=== PATIENT | male | born 2000 | race Caucasian/White ===

== ENCOUNTER 2021-04-29 02:12 | Emergency (ER) | payer OTHER, SELFPAY ==
[2021-04-29 02:17] VITALS: BP 137/80; PULSE 81; RESP 18; TEMP 37.1; O2SAT 96; BMI 25.0
[2021-04-29 03:12] LABS: Ethanol < 10 mg/dL
[2021-04-29 03:13] LABS: COVID-19 Test Negative (Negative)
[2021-04-29 03:21] LABS: Amphetamine Screen Urine Not Detected (Not Detect); Barbiturates, Urine Not Detected (Not Detect); Benzodiazepines Screen Urine Not Detected (Not Detect); Cannabinoid Screen Urine Not Detected (Not Detect); Cocaine Screen Urine Not Detected (Not Detect); Fentanyl, urine Not Detected (Not Detect); Opiate Screen Urine Not Detected (Not Detect); Phencyclidine Screen Urine Not Detected (Not Detect)
--- NOTE | 2021-04-29 04:00 | ED_ITS ---
HPI - Psych General Chief Complaint: Psychiatric Symptoms Stated Complaint: si Time Seen by Provider: 04/29/21 02:21 Source: patient Mode of arrival: EMS History of Present Illness HPI Narrative: 20-year-old male with arrival via EMS due to a break-up with his girlfriend that resulted in him having feelings of wanting to go home and ?hang myself?. Patient states that he has struggled with suicidal thoughts in the past and has had admissions for those the last of which he states was just prior to 2014. He endorses that he has been on medications when he was younger, but is no longer taking those medications at this time. He is on a waiting list to see a therapist and states that he is looking forward to being able to better manage the way that he feels. Related Data Allergies Allergy/AdvReac Type Severity Reaction Status Date / Time amphetamine [From Adderall] Allergy Intermediate Chills Verified 04/29/21 02:26 dextroamphetamine Allergy Intermediate Chills Verified 04/29/21 02:26 [From Adderall] aripiprazole [From Abilify] AdvReac Severe Anaphylaxis Verified 04/29/21 02:25 Review of Systems Review of Systems: Pertinent positives and negatives as stated in HPI 10 point review of systems is otherwise negative. [facility] Past Medical History Source: nursing notes reviewed Social History Social History Advance Directives: No Advance Directives Information Provided: No Physical Exam Vital Signs: Vital Signs: Last Vital Signs Temp 98.7 F 04/29/21 02:17 Pulse 81 04/29/21 02:17 Resp 18 04/29/21 02:17 BP 137/80 04/29/21 02:17 Pulse Ox 96 04/29/21 02:17 Body Mass Index 25.0 VITAL SIGNS: Reviewed. GENERAL: Well developed, well nourished, in no acute distress. HEAD: Normocephalic/atraumatic EYES: PERRLA, EOMI LUNGS: Normal breath sounds. No adventitious sounds or accessory muscle use. SpO2<96> CARDIOVASCULAR: Regular rate and rhythm without noted murmurs ABDOMEN: Soft, non-tender, non-distended with bowel sounds. NEUROLOGIC: Alert and oriented x 4. PSYCH: Normal affect, logical thought process, cooperative Course Course Course Narrative: 20-year-old male with history of depression and suicidal ideation who presents with initial suicidal thoughts of hanging himself that he does not feel he would follow through with, but appears to have insight and states that he would ?never actually do it?. On review all investigations he is otherwise cleared for further evaluation by the behavioral team. Patient was evaluated by the behavioral team and their recommendations are for discharge as patient has a therapist which he will follow-up with today, and they plan to contact the patient and communicate with him for the next 2-3 days to ensure that he follows up with this plan. MDM - Psych Lab Data Labs: Lab Results 04/29/21 04/29/21 04/29/21 Range/Units 02:32 02:32 02:32 Urine Opiates Screen Not Detected (Not Detect) Urine Fentanyl Screen Not Detected (Not Detect) Ur Barbiturates Screen Not Detected (Not Detect) Ur Phencyclidine Scrn Not Detected (Not Detect) Ur Amphetamines Screen Not Detected (Not Detect) U Benzodiazepines Scrn Not Detected (Not Detect) Urine Cocaine Screen Not Detected (Not Detect) U Marijuana (THC) Screen Not Detected (Not Detect) Ethyl Alcohol < 10 mg/dL COVID-19 ([facility]ADIM) Negative (Negative) COVID-19 Clin Com See Note Discharge Plan Discharge Clinical Impression: Depression, Acute anxiety Patient Disposition: Home, Self-Care Instructions: Depression (ED), Anxiety (ED) Additional Instructions: Follow-up with your therapist this morning. Do not hesitate to return to the emergency room if you feel any worsening of your symptoms.
--- NOTE | 2021-04-29 06:37 | PC.NURSE ---
Patient is in bed appears leeping, no distress observed/reported, BHN assessed the patient disposition d/c home and f/u with therapist, VSJarrett, will continue to monitor
[2021-04-29 07:35] VITALS: RESP 16
== END 2021-04-29 09:39 | disposition home or self-care (01) ==
PROVIDERS: Emergency Provider Student in an Organized Health Care Education/Training Program
DX: F33.1 Major depressive disorder, recurrent, moderate (principal); R45.851 Suicidal ideations; F41.1 Generalized anxiety disorder; F43.0 Acute stress reaction; Z20.822 Contact with and (suspected) exposure to COVID-19; Z79.899 Other long term (current) drug therapy
CPT/HCPCS: 36415; 80307; 82077; 87635; 99284

== ENCOUNTER 2021-05-29 18:37 | Emergency (ER) | payer OTHER, SELFPAY ==
[2021-05-29 18:48] VITALS: BP 135/77; PULSE 104; RESP 17; TEMP 38.1; O2SAT 97; BMI 32.5
--- NOTE | 2021-05-29 19:03 | ED.URI ---
HPI - URI/Sore Throat General Chief Complaint: Upper Respiratory Symptoms Stated Complaint: bleeding tonsils Time Seen by Provider: 05/29/21 18:42 Source: patient and EMS Mode of arrival: EMS Limitations: no limitations History of Present Illness HPI Narrative: 20-year-old male presents to the ER with severe sore throat and swollen tonsils started yesterday. He reports painful and difficulty talking, difficulty eating and drinking. He reports having a ?hacking sick? and coughed up some bloody sputum. He describes it as blood-streaked phlegm. This scared him so he called 911. He also reports subjective fevers and chills. He was unable to eat today because of pain. He reports voice changes and pain with speaking. No neck swelling. No nausea, vomiting, diarrhea or abdominal pain. He reports his girlfriend just found out she has strep throat. MD elicited complaint: sore throat Onset (ago): day(s) (1) Consistency: constant Severity: severe Pain scale (0-10): 10 Description of mucous: bloody Able to tolerate fluids by mouth: Yes Exacerbating factors: swallowing and speaking Relieving factors: nothing Context: sick contacts (Girlfriend just got diagnosed with strep throat) Associated symptoms: fever, voice changes and sore throat Treatments prior to arrival: none Related Data Previous Rx's Medication Instructions Recorded amoxicillin 500 mg tablet 500 mg PO Q12H #20 tab 05/29/21 Allergies Allergy/AdvReac Type Severity Reaction Status Date / Time amphetamine [From Adderall] Allergy Intermediate Chills Verified 04/29/21 02:26 dextroamphetamine Allergy Intermediate Chills Verified 04/29/21 02:26 [From Adderall] aripiprazole [From Abilify] AdvReac Severe Anaphylaxis Verified 04/29/21 02:25 Review of Systems Review of Systems: Constitutional: + Fever, + Chills ENT/Mouth: + sore throat, No Rhinorrhea, No Swallowing Difficulty Eyes: No Eye Pain, No Swelling, No Redness Cardiovascular: No Chest Pain, No SOB, No Orthopnea, No Edema Respiratory: + Cough, + Sputum, No Wheezing, No dyspnea Gastrointestinal: No Nausea, No Vomiting, No Diarrhea, No abdominal Pain Musculoskeletal: No joint pain, No Myalgias Skin: No Skin Lesions, No rash Neuro: No Weakness, No Numbness, No Dizziness, + Headache Psych: + Anxiety/Panic, No Depression Heme/Lymph: No Bruising, No Lymphadenopathy PMFSH Social History Social History Advance Directives: No Advance Directives Information Provided: No Physical Exam Vital Signs: Vital Signs: Last Vital Signs Temp 99.5 F 05/29/21 20:00 Pulse 99 05/29/21 20:00 Resp 17 05/29/21 20:00 BP 128/76 05/29/21 20:00 Pulse Ox 96 05/29/21 20:00 Body Mass Index 32.5 Appearance: Alert. Oriented X3. No acute distress. Eyes: Pupils equal, round and reactive to light. ENT: Posterior oropharynx with severe generalized erythema and bilateral tonsillar swelling, no exudate, uvula midline, no peritonsillar abscess appreciated. Voice is hoarse. He is handling secretions normally. Neck: Normal inspection. Neck supple. No neck swelling. CVS: Normal heart rate and rhythm. Pulses normal. Respiratory: No respiratory distress. Breath sounds normal. Abdomen: Soft and nontender. +BS x4 Skin: Skin warm and dry. Normal skin color. Normal skin turgor. No rashes. Extremities: No lower extremity edema. Neuro: Oriented X 3. No motor deficit. No sensory deficit. Course Course Course Narrative: 20-year-old male reporting to the ER with severe sore throat, hoarse voice difficulty eating and drinking and reports of bloody sputum x1. On arrival he is in no distress handling secretions normally; he does avoid hoarse voice. He is a low-grade fevers hemodynamically stable. Suspect strep throat given the known exposure. No signs of peritonsillar or retropharyngeal abscess. Will medicate and reassess. Will test for COVID as well, although suspicion is low. Reevaluation(s) Reevaluation #1: Strep positive. Tolerated oral medications well. He is feeling better. His voice is much better. He is stable for discharge home with oral antibiotics. MDM - URI/Sore Throat Lab Data Labs: Lab Results 05/29/21 05/29/21 Range/Units 19:18 19:18 COVID-19 ([facility]ADIM) Negative (Negative) COVID-19 Clin Com See Note S. pyogenes GrpA LUCIA Positive A (Negative) Critical Care Time Critical Care Time Critical Care Time: No Discharge Plan Discharge Clinical Impression: Pharyngitis Qualifiers: Pharyngitis/tonsillitis etiology: streptococcus Qualified Code(s): J02.0 - Streptococcal pharyngitis Patient Disposition: Home, Self-Care Instructions: Strep Throat (ED) Additional Instructions: You were found to have strep throat. Take the prescribed antibiotics as directed. Start 1st thing tomorrow morning. Recommend warm saltwater gargle several times per day. Get [id number] Chloraseptic spray or step call lozenges, both found in the cold and flu I will to help numb the back your throat. Follow-up with your doctor as needed. If you develop new or worsening symptoms call 911 or come back to the ER for further evaluation. Prescriptions: New amoxicillin 500 mg tablet 500 mg PO Q12H Qty: 20 RF: 0
[2021-05-29 19:31] LABS: IDNOW Serial# 08D9AD1C; Strep A Nucleic Acid Positive (Negative)
[2021-05-29] MEDS: Ketorolac Tromethamine 60 MG/2 ML VIAL IM (19:32)
[2021-05-29] MEDS: dexAMETHasone sod phosphate 10 MG/ML VIAL PO (19:32)
[2021-05-29 19:42] LABS: COVID-19 Test Negative (Negative); IDNOW Serial# 9DD0AD1C
[2021-05-29 20:00] VITALS: BP 128/76; BP 160/112; PULSE 112; PULSE 99; RESP 17; TEMP 37.5; O2SAT 96; O2SAT 97
[2021-05-29] MEDS: Acetaminophen Oral Liquid 650 MG/20.3 ML SOLUTION PO (21:33)
[2021-05-29] MEDS: Lidocaine HCl Viscous 2 % 15 ML SOLUTION MUCOUS MEM (21:34)
== END 2021-05-29 21:51 | disposition home or self-care (01) ==
PROVIDERS: Physician Assistant; Emergency Provider Emergency Medicine
DX: J02.0 Streptococcal pharyngitis (principal); Z20.822 Contact with and (suspected) exposure to COVID-19
CPT/HCPCS: 36415; 87635; 87651; 96372; 99284; J1100; J1885

== ENCOUNTER 2021-07-06 04:48 | Emergency (ER) | payer OTHER, SELFPAY ==
--- NOTE | ~2021-07-06 | XR_ITS ---
EXAMINATION: XR CHEST CLINICAL INFORMATION: Cough and shortness of breath COMPARISON: None TECHNIQUE: Frontal view of the chest was obtained. FINDINGS: Cardiac leads overlie the chest. The lungs are well expanded. There is no focal consolidation, edema, or effusion. No pneumothorax. The cardiomediastinal silhouette is within normal limits. No acute osseous abnormality. XR/XR chest 1V IMPRESSION: Clear lungs.
[2021-07-06 04:55] VITALS: BP 132/70; PULSE 104; RESP 30; TEMP 36.9; O2SAT 95; BMI 38.0
[2021-07-06 05:01] VITALS: BP 118/60; PULSE 100
--- NOTE | 2021-07-06 05:01 | ED.SOB ---
HPI - SOB/Dyspnea General Chief Complaint: Dyspnea Stated Complaint: diff breathing Time Seen by Provider: 07/06/21 04:59 Source: patient and EMS Mode of arrival: EMS Limitations: no limitations History of Present Illness HPI Narrative: Patient with history of asthma been sick for last few weeks got worse for last 5 days was seen at [facility] week ago and was given prednisone with partial relief now comes back for increased shortness of breath for last few days having dry cough no fever no chills patient also been vaccinated against COVID-19 and last week COVID-19 test was negative no fever no chills cough is mostly dry Related Data Previous Rx's Medication Instructions Recorded amoxicillin 500 mg tablet 500 mg PO Q12H #20 tab 05/29/21 albuterol sulfate 90 mcg/actuation 2 puff INHALATION Q4-6H PRN #8.5 g 07/06/21 aerosol inhaler (ProAir HFA) benzonatate 200 mg capsule 200 mg PO TID PRN #30 cap 07/06/21 dexamethasone 6 mg tablet 6 mg PO DAILY #7 tab 07/06/21 (Decadron) Allergies Allergy/AdvReac Type Severity Reaction Status Date / Time amphetamine [From Adderall] Allergy Intermediate Chills Verified 04/29/21 02:26 dextroamphetamine Allergy Intermediate Chills Verified 04/29/21 02:26 [From Adderall] aripiprazole [From Abilify] AdvReac Severe Anaphylaxis Verified 04/29/21 02:25 Review of Systems Review of Systems: Yes all other systems are reviewed and are negative [facility] Social History Social History Advance Directives: No Physical Exam Vital Signs: Vital Signs: Last Vital Signs Temp 98.5 F 07/06/21 04:55 Pulse 100 07/06/21 05:28 Resp 16 07/06/21 05:28 BP 134/69 07/06/21 05:28 Pulse Ox 94 07/06/21 05:28 BMI result Body Mass Index 38.0 Appearance: Alert. Oriented X3. Coughing frequently ENT: Pharynx normal. Oral Mucosa moist Neck: Normal inspection. Neck supple. CVS: Normal heart rate and rhythm. Pulses normal. Respiratory: Moderate respiratory distress. With frequent cough, Equal air entry bilateral, prolonged expiration bilateral Abdomen: Soft and nontender. Bowel sounds are present, Skin: Skin warm and dry. Normal skin color. Normal skin turgor. Extremities: No lower extremity edema. No calf tenderness Neuro: Oriented X 3. MDM - SOB/Dyspnea MDM Narrative Medical decision making narrative: Patient with asthma chest x-ray negative COVID-19 negative felt better after steroids and magnesium and nebulizing treatment discharge patient home on steroids patient does have a cat at home may be the cause for frequent exacerbation Lab Data Attestation: I reviewed the patient's lab results. Labs: Lab Results 07/06/21 Range/Units 05:00 COVID-19 (VADIM) Negative (Negative) COVID-19 Clin Com See Note Discharge Plan Discharge Clinical Impression: Asthma with exacerbation Qualifiers: Asthma severity: moderate Asthma persistence: persistent Qualified Code(s): J45.41 - Moderate persistent asthma with (acute) exacerbation Patient Disposition: Home, Self-Care Instructions: Asthma (ED) Additional Instructions: Continue your inhalers /nebulizing treatment take prednisone as prescribed follow with PCP Prescriptions: New dexamethasone [Decadron] 6 mg tablet 6 mg PO DAILY Qty: 7 RF: 0 benzonatate 200 mg capsule 200 mg PO TID PRN (Reason: cough) Qty: 30 RF: 0 albuterol sulfate [ProAir HFA] 90 mcg/actuation HFA aerosol inhaler 2 puff inhalation Q4-6H PRN (Reason: shortness of breath or wheezing) Qty: 8.5 RF: 0 No Action amoxicillin 500 mg tablet 500 mg PO Q12H Qty: 20 RF: 0
[2021-07-06 05:03] VITALS: PULSE 100; RESP 20; O2SAT 93
[2021-07-06] MEDS: Albuterol Sulfate (0.083%) 2.5 MG/3 ML VIAL.NEB 5 MG INHALE ×2 (05:03→06:47)
[2021-07-06] MEDS: Albuterol/Iprat 2.5/0.5MG 3 ML AMPUL.NEB INHALE (05:03)
--- NOTE | 2021-07-06 05:03 | PC.NURSE ---
MD and RT at bedside for eval. Plan for hour long UPD and CXR. Covid swab obtained and sent.
[2021-07-06 05:20] LABS: COVID-19 Test Negative (Negative); IDNOW Serial# 9DD0AD1C
[2021-07-06] MEDS: Magnesium Sulfate/H2O 2 GM/50 ML PIGGYBACK IV (05:25)
[2021-07-06] MEDS: dexAMETHasone 2 MG TABLET 10 MG PO (05:25)
[2021-07-06 05:28] VITALS: BP 134/69; PULSE 100; RESP 16; O2SAT 94
--- NOTE | 2021-07-06 05:28 | PC.NURSE ---
Medicated per MAR.
[2021-07-06 06:47] VITALS: PULSE 104; RESP 20; O2SAT 98
== END 2021-07-06 07:14 | disposition home or self-care (01) ==
PROVIDERS: Emergency Provider Internal Medicine
DX: J45.41 Moderate persistent asthma with (acute) exacerbation (principal); R06.02 Shortness of breath; Z79.899 Other long term (current) drug therapy; Z20.822 Contact with and (suspected) exposure to COVID-19
CPT/HCPCS: 36415; 71045; 87635; 94640; 94644; 94645; 96365; 99284; 99285; J3475; J8540

== ENCOUNTER 2021-07-28 20:03 | Emergency (ER) | payer OTHER, SELFPAY ==
--- NOTE | ~2021-07-28 | XR_ITS ---
EXAMINATION: XR CHEST CLINICAL INFORMATION: Shortness of breath. COMPARISON: Chest radiograph dated from 07/06/2021. TECHNIQUE: AP view of the chest was obtained. FINDINGS: Normal appearance of the cardiomediastinal silhouette. Mildly increased interstitial prominence without focal airspace opacities, pleural effusions or pneumothorax. No acute osseous abnormalities. XR/XR chest 1V IMPRESSION: Increased interstitial markings are indeterminate and could be related with asthma, bronchitis, reactive airways disease or atypical infections. No lobar pneumonia. No pleural effusions or pneumothorax.
[2021-07-28 20:05] VITALS: BP 122/84; PULSE 115; O2SAT 94
[2021-07-28 20:19] VITALS: BP 131/62; PULSE 104; RESP 20; TEMP 36.6; O2SAT 95; BMI 40.0
--- NOTE | 2021-07-28 20:28 | ED_ITS ---
HPI - General Adult General Chief complaint: General Medical Stated complaint: Covid +/Diff breathing Time Seen by Provider: 07/28/21 20:28 History of Present Illness HPI narrative: Patient had COVID 10 days ago complaining of shortness of breath and wheezing with getting worse using a alert and update of treatment at home for not helping him out also patient had dry cough and small blood tinged blood came out last time when he coughs Related Data Previous Rx's Medication Instructions Recorded amoxicillin 500 mg tablet 500 mg PO Q12H #20 tab 05/29/21 albuterol sulfate 90 mcg/actuation 2 puff INHALATION Q4-6H PRN #8.5 g 07/06/21 aerosol inhaler (ProAir HFA) benzonatate 200 mg capsule 200 mg PO TID PRN #30 cap 07/06/21 dexamethasone 6 mg tablet 6 mg PO DAILY #7 tab 07/06/21 (Decadron) codeine 10 mg-guaifenesin 100 mg/5 10 ml PO Q6H PRN #237 ml 07/28/21 mL oral liquid prednisone 20 mg tablet 40 mg PO DAILY #10 tab 07/28/21 Allergies Allergy/AdvReac Type Severity Reaction Status Date / Time amphetamine [From Adderall] Allergy Intermediate Chills Verified 04/29/21 02:26 dextroamphetamine Allergy Intermediate Chills Verified 04/29/21 02:26 [From Adderall] aripiprazole [From Abilify] AdvReac Severe Anaphylaxis Verified 04/29/21 02:25 [facility] Social History Social History Advance Directives: No Advance Directives Information Provided: No Physical Exam Vital Signs: Vital Signs: Last Vital Signs Temp 97.8 F 07/28/21 20:19 Pulse 96 07/29/21 00:04 Resp 16 07/29/21 00:04 BP 131/62 07/28/21 20:19 Pulse Ox 102 H 07/29/21 00:04 Oxygen Flow Rate 2 07/28/21 20:19 BMI result Body Mass Index 40.0 Appearance: Alert. Oriented X3. Coughing frequently ENT: Pharynx normal. Oral Mucosa moist Neck: Normal inspection. Neck supple. CVS: Normal heart rate and rhythm. Pulses normal. Respiratory: No respiratory distress. Equal air entry bilateral, bilateral wheezing and rhonchi Abdomen: Soft and nontender. Bowel sounds are present, Skin: Skin warm and dry. Normal skin color. Normal skin turgor. Extremities: No lower extremity edema. No calf tenderness Neuro: Oriented X 3. Medical Decision Making MDM Narrative Medical decision making narrative: Patient with asthma COVID-19 negative at this time already had COVID 10 days ago surgeon 94% at room air will discharge patient home advised to quit take prednisone continue inhaler Lab Data Lab results reviewed: Yes I reviewed the patient's lab results. Labs: Lab Results 07/28/21 Range/Units 22:19 COVID-19 (VADIM) Negative (Negative) COVID-19 Clin Com See Note Discharge Plan Discharge Clinical Impression: Acute asthmatic bronchitis Patient Disposition: Home, Self-Care Instructions: Asthma (ED) Additional Instructions: Continues inhaler/nebulizing machine Prednisone as advised Follow with PCP if not better Cough syrup as advised Prescriptions: New codeine-guaifenesin 10-100 mg/5 mL liquid 10 ml PO Q6H PRN (Reason: cough) Qty: 237 RF: 0 prednisone 20 mg tablet 40 mg PO DAILY Qty: 10 RF: 0 No Action amoxicillin 500 mg tablet 500 mg PO Q12H Qty: 20 RF: 0 dexamethasone [Decadron] 6 mg tablet 6 mg PO DAILY Qty: 7 RF: 0 benzonatate 200 mg capsule 200 mg PO TID PRN (Reason: cough) Qty: 30 RF: 0 albuterol sulfate [ProAir HFA] 90 mcg/actuation HFA aerosol inhaler 2 puff inhalation Q4-6H PRN (Reason: shortness of breath or wheezing) Qty: 8.5 RF: 0
[2021-07-28] MEDS: Albuterol/Iprat 2.5/0.5MG 3 ML AMPUL.NEB INHALE (20:33)
[2021-07-28] MEDS: Albuterol Sulfate (0.083%) 2.5 MG/3 ML VIAL.NEB INHALE (20:33)
[2021-07-28 20:35] VITALS: PULSE 108; RESP 18; O2SAT 97
[2021-07-28] MEDS: dexAMETHasone 2 MG TABLET 10 MG PO (21:19)
[2021-07-28] MEDS: guaiFEN/Codeine SF 200/20/10ML 10 ML LIQUID PO (21:20)
[2021-07-28 22:00] VITALS: PULSE 107; RESP 17; O2SAT 94
[2021-07-28 22:42] LABS: COVID-19 Test Negative (Negative)
[2021-07-28 23:30] VITALS: PULSE 103; RESP 18; O2SAT 96
[2021-07-29 00:04] VITALS: PULSE 96; RESP 16; O2SAT 102
== END 2021-07-29 00:23 | disposition home or self-care (01) ==
PROVIDERS: Emergency Provider Internal Medicine
DX: J45.909 Unspecified asthma, uncomplicated (principal); Z20.822 Contact with and (suspected) exposure to COVID-19
CPT/HCPCS: 71045; 87635; 94640; 94644; 99284; 99285; J8540

== ENCOUNTER 2021-12-01 00:37 | Emergency (ER) | payer OTHER, SELFPAY ==
[2021-12-01 00:59] VITALS: BP 106/48; PULSE 75; RESP 18; TEMP 37; O2SAT 95; BMI 26.5
--- NOTE | 2021-12-01 02:04 | ED_ITS ---
HPI - Psych General Chief Complaint: Psychiatric Symptoms Stated Complaint: SI NO PLAN,SECTION 12 Time Seen by Provider: 12/01/21 02:04 Source: patient, EMS and police Mode of arrival: ambulatory Limitations: no limitations History of Present Illness HPI Narrative: 21-year-old male came in for evaluation of depression and suicidal ideation. Patient admitted that he broke up with his girlfriend earlier today feeling very depressed, patient initially was feeling suicidal and wanted to hurt himself, called suicidal hotline and the police, the police found a knife with the patient that he was going to hurt himself with, section 12 was initiated by the police and transported to the hospital. Patient now feels much calmer, no definitive plan to hurt himself at this point. Related Data Home Medications Medication Instructions Recorded Confirmed escitalopram oxalate 10 mg tablet 1 tab PO QAM 12/01/21 12/01/21 Previous Rx's Medication Instructions Recorded albuterol sulfate 90 mcg/actuation 2 puff INHALATION Q4-6H PRN #8.5 g 07/06/21 aerosol inhaler (ProAir HFA) Allergies Allergy/AdvReac Type Severity Reaction Status Date / Time amphetamine [From Adderall] Allergy Intermediate Chills Verified 04/29/21 02:26 dextroamphetamine Allergy Intermediate Chills Verified 04/29/21 02:26 [From Adderall] aripiprazole [From Abilify] AdvReac Severe Anaphylaxis Verified 04/29/21 02:25 Review of Systems Review of Systems: All other systems are reviewed and are negative Constitutional: Reports as per HPI and Reports no additional constitutional complaints Eyes: Reports as per HPI and Reports no additional eye complaints Reports system reviewed and no additional complaints, except as documented Cardiovascular: Reports as per HPI and Reports no additional cardiovascular co mplaints Respiratory: Reports as per HPI and Reports no additional respiratory complaints Gastrointestinal: Reports as per HPI and Reports no additional gastrointestinal complaints Genitourinary: Reports no additional female genitourinary complaints Musculoskeletal: Reports no additional musculoskeletal complaints Skin/Breast: Reports system reviewed and no additional complaints, except as docu Psychiatric: Reports no additional psychiatric complaints Endocrine: Reports no additional endocrine complaints Hematologic/Lymphatic: Reports no additional hematologic/lymphatic complaints Allergic/Immunologic: Reports no additional allergic/immunologic complaints Reports system reviewed and no additional complaints, except as documented and Reports Abnormal speech present [facility] Social History Social History Advance Directives: No Physical Exam Vital Signs: Vital Signs: Last Vital Signs Temp 98.6 F 12/01/21 00:59 Pulse 75 12/01/21 00:59 Resp 18 12/01/21 00:59 BP 106/48 L 12/01/21 00:59 Pulse Ox 95 12/01/21 00:59 BMI result Body Mass Index 26.5 Vital signs have been reviewed as appeared to be correct. Blood pressure normal. Heart rate normal. Respiration rate normal. Temperature normal. Oxygen saturation normal. Appearance: Alert. Oriented X3. No acute distress. Head: Normal external exam. Normocephalic. Atraumatic. No Barbosa signs noted. No raccoon eyes noted Eyes: PERRLA. EOMI. Conjunctiva and sclera normal. Eyelids normal. ENT: TM's Normal. Pharynx normal. Uvula midline. Moist mucous membranes. No trismus noted. No drooling noted. No muffled voice noted. Neck: Normal inspection. Neck supple. FROM. No adenopathy. Thyroid Normal. No meningeal signs. No neck mass noted. CVS: Normal heart rate and rhythm. Heart sound normal. No murmurs noted. Pulses normal throughout. Respiratory: No respiratory distress. Painless inspiration. Breath sounds normal. No wheezes/rales/rhonchi noted. Chest nontender. No accessory muscle usage noted or decreased air movement noted. Abdomen: Soft and nontender. Bowel sounds normal in all 4 quadrants. No distention noted. No organomegaly noted. No visible injury noted. Back: No CVA tenderness. Full range of motion noted. Skin: Skin warm and dry. Normal skin color. Normal skin turgor. No rashes/lesions/lacerations noted. Extremities: No lower extremity edema. Extremities exhibit normal range of motion. Extremities nontender. Neuro: Oriented X 3. Cranial nerve exam: II-XII are grossly intact No motor deficit. No sensory deficit. Reflexes normal. Patient Orientation: Person, Place, Time and Situation Level of Consciousness: Awake, Appropriate and Alert Patient Behavior: Appropriate, Guarded, Cooperative and Anxious Mood Description: Constricted, Blunted and Apprehensive Affect Description: Constricted, Blunted and Apprehensive Patient Cognition Impaired: No Ability to Follow Directions: Excellent Speech Pattern: Clear, Appropriate and Spontaneous Speech Memory Description: Intact, Immediate Intact and Short Term Intact Hallucinations: None Delusions: Not Present Thought Process: Intact Thought Content: positive for Intact, positive for Logical, denies Suicidal Ideation and denies Homicidal Ideation. Depressive Symptoms: Feeling emotionally distressed. Judgement: Good Judgement and Insight: Intact Course Course Course Narrative: Assessment and plan. Depression and suicidal ideation await for BHN evaluation. Reevaluation(s) Reevaluation #1: Physician observation started at2:00 . Patient placed in physician observation because the patient needed more for BHN evaluate , patient is alert and oriented , neuro exam unchanged, unremarkable rest of physical exam. Time: 02:09 Discharge Plan Discharge Clinical Impression: Depression, Suicidal ideation Prescriptions: No Action escitalopram oxalate 10 mg tablet 1 tab PO QAM 0RF albuterol sulfate [ProAir HFA] 90 mcg/actuation HFA aerosol inhaler 2 puff inhalation Q4-6H PRN (Reason: shortness of breath or wheezing) Qty: 8. 5 0RF
[2021-12-01 02:09] LABS: Amphetamine Screen Urine Not Detected (Not Detect); Barbiturates, Urine Not Detected (Not Detect); Benzodiazepines Screen Urine Not Detected (Not Detect); Cannabinoid Screen Urine Not Detected (Not Detect); Cocaine Screen Urine Not Detected (Not Detect); Fentanyl, urine Not Detected (Not Detect); Opiate Screen Urine Not Detected (Not Detect); Phencyclidine Screen Urine Not Detected (Not Detect)
[2021-12-01 02:20] LABS: COVID-19 Test Negative (Negative)
[2021-12-01 03:02] LABS: MANUAL DIFF FLAG NO
[2021-12-01 03:05] LABS: Basophils Percent Auto 0.4 % (0-2); Eosinophils Absolute Auto 0.8 X10*3/uL (0.0-0.4); Eosinophils Percent Auto 7.9 % (0-4); Hemoglobin 17.5 g/dl (14.0-18.0); Imm Gran Abs Auto 0.02 X10*3/uL (0.00-0.03); Imm Gran Pct Auto 0.2 % (0.0-0.4); Lymphocytes Absolute Auto 3.5 X10*3/uL (1.2-4.9); Lymphocytes Percent Auto 34.9 % (20-40); Mean Corpuscular Hemoglobin 28.3 pg (27.0-33.0); Mean Corpuscular Volume 80.8 fL (80.0-98.0); Mean Platelet Volume 10.5 fL (9.4-12.4); Monocytes Absolute Auto 0.7 X10*3/uL (0.1-1.2); Monocytes Percent Auto 7.1 % (2-11); Neutrophils Absolute Auto 4.9 x10*3/uL (2.0-8.3); Neutrophils Percent Auto 49.5 % (45-73); Platelet Count 240 X10*3/uL (160-400); Red Blood Count 6.19 X10*6/uL (4.60-5.80); Red Cell Distribution Width 12.9 % (11.0-16.0); White Blood Count 9.9 X10*3/uL (4.8-10.8)
[2021-12-01 03:19] LABS: Ethanol < 10 mg/dL
[2021-12-01 03:21] LABS: Anion Gap 13 (12-20); Blood Urea Nitrogen 15 mg/dL (9-16); Calcium 9.6 mg/dL (8.4-10.2); Carbon Dioxide 26 mmol/L (22-29); Chloride 105 mmol/L (96-108); Creatinine Clr Calc Pharmacy 119.2; Estimated Glomerular Filt Rate > 60; Glucose Random 87 mg/dL (60-115); Potassium 3.9 mmol/L (3.3-5.1); Sodium 140 mmol/L (135-145)
--- NOTE | 2021-12-01 06:50 | PC.NURSE ---
Patient slept through the night, no distress observed/reported, behavior non concerning, med rec completed/pending provider's approval, VSS, BHN referral completed/confirmed/pending ETA, will continue to monitor.
[2021-12-01] MEDS: Escitalopram Oxalate 10 MG TABLET PO (07:39)
[2021-12-01 07:42] VITALS: BP 124/61; PULSE 62; RESP 13; TEMP 36.7; O2SAT 97
--- NOTE | 2021-12-01 09:37 | PC.NURSE ---
care team at bedside
--- NOTE | 2021-12-01 13:18 | MHC.CARE ---
0900 CARE Team met with patient in [facility] for risk assessment and treatment recommendations. He was alert, oriented and easily engage, appeared his stated age, had a loud, clear voice at times used profanity in his excitement but apologized. Thought process linear but notable for expansive descriptions and derailing to discuss preferred topics such as WWII facts. Patient explained that last night he and his longtime girlfriend broke up and he was walking home, felt devastated and called 911. Had a knife in his pocket which he always carries and told the police that he had it but did consider using it on himself. Reported that he and his girlfriend have been in an unhealthy relationship on and off for years and do break up frequently and admitted that he gets worked up easily and can be dramatic. 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 Stated that he gets into crisis mode but uses skills and resources vs calling 911 or coming to the hospital. Has a therapist at [facility] that he has weekly sessions with and is prescribed Lexapro which he has not been taking consistently but did today and said he could feel the effect of it calming him down. We talked about various ways to take medication at the same time every day. Patient denied current suicidal ideation plan or intention and has no history of gestures or attempts, is future oriented and has good support. Spoke to patient?s mother at length, she does not have concerns about patient taking his own life, she understands her son?s ups and downs as well as the relationship issues. Discussed medication compliance and she acknowledged that encouraging him to take medication is ineffective and agreed to hand her son the medication until a routine is established because it will help maintain stability. Patient is not in acute crisis and does not need an inpatient psychiatric admission. Patient completed safety plan and was given information about live and zoom peer support programs and warm lines. Mother will come pick patient up when discharge is complete. ED provider JUNO Villa in agreement with plan of care.
== END 2021-12-01 11:20 | disposition home or self-care (01) ==
PROVIDERS: Emergency Provider Emergency Medicine
DX: F33.1 Major depressive disorder, recurrent, moderate (principal); R45.851 Suicidal ideations; Z79.899 Other long term (current) drug therapy; Z20.822 Contact with and (suspected) exposure to COVID-19
CPT/HCPCS: 36415; 80048; 80307; 82077; 85025; 87635; 99284

== ENCOUNTER 2021-12-26 11:24 | Emergency (ER) | payer OTHER, SELFPAY ==
--- NOTE | ~2021-12-26 | XR_ITS ---
EXAMINATION: XR CHEST CLINICAL INFORMATION: Shortness of breath, cough, wheezing, low oxygen COMPARISON: Chest radiographs 07/28/2021, 07/06/2021 TECHNIQUE: Portable upright AP view of the chest was obtained. FINDINGS: The lungs are clear. There is no lobar or segmental airspace consolidation or groundglass opacity. No pneumothorax or pleural reaction or effusion. The costophrenic sulci are clear. No pneumothorax or pneumomediastinum. Heart size normal. Vascularity normal. The hilar and mediastinal contours and bony structures are unremarkable. XR/XR chest 1V IMPRESSION: Unremarkable examination.
--- NOTE | ~2021-12-26 | XR_ITS ---
EXAMINATION: CR X-RAY ANKLE AND FOOT RIGHT CLINICAL INFORMATION: Right ankle and foot pain. COMPARISON: None TECHNIQUE: 3 views each of the right foot and ankle were obtained. FINDINGS: There is no acute fracture or dislocation. The joint spaces are unremarkable. The tarsal bones are normally aligned. The soft tissues are unremarkable. XR/XR ankle RT min 3V IMPRESSION: Unremarkable right foot and ankle.
--- NOTE | ~2021-12-26 | XR_ITS ---
EXAMINATION: CR X-RAY ANKLE AND FOOT RIGHT CLINICAL INFORMATION: Right ankle and foot pain. COMPARISON: None TECHNIQUE: 3 views each of the right foot and ankle were obtained. FINDINGS: There is no acute fracture or dislocation. The joint spaces are unremarkable. The tarsal bones are normally aligned. The soft tissues are unremarkable. XR/XR foot RT min 3V IMPRESSION: Unremarkable right foot and ankle.
[2021-12-26 11:29] VITALS: BP 128/82; PULSE 85; O2SAT 94
[2021-12-26 11:30] VITALS: BP 128/62; PULSE 80; RESP 19; TEMP 37.6; O2SAT 92; BMI 33.2
[2021-12-26 11:46] VITALS: PULSE 84; O2SAT 94
[2021-12-26] MEDS: Albuterol Sulfate (0.083%) 2.5 MG/3 ML VIAL.NEB 10 MG INHALE (11:46)
--- NOTE | 2021-12-26 11:48 | ED_ITS ---
HPI - Asthma General Chief Complaint: Upper Respiratory Symptoms Stated Complaint: DIFF BREATHING,H/O ASTHMA,GETTING DUONEB PER EMS Time Seen by Provider: 12/26/21 11:35 Source: patient and EMS Mode of arrival: EMS Limitations: no limitations History of Present Illness HPI Narrative: 21-year-old male with a past medical history of asthma who reports he is a daily smoker of cigarettes presenting to the ED via EMS with complaints of a productive cough with clear/ yellow colored sputum with associated shortness of breath /wheezing for the past 3 days worse today despite using his albuterol inhaler and nebulizers of albuterol at home. Reports he has been frequently hospitalized and seen in the ER for similar complaints. He reports he has never been intubated. He denies any fevers, chills, dizziness, nasal congestion /rhinorrhea, sore throat, chest pain, dyspnea on exertion, orthopnea, palpitations, paresthesias, nausea/vomiting / diarrhea constipation, black or bloody stools, rashes, recent travel or sick contacts, lower extremity edema or calf tenderness or any other symptoms complaints or concerns at this time. MD complaint: asthma attack , shortness of breath and wheezing Onset (ago): day(s) (3) Severity: severe and similar to prior Context: none known Associated symptoms: productive cough Asthma History: childhood onset, history of frequent attacks and history of prior ED visit Treatments Prior to Arrival: inhaled bronchodilator Related Data Current Asthma Therapy: inhaled bronchodilator Home Medications Medication Instructions Recorded Confirmed escitalopram oxalate 10 mg tablet 1 tab PO QAM 12/01/21 12/01/21 Previous Rx's Medication Instructions Recorded albuterol sulfate 90 mcg/actuation 2 puff inhalation Q4-6H PRN 07/06/21 aerosol inhaler (ProAir HFA) shortness of breath or wheezing #8.5 grams albuterol sulfate 0.63 mg/3 mL 0.63 mg (3 mL) inhalation QID PRN 12/26/21 solution for nebulization shortness of breath or wheezing #75 mL albuterol sulfate 90 mcg/actuation 1 inh inhalation QID PRN shortness 12/26/21 aerosol inhaler of breath or wheezing #8.5 grams azithromycin 250 mg tablet See Rx Instructions PO .COMPLEX #6 12/26/21 tabs codeine 10 mg-guaifenesin 100 mg/5 5 ml PO Q6H PRN cold symptoms #120 12/26/21 mL oral liquid (Guaifenesin AC) mL prednisone 20 mg tablet 40 mg PO DAILY rash 5 days #10 tabs 12/26/21 Allergies Allergy/AdvReac Type Severity Reaction Status Date / Time amphetamine [From Adderall] Allergy Intermediate Chills Verified 04/29/21 02:26 dextroamphetamine Allergy Intermediate Chills Verified 04/29/21 02:26 [From Adderall] aripiprazole [From Abilify] AdvReac Severe Anaphylaxis Verified 04/29/21 02:25 Review of Systems Review of Systems: Constitutional : denies med noncompliance, no history of PE or DVT, denies recent travel, No Fever, No Chills ENT/Mouth : No Hoarseness, No sore throat, No Rhinorrhea, No Nasal congestion, No Sinus Pressure, No Ear Pain, No stridor, Eyes: No Redness, No Discharge, No Vision Changes Cardiovascular : No Chest Pain, + SOB, No Dyspnea on Exertion, No Edema, no pleurisy, Respiratory : + Cough, + wheezing, + Sputum, no stridor, no hemoptysis, Gastrointestinal : No Nausea, No Vomiting, No Diarrhea, No abdominal Pain Genitourinary : No Dysuria, No Hematuria Musculoskeletal : No joint pain/swelling, No Myalgias Extremities: no extremity swelling /pain Skin : No rash, no itching, no swelling Neuro : No Weakness, No Numbness, No Headache, No Dizziness, No Paresthesias Psych : No anxiety, depression Heme/Lymph: No Bruising, No Bleeding Endocrine : No Polyuria, No Polydipsia Yes all other systems are reviewed and are negative [facility] Past Medical History Attestation statement: The following information was validated with the patient. Source: old records reviewed and nursing notes reviewed Social History Social History Advance Directives: No Advance Directives Information Provided: No Physical Exam Vital Signs: Vital Signs: Last Vital Signs Temp 99.7 F 12/26/21 11:30 Pulse 84 12/26/21 11:46 Resp 19 12/26/21 11:30 BP 128/62 12/26/21 11:30 Pulse Ox 92 12/26/21 11:30 BMI result Body Mass Index 33.2 vital signs have been reviewed as normal and appeared to be correct. Blood pressure normal. Heart rate normal. Respiration rate normal. Temperature 99.7. Oxygen saturation 92. Appearance: Alert. Oriented X3. In acute respiratory distress. Head: Normal external exam. Normocephalic. Atraumatic. Eyes: PERRLA. EOMI. Conjunctiva and sclera normal. Eyelids normal. ENT: EAC normal. TM's Normal. Pharynx normal. Uvula midline. Moist mucous membranes. No lesions/ulcerations or masses noted on the tongue. Normal voice. No trismus noted. No drooling noted. No muffled voice noted. Neck: Normal inspection. Neck supple. FROM. No adenopathy. Thyroid Normal. No tracheal deviation noted. No crepitus is noted. No meningeal signs. No neck mass noted. No signs of trauma noted. CVS: Normal heart rate and rhythm. Heart sound normal. Pulses normal throughout. No murmurs/rales/gallops. Respiratory: In acute respiratory distress with decreased breath sounds and inspiratory and expiratory wheezing throughout. With accessory muscle usage noted in tracheal tugging. No rales/ rhonchi noted. No rales/rhonchi noted. Chest nontender. No crepitus is noted. Abdomen: Soft and nontender. Bowel sounds normal in all 4 quadrants. No distention noted. No organomegaly noted. No visible injury noted. Back: Full range of motion noted. Skin: Skin warm and dry. Normal skin color. Normal skin turgor. No rashes/lesions/lacerations noted. Extremities: No lower extremity edema. No calf tenderness is noted. Extremities exhibit normal range of motion and nontender. Neuro: Oriented X 3. No motor deficit. No sensory deficit. Reflexes normal. Normal steady gait. No focal neuro deficits noted. CN's II-XII intact bilaterally? Vascular: + radial pulses/+ 2 distal pedal pulses/+2 dorsalis pedis b/l. Normal cap refill. No cyanosis noted to upper extremity nails and lower extremity toes nails. Course Course Course Narrative: 11:45am - 21-year-old male with a past medical history of asthma who reports he is a daily smoker of cigarettes presenting to the ED via EMS with complaints of a productive cough with clear/ yellow colored sputum with associated shortness of breath /wheezing for the past 3 days worse today despite using his albuterol in haler and nebulizers of albuterol at home. Reports he has been frequently hospitalized and seen in the ER for similar complaints. He reports he has never been intubated. On exam patient is in acute respiratory distress with decreased breath sounds and inspiratory and expiratory wheezing throughout. No rales / rhonchi noted. Although accessory muscle usage noted tracheal tugging. Abdominal retractions also noted. Although no lower extremity edema or calf tenderness noted. Patient tolerated clear secretions well. No trismus/ drooling/ stridor. No stridor is noted. CV RRR. Plan: Labs, COVID/influenza swab, cxr. provide a L of IV fluids, hour long breathing treatment, 125 mg of IV Solu-Medrol, 2 g of magnesium and Robitussin with codeine and re-evaluate. Reevaluation(s) Reevaluation #1: - labs reviewed patient with an elevated white blood cell count at 11,000. mild baseline anemia. Total bilirubin 1.1. Otherwise all other labs are within normal limits. Patient negative for COVID and flu. - Chest x-ray within normal limits no acute processes noted. - Patient now complaining of right foot/ ankle pain after he twisted it at work and has some bruising on exam. although no obvious ligamentous or tendon injury noted. Therefore at this time will obtain an x-ray of his right foot/ ankle. - Otherwise patient feels much better his oxygen is now at 94% through 98% on room air and all other vitals are within normal limits. I did offer admission although patient would rather go home. Will re-evaluate after the right foot / ankle x-ray. Time: 13:05 Reevaluation #2: x-ray of right foot/ ankle within normal limits. Therefore at this time will DC home with asthma exacerbation antibiotics and steroids as patient does not want to be admitted after offered. Patient understands return if any new or worsening symptoms follow up with primary care provider. Time: 15:04 [facility] - Asthma Medical Records Attestation: I reviewed the patient's medical records. Lab Data Attestation: I reviewed the patient's lab results. Result diagrams: 12/26/21 12:19 12/26/21 12:19 Labs: Lab Results 06/13/22 06/13/22 06/13/22 Range/Units 12:19 12:19 12:36 WBC 11.2 H (4.8-10.8) X10*3/uL RBC 5.88 H (4.60-5.80) X10*6/uL Hgb 16.6 (14.0-18.0) g/dl Hct 47.1 (42.0-52.0) % MCV 80.1 (80.0-98.0) fL MCH 28.2 (27.0-33.0) pg MCHC 35.2 (31.0-36.0) g/dl RDW 13.2 (11.0-16.0) % Plt Count 252 (160-400) X10*3/uL MPV 9.9 (9.4-12.4) fL Immature Gran % (Auto) 0.3 (0.0-0.4) % Neut % (Auto) 52.2 (45-73) % Lymph % (Auto) 27.9 (20-40) % [place] % (Auto) 6.9 (2-11) % Eos % (Auto) 12.2 H (0-4) % Baso % (Auto) 0.5 (0-2) % Lymph # (Auto) 3.1 (1.2-4.9) X10*3/uL [place] # (Auto) 0.8 (0.1-1.2) X10*3/uL Eos # (Auto) 1.4 H (0.0-0.4) X10*3/uL Baso # (Auto) 0.1 (0.0-0.2) X10*3/uL Abs Immat Gran (auto) 0.03 (0.00-0.03) X10*3/uL Absolute Neuts (auto) 5.8 (2.0-8.3) x10*3/uL Absolute Nucleated RBC 0.000 (0.0-0.012) X10*3/uL Nucleated RBC % (auto) 0.0 (0.0-0.2) /100WBC Sodium 142 (135-145) mmol/L Potassium 3.3 (3.3-5.1) mmol/L Chloride 108 (96-108) mmol/L Carbon Dioxide 25 (22-29) mmol/L Anion Gap 12 (12-20) BUN 15 (9-16) mg/dL Creatinine 1.10 (0.5-1.4) mg/dL Estim Creat Clear Calc 137.8 Estimated GFR > 60 Random Glucose 93 (60-115) mg/dL Calcium 9.1 (8.4-10.2) mg/dL Magnesium 2.4 (1.6-2.6) mg/dL Total Bilirubin 1.1 H (0.0-1.0) mg/dL AST 28 (5-37) U/L ALT 31 (0-40) U/L Alkaline Phosphatase 98 (39-117) U/L Total Protein 6.5 (6.5-8.0) g/dL Albumin 4.2 (3.5-5.0) g/dL COVID-19 (VADIM) (Negative) COVID-19 Clin Com Influenza Type A (LUCIA) Negative (Negative) Influenza Type B (LUCIA) Negative (Negative) Influenza A & B Note See Note 12/26/21 Range/Units 12:36 WBC (4.8-10.8) X10*3/uL RBC (4.60-5.80) X10*6/uL Hgb (14.0-18.0) g/dl Hct (42.0-52.0) % MCV (80.0-98.0) fL MCH (27.0-33.0) pg MCHC (31.0-36.0) g/dl RDW (11.0-16.0) % Plt Count (160-400) X10*3/uL MPV (9.4-12.4) fL Immature Gran % (Auto) (0.0-0.4) % Neut % (Auto) (45-73) % Lymph % (Auto) (20-40) % [place] % (Auto) (2-11) % Eos % (Auto) (0-4) % Baso % (Auto) (0-2) % Lymph # (Auto) (1.2-4.9) X10*3/uL [place] # (Auto) (0.1-1.2) X10*3/uL Eos # (Auto) (0.0-0.4) X10*3/uL Baso # (Auto) (0.0-0.2) X10*3/uL Abs Immat Gran (auto) (0.00-0.03) X10*3/uL Absolute Neuts (auto) (2.0-8.3) x10*3/uL Absolute Nucleated RBC (0.0-0.012) X10*3/uL Nucleated RBC % (auto) (0.0-0.2) /100WBC Sodium (135-145) mmol/L Potassium (3.3-5.1) mmol/L Chloride (96-108) mmol/L Carbon Dioxide (22-29) mmol/L Anion Gap (12-20) BUN (9-16) mg/dL Creatinine (0.5-1.4) mg/dL Estim Creat Clear Calc Estimated GFR Random Glucose (60-115) mg/dL Calcium (8.4-10.2) mg/dL Magnesium (1.6-2.6) mg/dL Total Bilirubin (0.0-1.0) mg/dL AST (5-37) U/L ALT (0-40) U/L Alkaline Phosphatase (39-117) U/L Total Protein (6.5-8.0) g/dL Albumin (3.5-5.0) g/dL COVID-19 (VADIM) Negative (Negative) COVID-19 Clin Com See Note Influenza Type A (LUCIA) (Negative) Influenza Type B (LUCIA) (Negative) Influenza A & B Note Imaging Data Chest x-ray: Attestation: I personally reviewed and interpreted this imaging study as follows: Radiologist's impression: FINDINGS: The lungs are clear. There is no lobar or segmental airspace consolidation or groundglass opacity. No pneumothorax or pleural reaction or effusion. The costophrenic sulci are clear. No pneumothorax or pneumomediastinum. Heart size normal. Vascularity normal. The hilar and mediastinal contours and bony structures are unremarkable. XR/XR chest 1V IMPRESSION: Unremarkable examination. right ankle/foot: Attestation: I personally reviewed and interpreted this imaging study as follows: Radiologist's impression: FINDINGS: There is no acute fracture or dislocation. The joint spaces are unremarkable. The tarsal bones are normally aligned. The soft tissues are unremarkable.? XR/XR foot RT min 3V IMPRESSION: Unremarkable right foot and ankle.? Critical Care Time Critical Care Time Critical Care Time: Yes Total Critical Care Time: 60 Attestation: I personally attest to this time spent taking care of the patient Discharge Plan Discharge Clinical Impression: Asthma exacerbation, Bronchitis, Right ankle sprain Patient Disposition: Home, Self-Care Prescriptions: New albuterol sulfate 90 mcg/actuation HFA aerosol inhaler 1 inh inhalation QID PRN (Reason: shortness of breath or wheezing) Qty: 8.5 0RF albuterol sulfate 0.63 mg/3 mL solution for nebulization 0.63 mg inhalation QID PRN (Reason: shortness of breath or wheezing) Qty: 75 0RF azithromycin 250 mg tablet See Rx Instructions .ROUTE .COMPLEX Qty: 6 0RF Rx Instructions: take 500 mg today (day 1), then 250 mg for 4 days (days 2-5) codeine-guaifenesin [Guaifenesin AC] 10-100 mg/5 mL liquid 5 ml PO Q6H PRN (Reason: cold symptoms) Qty: 120 0RF prednisone 20 mg tablet 40 mg PO DAILY 5 Days Qty: 10 0RF No Action escitalopram oxalate 10 mg tablet 1 tab PO QAM albuterol sulfate [ProAir HFA] 90 mcg/actuation HFA aerosol inhaler 2 puff inhalation Q4-6H PRN (Reason: shortness of breath or wheezing) Qty: 8.5 0RF Referrals: Physician,Unknown J [Primary Care Provider] - 2 days (your pcp) Stand Alone Forms: Work/School Release
[2021-12-26 12:23] LABS: MANUAL DIFF FLAG NO
[2021-12-26 12:24] LABS: Basophils Absolute Auto 0.1 X10*3/uL (0.0-0.2); Basophils Percent Auto 0.5 % (0-2); Eosinophils Absolute Auto 1.4 X10*3/uL (0.0-0.4); Eosinophils Percent Auto 12.2 % (0-4); Hematocrit 47.1 % (42.0-52.0); Hemoglobin 16.6 g/dl (14.0-18.0); Imm Gran Abs Auto 0.03 X10*3/uL (0.00-0.03); Imm Gran Pct Auto 0.3 % (0.0-0.4); Lymphocytes Absolute Auto 3.1 X10*3/uL (1.2-4.9); Lymphocytes Percent Auto 27.9 % (20-40); Mean Corpuscular HGB Conc 35.2 g/dl (31.0-36.0); Mean Corpuscular Hemoglobin 28.2 pg (27.0-33.0); Mean Corpuscular Volume 80.1 fL (80.0-98.0); Mean Platelet Volume 9.9 fL (9.4-12.4); Monocytes Absolute Auto 0.8 X10*3/uL (0.1-1.2); Monocytes Percent Auto 6.9 % (2-11); Neutrophils Absolute Auto 5.8 x10*3/uL (2.0-8.3); Neutrophils Percent Auto 52.2 % (45-73); Platelet Count 252 X10*3/uL (160-400); Red Blood Count 5.88 X10*6/uL (4.60-5.80); Red Cell Distribution Width 13.2 % (11.0-16.0); White Blood Count 11.2 X10*3/uL (4.8-10.8)
[2021-12-26] MEDS: 0.9 % Sodium Chloride 1,000 ML 999 ML IVCONT (12:34)
[2021-12-26] MEDS: Ibuprofen 800 MG TABLET PO (12:34)
[2021-12-26] MEDS: Magnesium Sulfate/H2O 2 GM/50 ML PIGGYBACK IV (12:34)
[2021-12-26] MEDS: methylPREDNISolone Sod Succ 125 MG/2 ML VIAL IVPUSH (12:34)
[2021-12-26] MEDS: guaiFEN/Codeine SF 200/20/10ML 10 ML LIQUID PO (12:34)
[2021-12-26 12:46] LABS: Alanine Aminotransferase 31 U/L (0-40); Albumin Level 4.2 g/dL (3.5-5.0); Alkaline Phosphatase 98 U/L (39-117); Anion Gap 12 (12-20); Aspartate Amino Transferase 28 U/L (5-37); Bilirubin Total 1.1 mg/dL (0.0-1.0); Blood Urea Nitrogen 15 mg/dL (9-16); Calcium 9.1 mg/dL (8.4-10.2); Carbon Dioxide 25 mmol/L (22-29); Chloride 108 mmol/L (96-108); Creatinine Clr Calc Pharmacy 137.8; Estimated Glomerular Filt Rate > 60; Glucose Random 93 mg/dL (60-115); Magnesium 2.4 mg/dL (1.6-2.6); Potassium 3.3 mmol/L (3.3-5.1); Sodium 142 mmol/L (135-145); Total Protein 6.5 g/dL (6.5-8.0)
[2021-12-26 13:02] LABS: COVID-19 Test Negative (Negative); IDNOW Serial# 9DB6401D; Influenza A Negative (Negative); Influenza B2 Negative (Negative)
[2021-12-26 15:24] VITALS: O2SAT 96
== END 2021-12-26 15:29 | disposition home or self-care (01) ==
PROVIDERS: Physician Assistant Medical; Emergency Provider Emergency Medicine
DX: J45.901 Unspecified asthma with (acute) exacerbation (principal); S93.401A Sprain of unspecified ligament of right ankle, initial encounter; F17.210 Nicotine dependence, cigarettes, uncomplicated; Z79.899 Other long term (current) drug therapy; Z20.822 Contact with and (suspected) exposure to COVID-19; X50.1XXA Overexertion from prolonged static or awkward postures, initial encounter; Y93.9 Activity, unspecified; Y92.9 Unspecified place or not applicable; Y99.0 Civilian activity done for income or pay
CPT/HCPCS: 36415; 71045; 73610; 73630; 80053; 83735; 85025; 87502; 87635; 96365; 96366; 96375; 99283; 99284; J2930; J3475

== ENCOUNTER 2022-02-01 15:44 | Emergency (ER) | payer OTHER, SELFPAY ==
--- NOTE | ~2022-02-01 | XR_ITS ---
EXAMINATION: XR CHEST CLINICAL INFORMATION: Shortness of breath COMPARISON: 12/26/2021 TECHNIQUE: 2 views of the chest were obtained. FINDINGS: No significant abnormality is noted involving the heart, lungs, mediastinum, bony thorax or soft tissues. XR/XR chest 2V IMPRESSION: Unremarkable examination.
--- NOTE | 2022-02-01 15:55 | ED_ITS ---
HPI - SOB/Dyspnea General Chief Complaint: Dyspnea Stated Complaint: ASTHMA ATTACK,ON CPAP @ THIS TIME PER EMS Time Seen by Provider: 02/01/22 15:52 Source: patient Mode of arrival: ambulatory Limitations: no limitations History of Present Illness HPI Narrative: 21-year-old male presents emergency department with acute asthma exacerbation he is requesting have eosinophils checked patient was tripoding BiPAP as well as got some treatments for EMS patient is now home lungs are clear this is a chronic problem for him he did quit smoking 2 weeks ago he denies fevers chills nausea vomiting or diarrhea. Related Data Home Medications Medication Instructions Recorded Confirmed escitalopram oxalate 10 mg tablet 1 tab PO QAM 12/01/21 12/01/21 Previous Rx's Medication Instructions Recorded albuterol sulfate 90 mcg/actuation 2 puff inhalation Q4-6H PRN 07/06/21 aerosol inhaler (ProAir HFA) shortness of breath or wheezing #8.5 grams albuterol sulfate 0.63 mg/3 mL 0.63 mg (3 mL) inhalation QID PRN 12/26/21 solution for nebulization shortness of breath or wheezing #75 mL albuterol sulfate 90 mcg/actuation 1 inh inhalation QID PRN shortness 12/26/21 aerosol inhaler of breath or wheezing #8.5 grams azithromycin 250 mg tablet See Rx Instructions PO .COMPLEX #6 12/26/21 tabs codeine 10 mg-guaifenesin 100 mg/5 5 ml PO Q6H PRN cold symptoms #120 12/26/21 mL oral liquid (Guaifenesin AC) mL prednisone 20 mg tablet 40 mg PO DAILY rash 5 days #10 tabs 12/26/21 prednisone 20 mg tablet 60 mg PO DAILY Asthma 5 days #15 02/01/22 tabs Allergies Allergy/AdvReac Type Severity Reaction Status Date / Time amphetamine [From Adderall] Allergy Intermediate Chills Verified 04/29/21 02:26 dextroamphetamine Allergy Intermediate Chills Verified 04/29/21 02:26 [From Adderall] aripiprazole [From Abilify] AdvReac Severe Anaphylaxis Verified 04/29/21 02:25 Review of Systems Review of Systems: Review of systems: General: Patient denies any fever chills recent illness or falls Musculoskeletal: Denies back pain or body aches or other injuries HEENT: denies headache, runny nose, ear pain Respiratory: shortness of breath, cough Cardiovascular: no chest pain or palpitations : denies dysuria, frequency Abdomen: no nausea vomiting denies abdominal pain Extremities: no swelling, no pain Skin: no diaphoresis Yes all other systems are reviewed and are negative PMFSH Past Medical History Attestation statement: The following information was validated with the patient. Social History Social History Advance Directives: No Advance Directives Information Provided: No Physical Exam Vital Signs: Vital Signs: Last Vital Signs Pulse 80 02/01/22 16:15 Resp 12 02/01/22 16:15 BP 97/43 L 02/01/22 16:15 Pulse Ox 95 02/01/22 16:15 O2 Del Method 02/01/22 16:15 BMI result Body Mass Index 38.0 General: Well-appearing well-nourished in no signs of distress HEENT: Normocephalic atraumatic Neck: No signs of JVD, no masses no tenderness or lymphadenopathy Cardiovascular: Regular rate and rhythm Respiratory: Clear to auscultation bilaterally Abdomen: Soft nontender no masses Extremities: Normal pedal pulses no signs of edema Skin: Dry warm no rashes Back: No tenderness full ROM MDM - SOB/Dyspnea MDM Narrative Medical decision making narrative: Patient looks well of the patient for external check labs patient feeling much better after breathing treatment XR and labs are all unremarkable. I will send home with PCp follow up. Lab Data Result diagrams: 02/01/22 16:22 02/01/22 16:22 Labs: Lab Results 02/01/22 02/01/22 Range/Units 16:22 16:22 WBC 7.6 (4.8-10.8) X10*3/uL RBC 6.21 H (4.60-5.80) X10*6/uL Hgb 17.5 (14.0-18.0) g/dl Hct 50.6 (42.0-52.0) % MCV 81.5 (80.0-98.0) fL MCH 28.2 (27.0-33.0) pg MCHC 34.6 (31.0-36.0) g/dl RDW 13.5 (11.0-16.0) % Plt Count 252 (160-400) X10*3/uL MPV 9.6 (9.4-12.4) fL Immature Gran % (Auto) 0.3 (0.0-0.4) % Neut % (Auto) 46.8 (45-73) % Lymph % (Auto) 36.4 (20-40) % [place] % (Auto) 6.5 (2-11) % Eos % (Auto) 9.3 H (0-4) % Baso % (Auto) 0.7 (0-2) % Lymph # (Auto) 2.8 (1.2-4.9) X10*3/uL [place] # (Auto) 0.5 (0.1-1.2) X10*3/uL Eos # (Auto) 0.7 H (0.0-0.4) X10*3/uL Baso # (Auto) 0.1 (0.0-0.2) X10*3/uL Abs Immat Gran (auto) 0.02 (0.00-0.03) X10*3/uL Absolute Neuts (auto) 3.6 (2.0-8.3) x10*3/uL Absolute Nucleated RBC 0.000 (0.0-0.012) X10*3/uL Nucleated RBC % (auto) 0.0 (0.0-0.2) /100WBC Sodium 139 (135-145) mmol/L Potassium 3.9 (3.3-5.1) mmol/L Chloride 106 (96-108) mmol/L Carbon Dioxide 25 (22-29) mmol/L Anion Gap 12 (12-20) BUN 22 H (9-16) mg/dL Creatinine 0.99 (0.5-1.4) mg/dL Estim Creat Clear Calc 163.9 Estimated GFR > 60 Random Glucose 92 (60-115) mg/dL Calcium 8.8 (8.4-10.2) mg/dL Discharge Plan Discharge Clinical Impression: Asthma Patient Disposition: Home, Self-Care Additional Instructions: Please call to follow up with your doctor. If you have any other concerns please return to the ED. Prescriptions: New prednisone 20 mg tablet 60 mg PO DAILY 5 Days Qty: 15 0RF No Action escitalopram oxalate 10 mg tablet 1 tab PO QAM albuterol sulfate 90 mcg/actuation HFA aerosol inhaler 1 inh inhalation QID PRN (Reason: shortness of breath or wheezing) Qty: 8.5 0RF albuterol sulfate 0.63 mg/3 mL solution for nebulization 0.63 mg inhalation QID PRN (Reason: shortness of breath or wheezing) Qty: 75 0RF azithromycin 250 mg tablet See Rx Instructions .ROUTE .COMPLEX Qty: 6 0RF Rx Instructions: take 500 mg today (day 1), then 250 mg for 4 days (days 2-5) codeine-guaifenesin [Guaifenesin AC] 10-100 mg/5 mL liquid 5 ml PO Q6H PRN (Reason: cold symptoms) Qty: 120 0RF prednisone 20 mg tablet 40 mg PO DAILY 5 Days Qty: 10 0RF albuterol sulfate [ProAir HFA] 90 mcg/actuation HFA aerosol inhaler 2 puff inhalation Q4-6H PRN (Reason: shortness of breath or wheezing) Qty: 8.5 0RF
[2022-02-01] MEDS: Albuterol Sulfate (0.083%) 2.5 MG/3 ML VIAL.NEB 5 MG INHALE (15:56)
[2022-02-01 15:58] VITALS: PULSE 72; RESP 16; O2SAT 95
[2022-02-01 16:01] VITALS: BP 121/51; BP 136/80; PULSE 72; PULSE 79; RESP 20; O2SAT 95; O2SAT 98; BMI 38.0
[2022-02-01] MEDS: predniSONE 20 MG TABLET 60 MG PO (16:07)
[2022-02-01] MEDS: Magnesium Sulfate/H2O 2 GM/50 ML PIGGYBACK IV (16:08)
[2022-02-01 16:15] VITALS: BP 97/43; PULSE 80; RESP 12; O2SAT 95
[2022-02-01 16:30] LABS: MANUAL DIFF FLAG NO
[2022-02-01 16:36] LABS: Basophils Absolute Auto 0.1 X10*3/uL (0.0-0.2); Basophils Percent Auto 0.7 % (0-2); Eosinophils Absolute Auto 0.7 X10*3/uL (0.0-0.4); Eosinophils Percent Auto 9.3 % (0-4); Hematocrit 50.6 % (42.0-52.0); Hemoglobin 17.5 g/dl (14.0-18.0); Imm Gran Abs Auto 0.02 X10*3/uL (0.00-0.03); Imm Gran Pct Auto 0.3 % (0.0-0.4); Lymphocytes Absolute Auto 2.8 X10*3/uL (1.2-4.9); Lymphocytes Percent Auto 36.4 % (20-40); Mean Corpuscular HGB Conc 34.6 g/dl (31.0-36.0); Mean Corpuscular Hemoglobin 28.2 pg (27.0-33.0); Mean Corpuscular Volume 81.5 fL (80.0-98.0); Mean Platelet Volume 9.6 fL (9.4-12.4); Monocytes Absolute Auto 0.5 X10*3/uL (0.1-1.2); Monocytes Percent Auto 6.5 % (2-11); Neutrophils Absolute Auto 3.6 x10*3/uL (2.0-8.3); Neutrophils Percent Auto 46.8 % (45-73); Platelet Count 252 X10*3/uL (160-400); Red Blood Count 6.21 X10*6/uL (4.60-5.80); Red Cell Distribution Width 13.5 % (11.0-16.0); White Blood Count 7.6 X10*3/uL (4.8-10.8)
[2022-02-01 16:44] LABS: Anion Gap 12 (12-20); Blood Urea Nitrogen 22 mg/dL (9-16); Calcium 8.8 mg/dL (8.4-10.2); Carbon Dioxide 25 mmol/L (22-29); Chloride 106 mmol/L (96-108); Creatinine Clr Calc Pharmacy 163.9; Estimated Glomerular Filt Rate > 60; Glucose Random 92 mg/dL (60-115); Potassium 3.9 mmol/L (3.3-5.1); Sodium 139 mmol/L (135-145)
== END 2022-02-01 18:33 | disposition home or self-care (01) ==
PROVIDERS: Emergency Provider Student in an Organized Health Care Education/Training Program
DX: J45.909 Unspecified asthma, uncomplicated (principal); R06.02 Shortness of breath; Z79.899 Other long term (current) drug therapy
CPT/HCPCS: 36415; 71046; 80048; 85025; 94640; 94644; 96365; 96366; 99284; 99285; J3475

== ENCOUNTER 2022-04-03 18:30 | Emergency (ER) | payer OTHER, SELFPAY ==
[2022-04-03 18:33] VITALS: BP 147/113; PULSE 106; O2SAT 95
[2022-04-03 18:37] VITALS: BP 150/75; PULSE 87; RESP 22; TEMP 37; O2SAT 93; BMI 38.0
--- NOTE | 2022-04-03 18:43 | ED_ITS ---
HPI - Asthma General Chief Complaint: Asthma Stated Complaint: SOB X 1 DAY Time Seen by Provider: 04/03/22 18:43 Source: patient Mode of arrival: ambulatory Limitations: no limitations History of Present Illness HPI Narrative: Patient history of asthma poorly controlled noncompliant came here for increased shortness of breath for 2 hours 1 month been to ER multiple times same does not have ProAir inhaler using nebulizing treatment with poor response no fever no chills no chest pain patient received Solu-Medrol 125 mg by EMS EN route and DuoNeb treatment Related Data Home Medications Medication Instructions Recorded Confirmed escitalopram oxalate 10 mg tablet 1 tab PO QAM 12/01/21 12/01/21 Previous Rx's Medication Instructions Recorded albuterol sulfate 90 mcg/actuation 2 puff inhalation Q4-6H PRN 07/06/21 aerosol inhaler (ProAir HFA) shortness of breath or wheezing #8.5 grams albuterol sulfate 0.63 mg/3 mL 0.63 mg (3 mL) inhalation QID PRN 12/26/21 solution for nebulization shortness of breath or wheezing #75 mL albuterol sulfate 90 mcg/actuation 1 inh inhalation QID PRN shortness 12/26/21 aerosol inhaler of breath or wheezing #8.5 grams azithromycin 250 mg tablet See Rx Instructions PO .COMPLEX #6 12/26/21 tabs codeine 10 mg-guaifenesin 100 mg/5 5 ml PO Q6H PRN cold symptoms #120 12/26/21 mL oral liquid (Guaifenesin AC) mL prednisone 20 mg tablet 40 mg PO DAILY rash 5 days #10 tabs 12/26/21 prednisone 20 mg tablet 60 mg PO DAILY Asthma 5 days #15 02/01/22 tabs albuterol sulfate 90 mcg/actuation 2 puff inhalation Q4-6H PRN 04/03/22 aerosol inhaler (ProAir HFA) Wheezing #8.5 grams prednisone 20 mg tablet 40 mg PO DAILY #10 tabs 04/03/22 Allergies Allergy/AdvReac Type Severity Reaction Status Date / Time amphetamine [From Adderall] Allergy Intermediate Chills Verified 04/29/21 02:26 dextroamphetamine Allergy Intermediate Chills Verified 04/29/21 02:26 [From Adderall] aripiprazole [From Abilify] AdvReac Severe Anaphylaxis Verified 04/29/21 02:25 Review of Systems Review of Systems: Yes all other systems are reviewed and are negative [facility] Social History Social History Alcohol intake: never Patient Tobacco Use Status: Former Tobacco user Smoked in Last 30 Days: Yes Use of substances other than those prescribed or required for medical reasons: Yes Substance Use Type: Marijuana Advance Directives: No Advance Directives Information Provided: No Physical Exam Vital Signs: Vital Signs: Last Vital Signs Temp 98.6 F 04/03/22 18:37 Pulse 93 04/03/22 19:16 Resp 20 04/03/22 19:16 BP 118/66 04/03/22 19:16 Pulse Ox 99 04/03/22 19:16 O2 Del Method 04/03/22 19:16 BMI result Body Mass Index 38.0 MDM - Asthma MDM Narrative Medical decision making narrative: 1999 Patient with asthma does have cats at home likely the cause triggering the asthma attacks. Will discharge patient home on prednisone and albuterol advised patient to follow-up with PCP for allergy testing patient is saturating 97% at room air now lungs are much clear Differential Diagnosis Differential diagnosis: Likely Acute exacerbation and Status asthmaticus Medical Records Attestation: I reviewed the patient's medical records. Lab Data Attestation: I reviewed the patient's lab results. Result diagrams: 04/03/22 19:30 04/03/22 19:30 Labs: Lab Results 04/03/22 04/03/22 04/03/22 Range/Units 19:30 19:30 19:30 WBC 8.4 (4.8-10.8) X10*3/uL RBC 6.12 H (4.60-5.80) X10*6/uL Hgb 16.9 (14.0-18.0) g/dl Hct 49.6 (42.0-52.0) % MCV 81.0 (80.0-98.0) fL MCH 27.6 (27.0-33.0) pg MCHC 34.1 (31.0-36.0) g/dl RDW 13.1 (11.0-16.0) % Plt Count 270 (160-400) X10*3/uL MPV 10.2 (9.4-12.4) fL Immature Gran % (Auto) 0.1 (0.0-0.4) % Neut % (Auto) 56.3 (45-73) % Lymph % (Auto) 27.5 (20-40) % [place] % (Auto) 4.6 (2-11) % Eos % (Auto) 10.7 H (0-4) % Baso % (Auto) 0.8 (0-2) % Lymph # (Auto) 2.3 (1.2-4.9) X10*3/uL [place] # (Auto) 0.4 (0.1-1.2) X10*3/uL Eos # (Auto) 0.9 H (0.0-0.4) X10*3/uL Baso # (Auto) 0.1 (0.0-0.2) X10*3/uL Abs Immat Gran (auto) 0.01 (0.00-0.03) X10*3/uL Absolute Neuts (auto) 4.7 (2.0-8.3) x10*3/uL Absolute Nucleated RBC 0.000 (0.0-0.012) X10*3/uL Nucleated RBC % (auto) 0.0 (0.0-0.2) /100WBC Sodium 140 (135-145) mmol/L Potassium 4.0 (3.3-5.1) mmol/L Chloride 107 (96-108) mmol/L Carbon Dioxide 22 (22-29) mmol/L Anion Gap 15 (12-20) BUN 13 (9-16) mg/dL Creatinine 0.89 (0.5-1.4) mg/dL Estim Creat Clear Calc 182.3 Estimated GFR > 60 Random Glucose 107 (60-115) mg/dL Calcium 9.0 (8.4-10.2) mg/dL COVID-19 (VADIM) Negative (Negative) COVID-19 Clin Com See Note Discharge Plan Discharge Clinical Impression: Asthma with acute exacerbation Patient Disposition: Home, Self-Care Instructions: Asthma (ED) Additional Instructions: Use albuterol inhaler 2 puffs every 4-6 hours as advised Prednisone as prescribed Follow-up with PCP for further evaluation Prescriptions: New prednisone 20 mg tablet 40 mg PO DAILY Qty: 10 0RF albuterol sulfate [ProAir HFA] 90 mcg/actuation HFA aerosol inhaler 2 puff inhalation Q4-6H PRN (Reason: Wheezing) Qty: 8.5 0RF No Action escitalopram oxalate 10 mg tablet 1 tab PO QAM albuterol sulfate 90 mcg/actuation HFA aerosol inhaler 1 inh inhalation QID PRN (Reason: shortness of breath or wheezing) Qty: 8.5 0RF albuterol sulfate 0.63 mg/3 mL solution for nebulization 0.63 mg inhalation QID PRN (Reason: shortness of breath or wheezing) Qty: 75 0RF azithromycin 250 mg tablet See Rx Instructions .ROUTE .COMPLEX Qty: 6 0RF Rx Instructions: take 500 mg today (day 1), then 250 mg for 4 days (days 2-5) codeine-guaifenesin [Guaifenesin AC] 10-100 mg/5 mL liquid 5 ml PO Q6H PRN (Reason: cold symptoms) Qty: 120 0RF prednisone 20 mg tablet 40 mg PO DAILY 5 Days Qty: 10 0RF prednisone 20 mg tablet 60 mg PO DAILY 5 Days Qty: 15 0RF albuterol sulfate [ProAir HFA] 90 mcg/actuation HFA aerosol inhaler 2 puff inhalation Q4-6H PRN (Reason: shortness of breath or wheezing) Qty: 8.5 0RF
[2022-04-03] MEDS: Magnesium Sulfate/H2O 2 GM/50 ML PIGGYBACK IV (18:49)
[2022-04-03] MEDS: 0.9 % Sodium Chloride 1,000 ML 999 ML IV (18:49)
[2022-04-03] MEDS: Albuterol Sulfate 5 MG, Albuterol/Iprat 2.5/0.5MG 3 ML 3 ML INHALE (19:00)
[2022-04-03 19:01] VITALS: PULSE 88; RESP 16; O2SAT 96
[2022-04-03 19:16] VITALS: BP 118/66; PULSE 93; RESP 20; O2SAT 99
--- NOTE | 2022-04-03 19:23 | PC.NURSE ---
pt a&ox3, vss, NaCl running, 18G left AC placed via EMS, tech at bedside drawing blood. no new orders at this time.
[2022-04-03 19:39] LABS: MANUAL DIFF FLAG NO
[2022-04-03 19:40] LABS: Basophils Absolute Auto 0.1 X10*3/uL (0.0-0.2); Basophils Percent Auto 0.8 % (0-2); Eosinophils Absolute Auto 0.9 X10*3/uL (0.0-0.4); Eosinophils Percent Auto 10.7 % (0-4); Hematocrit 49.6 % (42.0-52.0); Hemoglobin 16.9 g/dl (14.0-18.0); Imm Gran Abs Auto 0.01 X10*3/uL (0.00-0.03); Imm Gran Pct Auto 0.1 % (0.0-0.4); Lymphocytes Absolute Auto 2.3 X10*3/uL (1.2-4.9); Lymphocytes Percent Auto 27.5 % (20-40); Mean Corpuscular HGB Conc 34.1 g/dl (31.0-36.0); Mean Corpuscular Hemoglobin 27.6 pg (27.0-33.0); Mean Platelet Volume 10.2 fL (9.4-12.4); Monocytes Absolute Auto 0.4 X10*3/uL (0.1-1.2); Monocytes Percent Auto 4.6 % (2-11); Neutrophils Absolute Auto 4.7 x10*3/uL (2.0-8.3); Neutrophils Percent Auto 56.3 % (45-73); Platelet Count 270 X10*3/uL (160-400); Red Blood Count 6.12 X10*6/uL (4.60-5.80); Red Cell Distribution Width 13.1 % (11.0-16.0); White Blood Count 8.4 X10*3/uL (4.8-10.8)
[2022-04-03 19:53] LABS: Anion Gap 15 (12-20); Blood Urea Nitrogen 13 mg/dL (9-16); Carbon Dioxide 22 mmol/L (22-29); Chloride 107 mmol/L (96-108); Creatinine Clr Calc Pharmacy 182.3; Estimated Glomerular Filt Rate > 60; Glucose Random 107 mg/dL (60-115); Sodium 140 mmol/L (135-145)
[2022-04-03 19:55] LABS: COVID-19 Test Negative (Negative)
== END 2022-04-03 20:27 | disposition home or self-care (01) ==
PROVIDERS: Emergency Provider Internal Medicine; PCP Internal Medicine
DX: J45.901 Unspecified asthma with (acute) exacerbation (principal); R06.02 Shortness of breath; Z20.822 Contact with and (suspected) exposure to COVID-19; F12.90 Cannabis use, unspecified, uncomplicated; Z87.891 Personal history of nicotine dependence
CPT/HCPCS: 36415; 80048; 85025; 87635; 94640; 96365; 99284; 99285; J3475

== ENCOUNTER 2022-10-18 13:41 | Emergency (ER) | payer OTHER, SELFPAY ==
--- NOTE | 2022-10-18 13:47 | ED.URI ---
HPI - URI/Sore Throat General Chief Complaint: General Medical <JUNO Nunez Last Filed: 10/18/22 13:49> Stated Complaint: Flu like symptoms x 3 days per EMS <JUNO Nunez Last Filed: 10/18/22 13:49> Time Seen by Provider: 10/18/22 15:46 <JUNO Nunez Last Filed: 10/18/22 13:49> Source: patient and EMS <JUNO Villa Last Filed: 10/18/22 17:21> Mode of arrival: EMS <JUNO Villa Last Filed: 10/18/22 17:21> Limitations: no limitations <JUNO Villa Last Filed: 10/18/22 17:21> History of Present Illness HPI Narrative: Patient is a 22 year old assigned male at with a history of asthma presenting to the emergency department today with a sore throat and cough. Patient states that over the last couple days he has had a sore throat and a cough. Patient denies any dizziness, lightheadedness, abdominal pain, nausea, vomiting, fever, chills, blurry vision, double vision, loss of vision, chest pain, difficulty breathing, shortness of breath, back pain, night sweats, pain with urination, increased urinary frequency, increased urinary urgency, blood in his urine or stool, syncope or a near syncopal episode, recent trauma or falls, bowel incontinence, bladder incontinence, bowel retention, bladder retention, or any other complaints at this time. <JUNO Villa Last Filed: 10/18/22 17:21> MD elicited complaint: cough and sore throat <JUNO Villa Last Filed: 10/18/22 17:21> Onset (ago): day(s) <JUNO Villa Last Filed: 10/18/22 17:21> Consistency: constant <JUNO Villa Last Filed: 10/18/22 17:21> Severity: mild <JUNO Villa Last Filed: 10/18/22 17:21> Able to tolerate fluids by mouth: Yes <JUNO Villa Last Filed: 10/18/22 17:21> Exacerbating factors: nothing <JUNO Villa - Last Filed: 10/18/22 17:21> Relieving factors: nothing <JUNO Villa - Last Filed: 10/18/22 17:21> Associated symptoms: sore throat and cough <JUNO Villa - Last Filed: 10/18/22 17:21> Treatments prior to arrival: ibuprofen <JUNO Villa - Last Filed: 10/18/22 17:21> Related Data Home Medications: Home Medications Medication Instructions Recorded Confirmed escitalopram oxalate 10 mg tablet 1 tab PO QAM 12/01/21 12/01/21 Previous Rx's Medication Instructions Recorded albuterol sulfate 90 mcg/actuation 2 puff inhalation Q4-6H PRN 07/06/21 aerosol inhaler (ProAir HFA) shortness of breath or wheezing #8.5 grams albuterol sulfate 0.63 mg/3 mL 0.63 mg (3 mL) inhalation QID PRN 12/26/21 solution for nebulization shortness of breath or wheezing #75 mL albuterol sulfate 90 mcg/actuation 1 inh inhalation QID PRN shortness 12/26/21 aerosol inhaler of breath or wheezing #8.5 grams azithromycin 250 mg tablet See Rx Instructions PO .COMPLEX #6 12/26/21 tabs codeine 10 mg-guaifenesin 100 mg/5 5 ml PO Q6H PRN cold symptoms #120 12/26/21 mL oral liquid (Guaifenesin AC) mL prednisone 20 mg tablet 40 mg PO DAILY rash 5 days #10 tabs 12/26/21 prednisone 20 mg tablet 60 mg PO DAILY Asthma 5 days #15 02/01/22 tabs albuterol sulfate 90 mcg/actuation 2 puff inhalation Q4-6H PRN 04/03/22 aerosol inhaler (ProAir HFA) Wheezing #8.5 grams prednisone 20 mg tablet 40 mg PO DAILY #10 tabs 04/03/22 acetaminophen 500 mg capsule 500 mg PO Q4-6H PRN fever #30 caps 10/18/22 ibuprofen 800 mg tablet 800 mg PO Q6H PRN pain #30 tabs 10/18/22 penicillin V potassium 500 mg 500 mg PO BID 10 days #20 tabs 10/18/22 tablet <JUNO Nunez - Last Filed: 10/18/22 13:49> Allergies/Adverse Reactions: Allergies Allergy/AdvReac Type Severity Reaction Status Date / Time amphetamine [From Adderall] Allergy Intermediate Chills Verified 04/29/21 02:26 dextroamphetamine Allergy Intermediate Chills Verified 04/29/21 02:26 [From Adderall] aripiprazole [From Abilify] AdvReac Severe Anaphylaxis Verified 04/29/21 02:25 <JUNO Nunez Last Filed: 10/18/22 13:49> Review of Systems Constitutional: Constitutional: Reports no additional constitutional complaints, Denies chills, Denies fever(s) and Denies night sweats <JUNO Villa Last Filed: 10/18/22 17:21> Eyes: Eyes: Reports no additional eye complaints, Denies blurry vision, Denies change in vision, Denies diplopia, Denies eye discharge, Denies loss of vision and Denies eye pain <JUNO Villa Last Filed: 10/18/22 17:21> ENT: Denies dizziness and Reports sore throat <JUNO Villa Last Filed: 10/18/22 17:21> Cardiovascular: Cardiovascular: Reports no additional cardiovascular complaints, Denies chest pain, Denies lightheadedness, Denies Loss of Consciousness and Denies dyspnea <JUNO Villa Last Filed: 10/18/22 17:21> Respiratory: Respiratory: Reports no additional respiratory complaints, Reports cough and Denies dyspnea <JUNO Villa Last Filed: 10/18/22 17:21> Gastrointestinal: Gastrointestinal: Reports no additional gastrointestinal complaints, Denies abdominal pain, Denies melena, Denies hematochezia, Denies change in bowel habits and Denies change in stool character <JUNO Villa Last Filed: 10/18/22 17:21> Genitourinary: Genitourinary: Reports no additional male genitourinary complaints, Denies hematuria, Denies oliguria, Denies difficulty urinating, Denies dysuria, Denies urinary frequency, Denies urinary hesitancy, Denies urinary incontinence and Denies urinary urgency <JUNO Villa Last Filed: 10/18/22 17:21> Musculoskeletal: Musculoskeletal: Reports no additional musculoskeletal complaints, Denies numbness and Denies tingling <JUNO Villa - Last Filed: 10/18/22 17:21> Neurologic: Denies dizziness, Denies loss of vision, Denies numbness and Denies tingling <JUNO Villa - Last Filed: 10/18/22 17:21> Psychiatric: Psychiatric: Reports no additional psychiatric complaints <JUNO Villa - Last Filed: 10/18/22 17:21> Endocrine: Endocrine: Reports no additional endocrine complaints <JUNO Villa - Last Filed: 10/18/22 17:21> Hematologic/Lymphatic: Hematologic/Lymphatic: Reports no additional hematologic/lymphatic complaints <JUNO Villa - Last Filed: 10/18/22 17:21> Allergic/Immunologic: Allergic/Immunologic: Reports no additional allergic/immunologic complaints <JUNO Villa - Last Filed: 10/18/22 17:21> PMFSH Past Medical History Attestation statement: The following information was validated with the patient. <JUNO Villa - Last Filed: 10/18/22 17:21> Source: old records reviewed and nursing notes reviewed <JUNO Villa - Last Filed: 10/18/22 17:21> Social History Social History: Social History Alcohol intake: never Patient Tobacco Use Status: Former Tobacco user Substance Use Type: Marijuana Advance Directives: No Advance Directives Information Provided: No <JUNO Nunez - Last Filed: 10/18/22 13:49> Physical Exam Vital Signs: Vital Signs: Last Vital Signs Temp 99.5 F 10/18/22 16:00 Pulse 96 10/18/22 16:11 Resp 22 H 10/18/22 16:11 BP 105/53 L 10/18/22 16:00 Pulse Ox 98 10/18/22 16:00 O2 Del Method Room Air 10/18/22 16:00 BMI result Body Mass Index 37.5 <JUNO Nunez - Last Filed: 10/18/22 13:49> Vital Signs: Last Vital Signs Temp 99.5 F 10/18/22 16:00 Pulse 96 10/18/22 16:11 Resp 22 H 10/18/22 16:11 BP 105/53 L 10/18/22 16:00 Pulse Ox 98 10/18/22 16:00 O2 Del Method Room Air 10/18/22 16:00 BMI result Body Mass Index 37.5 <JUNO Villa - Last Filed: 10/18/22 17:21> Const: General: cooperative, no acute distress, alert and awake <JUNO Villa - Last Filed: 10/18/22 17:21> Nutritional Appearance: well nourished <JUNO Villa - Last Filed: 10/18/22 17:21> Orientation/consciousness: patient oriented x3 <JUNO Villa - Last Filed: 10/18/22 17:21> Limitations: no limitations <JUNO Villa - Last Filed: 10/18/22 17:21> HEENT: Head: Yes normal to inspection and Yes atraumatic <JUNO Villa - Last Filed: 10/18/22 17:21> Ears: hearing grossly normal bilaterally and external ears normal <JUNO Villa - Last Filed: 10/18/22 17:21> General nose exam: Normal external nose present, no nasal discharge noted and no epistaxis <JUNO Villa - Last Filed: 10/18/22 17:21> Face and sinus: Yes normal facial exam, No abrasion and No laceration <JUNO Villa - Last Filed: 10/18/22 17:21> Mouth: Normal oral and palatal mucosa present, no drooling and no muffled voice <JUNO Villa - Last Filed: 10/18/22 17:21> Throat: Yes posterior oropharynx abnormal (erythema) <JUNO Villa - Last Filed: 10/18/22 17:21> Eyes: General: appearance normal, both eyes and all related structures <JUNO Villa - Last Filed: 10/18/22 17:21> Periorbital: periorbital findings normal <JUNO Villa - Last Filed: 10/18/22 17:21> Eyelids: Yes eyelids normal <JUNO Villa - Last Filed: 10/18/22 17:21> Conjunctivae: conjunctivae normal <Georgina Negrete PA - Last Filed: 10/18/22 17:21> Pupils: Equal, round and reactive pupils present <Georgina Negrete PA - Last Filed: 10/18/22 17:21> EOM: EOMs intact bilaterally <Georgina Negrete PA - Last Filed: 10/18/22 17:21> Neck: Neck: Yes normal visual inspection, Yes full ROM and Yes no lymphadenopathy <Georgina Negrete PA - Last Filed: 10/18/22 17:21> Chest: Chest palpation & inspection: normal inspection of the chest <Georgina Negrete PA - Last Filed: 10/18/22 17:21> Resp: Effort & Inspection: normal respiratory effort and able to speak in complete sentences <Georgina Negrete PA - Last Filed: 10/18/22 17:21> Auscultation: clear to auscultation bilaterally <Georgina Negrete PA - Last Filed: 10/18/22 17:21> GI: Inspection: Yes normal to inspection <Georgina Negrete PA - Last Filed: 10/18/22 17:21> Neuro: General: patient oriented x3 and moves all extremities <Georgina Negrete PA - Last Filed: 10/18/22 17:21> Cranial nerves: Yes Equal, round and reactive pupils present <Georgina Negrete PA - Last Filed: 10/18/22 17:21> Cognition (Neuro): normal cognition <Georgina Negrete PA - Last Filed: 10/18/22 17:21> Motor exam (neuro): 5/5 motor strength present throughout <Georgina Negrete PA - Last Filed: 10/18/22 17:21> Sensory Exam: Normal double simultaneous stimulation for sensation <Georgina Negrete PA - Last Filed: 10/18/22 17:21> Coordination: jgelag-ju-yefa test normal <Georgina Negrete PA - Last Filed: 10/18/22 17:21> Extrem: General: Yes normal to inspection, Yes full ROM and Yes capillary refill normal <Georgina Negrete PA - Last Filed: 10/18/22 17:21> Psych: Appearance: grossly normal <Georgina Aritashell PA - Last Filed: 10/18/22 17:21> Mental Status: mental status grossly normal <JUNO Villa - Last Filed: 10/18/22 17:21> Affect: normal affect <JUNO Villa - Last Filed: 10/18/22 17:21> Attitude: cooperative <JUNO Villa - Last Filed: 10/18/22 17:21> Thought process: Normal thought process present <JUNO Villa Last Filed: 10/18/22 17:21> Thought content: Normal thought content present <JUNO Villa - Last Filed: 10/18/22 17:21> Insight: Good insight present (Psych) <JUNO Villa - Last Filed: 10/18/22 17:21> Course Course Course Narrative: RME - 22 yo male presenting with flu like symptoms for the last 3 days. When coughing today he thought he tasted blood so he called 911. He has had a sore throat, fatigue, cough. No respiratory distress and no oral bleeding for EMS. VSS for EMS. Plan: COVID, Flu, Strep swabs <JUNO Nunez - Last Filed: 10/18/22 13:49> Medications Administered Discontinued Medications Generic Name Dose Route Start Last Admin Trade Name Freq PRN Reason Stop Dose Admin Acetaminophen 975 mg 10/18/22 14:57 10/18/22 15:54 Acetaminophen 325 Mg Tablet PO 10/18/22 14:58 975 mg ONCE ONE Administration Albuterol Sulfate 5 mg 10/18/22 15:54 10/18/22 16:10 Albuterol Sulfate (0.083%) 2.5 Mg/3 Ml Vial.Neb INHALE 10/18/22 15:55 5 mg ONCE ONE Administration <JUNO Nunez - Last Filed: 10/18/22 13:49> Medications Administered Discontinued Medications Generic Name Dose Route Start Last Admin Trade Name Freq PRN Reason Stop Dose Admin Acetaminophen 975 mg 10/18/22 14:57 10/18/22 15:54 Acetaminophen 325 Mg Tablet PO 10/18/22 14:58 975 mg ONCE ONE Administration Albuterol Sulfate 5 mg 10/18/22 15:54 10/18/22 16:10 Albuterol Sulfate (0.083%) 2.5 Mg/3 Ml Vial.Neb INHALE 10/18/22 15:55 5 mg ONCE ONE Administration <JUNO Villa - Last Filed: 10/18/22 17:21> Medical Decision Making Medical Decision Making [facility] Narrative: Patient is a 22 year old assigned male at with a history of asthma presenting to the emergency department today with a sore throat and a cough. Patient's physical exam showed an erythematous posterior oropharynx. Patient's COVID/RSV/Influenza/Strep swabs were negative. I explained my physical exam findings as well as all test results to the patient. I answered all questions asked by the patient. I stressed the importance of the patient taking his medication as prescribed. I stressed the importance of the patient following up with his primary care provider. I stressed the importance of the patient returning to the emergency department immediately if his symptoms were to worsen or if he were to develop any dizziness, shortness of breath, difficulty breathing, chest pain, blurry vision, loss of vision, nausea, vomiting, abdominal pain, fever, chills, back pain, or any other complaints. Patient verbalized agreement and understanding with this treatment plan and discharge. <JUNO Villa - Last Filed: 10/18/22 17:21> Differential Diagnosis Differential Diagnoses: The differential diagnosis associated with the presentation includes <JUNO Villa - Last Filed: 10/18/22 17:21> URI <JUNO Villa - Last Filed: 10/18/22 17:21> Lab Data [facility] Lab Attestation statement: I reviewed the patient's lab results. <JUNO Villa - Last Filed: 10/18/22 17:21> Labs: Lab Results 10/18/22 10/18/22 10/18/22 Range/Units 14:42 14:42 14:42 COVID-19 (VADIM) Negative (Negative) COVID-19 Clin Com See Note Influenza Type A (LUCIA) Negative (Negative) Influenza Type B (LUCIA) Negative (Negative) Influenza A & B Note See Note S. pyogenes GrpA LUCIA Negative (Negative) <JUNO Nunez - Last Filed: 10/18/22 13:49> Lab Results 10/18/22 10/18/22 10/18/22 Range/Units 14:42 14:42 14:42 COVID-19 (VADIM) Negative (Negative) COVID-19 Clin Com See Note Influenza Type A (LUCIA) Negative (Negative) Influenza Type B (LUCIA) Negative (Negative) Influenza A & B Note See Note S. pyogenes GrpA LUCIA Negative (Negative) <JUNO Villa - Last Filed: 10/18/22 17:21> Discharge Plan Discharge Clinical Impression: Upper respiratory infection <JUNO Nunez - Last Filed: 10/18/22 13:49> Patient Disposition: Home, Self-Care <JUNO Nunez - Last Filed: 10/18/22 13:49> Instructions: Upper Respiratory Infection (DC) <JUNO Nunez - Last Filed: 10/18/22 13:49> Additional Instructions: Follow up with your primary care provider. Return to the emergency department immediately if your symptoms worsen or if you develop any dizziness, shortness of breath, difficulty breathing, chest pain, blurry vision, loss of vision, nausea, vomiting, abdominal pain, fever, chills, back pain, or any other complaints. <JUNO Nunez - Last Filed: 10/18/22 13:49> Prescriptions: New penicillin V potassium 500 mg tablet 500 mg PO BID 10 Days Qty: 20 0RF acetaminophen 500 mg capsule 500 mg PO Q4-6H PRN (Reason: fever) Qty: 30 0RF ibuprofen 800 mg tablet 800 mg PO Q6H PRN (Reason: pain) Qty: 30 0RF No Action escitalopram oxalate 10 mg tablet 1 tab PO QAM albuterol sulfate 90 mcg/actuation HFA aerosol inhaler 1 inh inhalation QID PRN (Reason: shortness of breath or wheezing) Qty: 8.5 0RF albuterol sulfate 0.63 mg/3 mL solution for nebulization 0.63 mg inhalation QID PRN (Reason: shortness of breath or wheezing) Qty: 75 0RF azithromycin 250 mg tablet See Rx Instructions .ROUTE .COMPLEX Qty: 6 0RF Rx Instructions: take 500 mg today (day 1), then 250 mg for 4 days (days 2-5) codeine-guaifenesin [Guaifenesin AC] 10-100 mg/5 mL liquid 5 ml PO Q6H PRN (Reason: cold symptoms) Qty: 120 0RF prednisone 20 mg tablet 40 mg PO DAILY 5 Days Qty: 10 0RF prednisone 20 mg tablet 60 mg PO DAILY 5 Days Qty: 15 0RF prednisone 20 mg tablet 40 mg PO DAILY Qty: 10 0RF albuterol sulfate [ProAir HFA] 90 mcg/actuation HFA aerosol inhaler 2 puff inhalation Q4-6H PRN (Reason: Wheezing) Qty: 8.5 0RF albuterol sulfate [ProAir HFA] 90 mcg/actuation HFA aerosol inhaler 2 puff inhalation Q4-6H PRN (Reason: shortness of breath or wheezing) Qty: 8.5 0RF <JUNO Nunez - Last Filed: 10/18/22 13:49> Referrals: Ramon Godwin MD [Primary Care Provider] - <JUNO Nunez - Last Filed: 10/18/22 13:49> Stand Alone Forms: Work/School Release <JUNO Nunez - Last Filed: 10/18/22 13:49> Interventions: ED Discharge Assessment Last Done: 10/18/22 16:59 <JUNO Nunez - Last Filed: 10/18/22 13:49> Discharge Date/Time: 10/18/22 17:01 <JUNO Nunez - Last Filed: 10/18/22 13:49> Print Language: Faroese <JUNO Nunez - Last Filed: 10/18/22 13:49>
[2022-10-18 14:37] VITALS: BP 131/67; BP 134/82; PULSE 111; PULSE 112; RESP 18; TEMP 38.6; O2SAT 98; O2SAT 99; BMI 37.5
[2022-10-18 15:03] LABS: IDNOW Serial# 08D9AD1C; IDNOW Serial# 9DB6401D; Influenza A Negative (Negative); Influenza B2 Negative (Negative); Strep A Nucleic Acid Negative (Negative)
[2022-10-18 15:04] LABS: COVID-19 Test Negative (Negative); IDNOW Serial# BCCEAD1C
[2022-10-18] MEDS: Acetaminophen 325 MG TABLET 975 MG PO (15:54)
[2022-10-18 16:00] VITALS: BP 105/53; PULSE 99; RESP 18; TEMP 37.5; O2SAT 98
[2022-10-18] MEDS: Albuterol Sulfate (0.083%) 2.5 MG/3 ML VIAL.NEB 5 MG INHALE (16:10)
[2022-10-18 16:11] VITALS: PULSE 96; RESP 22; O2SAT 100
== END 2022-10-18 17:01 | disposition home or self-care (01) ==
PROVIDERS: Physician Assistant; Emergency Provider Emergency Medicine Emergency Medical Services; PCP Internal Medicine
DX: J06.9 Acute upper respiratory infection, unspecified (principal); J02.9 Acute pharyngitis, unspecified; Z20.822 Contact with and (suspected) exposure to COVID-19
CPT/HCPCS: 87502; 87635; 87651; 99284

== ENCOUNTER 2022-10-20 22:01 | Emergency (ER) | payer OTHER, SELFPAY ==
--- NOTE | ~2022-10-20 | XR_ITS ---
EXAMINATION: XR CHEST CLINICAL INFORMATION: Cough. COMPARISON: Chest radiograph 02/01/2022. TECHNIQUE: 2 views of the chest were obtained. FINDINGS: No significant abnormality is noted involving the heart, lungs, mediastinum, bony thorax or soft tissues. XR/XR chest 2V IMPRESSION: Unremarkable examination.
[2022-10-20 22:18] VITALS: BP 131/79; PULSE 110; RESP 18; TEMP 37.4; O2SAT 96; BMI 37.5
[2022-10-20] MEDS: Acetaminophen 325 MG TABLET 975 MG PO (23:34)
[2022-10-20 23:46] LABS: Monotest Negative (Negative)
[2022-10-20 23:58] LABS: COVID-19 Test Negative (Negative); IDNOW Serial# 08D9AD1C; IDNOW Serial# BCCEAD1C; Strep A Nucleic Acid Negative (Negative)
--- NOTE | 2022-10-21 00:05 | ED.GENADULT ---
HPI - General Adult General Chief complaint: General Medical Stated complaint: shaking Time Seen by Provider: 10/21/22 00:04 Source: patient, RN notes reviewed and old records reviewed Mode of arrival: ambulatory Limitations: no limitations History of Present Illness HPI narrative: 22-year-old male presents for evaluation of ?shaking. ? Patient reports that every day for last 3 days he has had episodes of ?shaking and I cannot stop. ? He reports that he does not have a temperature of time because he checked his temperature and it was only as high as 97 He reports that he is being treated for an upper respiratory infection with azithromycin. He has taken 3 doses He was seen here 3 days ago and was prescribed penicillin for URI but did not take it because ?my mother is allergic to penicillin. Patient denies any shortness of breath, abdominal pain, nausea Related Data Home Medications Medication Instructions Recorded Confirmed escitalopram oxalate 10 mg tablet 1 tab PO QAM 12/01/21 12/01/21 Previous Rx's Medication Instructions Recorded albuterol sulfate 90 mcg/actuation 2 puff inhalation Q4-6H PRN 07/06/21 aerosol inhaler (ProAir HFA) shortness of breath or wheezing #8.5 grams albuterol sulfate 0.63 mg/3 mL 0.63 mg (3 mL) inhalation QID PRN 12/26/21 solution for nebulization shortness of breath or wheezing #75 mL albuterol sulfate 90 mcg/actuation 1 inh inhalation QID PRN shortness 12/26/21 aerosol inhaler of breath or wheezing #8.5 grams azithromycin 250 mg tablet See Rx Instructions PO .COMPLEX #6 12/26/21 tabs codeine 10 mg-guaifenesin 100 mg/5 5 ml PO Q6H PRN cold symptoms #120 12/26/21 mL oral liquid (Guaifenesin AC) mL prednisone 20 mg tablet 40 mg PO DAILY rash 5 days #10 tabs 12/26/21 prednisone 20 mg tablet 60 mg PO DAILY Asthma 5 days #15 02/01/22 tabs albuterol sulfate 90 mcg/actuation 2 puff inhalation Q4-6H PRN 04/03/22 aerosol inhaler (ProAir HFA) Wheezing #8.5 grams prednisone 20 mg tablet 40 mg PO DAILY #10 tabs 04/03/22 acetaminophen 500 mg capsule 500 mg PO Q4-6H PRN fever #30 caps 10/18/22 ibuprofen 800 mg tablet 800 mg PO Q6H PRN pain #30 tabs 10/18/22 penicillin V potassium 500 mg 500 mg PO BID 10 days #20 tabs 10/18/22 tablet azithromycin 250 mg tablet 250 mg PO DAILY #6 tabs 10/19/22 (Zithromax) Allergies Allergy/AdvReac Type Severity Reaction Status Date / Time amphetamine [From Adderall] Allergy Intermediate Chills Verified 10/20/22 22:24 dextroamphetamine Allergy Intermediate Chills Verified 10/20/22 22:24 [From Adderall] aripiprazole [From Abilify] AdvReac Severe Anaphylaxis Verified 10/20/22 22:24 Review of Systems Constitutional: Constitutional: Reports as per HPI, Reports chills, Reports fatigue, Denies fever(s) and Denies headache(s) ENT: Denies headache(s), Denies nose pain and Reports sore throat Cardiovascular: Cardiovascular: Denies chest pain and Denies dyspnea Respiratory: Respiratory: Reports cough, Reports hemoptysis and Denies dyspnea Gastrointestinal: Gastrointestinal: Denies abdominal pain, Denies constipation, Reports nausea and Reports vomiting Genitourinary: Genitourinary: Denies difficulty urinating and Denies dysuria Neurologic: Denies headache(s) and Denies focal weakness Endocrine: Endocrine: Reports fatigue PMFSH Social History Social History Alcohol intake: never Patient Tobacco Use Status: Former Tobacco user Substance Use Type: Marijuana Advance Directives: No Advance Directives Information Provided: Yes Physical Exam ED Vital Signs: Vital Signs - 24 hr 10/20/22 22:18 Temperature 99.4 F Pulse Rate 110 H Respiratory Rate 18 Blood Pressure 131/79 Pulse Oximetry 96 Oxygen Delivery Method Room Air BMI result Body Mass Index 37.5 Const General: healthy appearing, comfortable, no acute distress, alert and awake Nutritional Appearance: well nourished Orientation/consciousness: patient oriented x3 HENMT Head: Yes normocephalic and Yes atraumatic Throat: No posterior oropharynx normal (Posterior pharynx erythematous with tonsillar hypertrophy, no exudates) Eyes Eyelids: Yes eyelids normal Conjunctivae: conjunctivae normal Sclerae: sclerae normal Corneas: corneas normal Pupils: Equal, round and reactive pupils present EOM: EOMs intact bilaterally Neck Neck: Yes full ROM Resp Effort & Inspection: normal respiratory effort, able to speak in complete sentences, no audible wheezes and not labored Auscultation: clear to auscultation bilaterally Cardio Rate: regular rate Rhythm: regular rhythm GI Inspection: No distended Palpation (GI): Soft to palpation, not firm, nontender, no guarding and not rigid Auscultation: normoactive bowel sounds Skin General skin exam: no rashes or lesions noted and elasticity normal Neuro General: patient oriented x3 Cranial nerves: Yes CN's II-XII intact bilaterally, Yes Equal, round and reactive pupils present and Yes Bilaterally intact EOM present Cognition (Neuro): normal cognition Extrem Other: Moving all extremities well without any obvious deformities Medications Administered Discontinued Medications Generic Name Dose Route Start Last Admin Trade Name Freq PRN Reason Stop Dose Admin Acetaminophen 975 mg 10/20/22 22:48 10/20/22 23:34 Acetaminophen 325 Mg Tablet PO 10/20/22 22:49 975 mg ONCE ONE Administration Ibuprofen 400 mg 10/20/22 22:48 10/20/22 23:35 Ibuprofen 400 Mg Tablet PO 10/20/22 22:49 Not Given ONCE ONE Medical Decision Making Medical Decision Making MDM Narrative: 22-year-old male presents for evaluation of a sore throat and fever. He has been taking azithromycin as he refused to take amoxicillin due to allergy. The patient denies any fevers but is temperature is 99.4? on arrival. The shaking experiencing is likely rigors related to his fever. We will check basic labs patient's viral panel was negative as was a strep test. Differential Diagnosis Fever Pharyngitis Upper respiratory infection Pneumonia Mononucleosis Lab Data 10/21/22 01:57 10/20/22 23:30 Labs: Lab Results 10/20/22 10/20/22 10/20/22 Range/Units 23:25 23:25 23:30 WBC (4.8-10.8) X10*3/uL RBC (4.60-5.80) X10*6/uL Hgb (14.0-18.0) g/dl Hct (42.0-52.0) % MCV (80.0-98.0) fL MCH (27.0-33.0) pg MCHC (31.0-36.0) g/dl RDW (11.0-16.0) % Plt Count (160-400) X10*3/uL MPV (9.4-12.4) fL Immature Gran % (Auto) (0.0-0.4) % Neut % (Auto) (45-73) % Lymph % (Auto) (20-40) % [place] % (Auto) (2-11) % Eos % (Auto) (0-4) % Baso % (Auto) (0-2) % Lymph # (Auto) (1.2-4.9) X10*3/uL [place] # (Auto) (0.1-1.2) X10*3/uL Eos # (Auto) (0.0-0.4) X10*3/uL Baso # (Auto) (0.0-0.2) X10*3/uL Abs Immat Gran (auto) (0.00-0.03) X10*3/uL Absolute Neuts (auto) (2.0-8.3) x10*3/uL Absolute Nucleated RBC (0.0-0.012) X10*3/uL Nucleated RBC % (auto) (0.0-0.2) /100WBC Sodium (135-145) mmol/L Potassium (3.3-5.1) mmol/L Chloride (96-108) mmol/L Carbon Dioxide (22-29) mmol/L Anion Gap (12-20) BUN (9-16) mg/dL Creatinine (0.5-1.4) mg/dL Estim Creat Clear Calc Estimated GFR Random Glucose (60-115) mg/dL Calcium (8.4-10.2) mg/dL COVID-19 (VADIM) Negative (Negative) COVID-19 Clin Com See Note Monoscreen Negative (Negative) S. pyogenes GrpA LUCIA Negative (Negative) 10/20/22 10/21/22 Range/Units 23:30 01:57 WBC 6.9 (4.8-10.8) X10*3/uL RBC 5.44 (4.60-5.80) X10*6/uL Hgb 15.3 (14.0-18.0) g/dl Hct 44.3 (42.0-52.0) % MCV 81.4 (80.0-98.0) fL MCH 28.1 (27.0-33.0) pg MCHC 34.5 (31.0-36.0) g/dl RDW 13.6 (11.0-16.0) % Plt Count 197 D (160-400) X10*3/uL MPV 9.6 (9.4-12.4) fL Immature Gran % (Auto) 0.1 (0.0-0.4) % Neut % (Auto) 54.4 (45-73) % Lymph % (Auto) 29.5 (20-40) % [place] % (Auto) 14.3 H (2-11) % Eos % (Auto) 1.3 (0-4) % Baso % (Auto) 0.4 (0-2) % Lymph # (Auto) 2.1 (1.2-4.9) X10*3/uL [place] # (Auto) 1.0 (0.1-1.2) X10*3/uL Eos # (Auto) 0.1 (0.0-0.4) X10*3/uL Baso # (Auto) 0.0 (0.0-0.2) X10*3/uL Abs Immat Gran (auto) 0.01 (0.00-0.03) X10*3/uL Absolute Neuts (auto) 3.8 (2.0-8.3) x10*3/uL Absolute Nucleated RBC 0.000 (0.0-0.012) X10*3/uL Nucleated RBC % (auto) 0.0 (0.0-0.2) /100WBC Sodium 141 (135-145) mmol/L Potassium 3.6 (3.3-5.1) mmol/L Chloride 105 (96-108) mmol/L Carbon Dioxide 23 (22-29) mmol/L Anion Gap 17 (12-20) BUN 11 (9-16) mg/dL Creatinine 0.93 (0.5-1.4) mg/dL Estim Creat Clear Calc 177.0 Estimated GFR > 60 Random Glucose 99 (60-115) mg/dL Calcium 8.6 (8.4-10.2) mg/dL COVID-19 (VADIM) (Negative) COVID-19 Clin Com Monoscreen (Negative) S. pyogenes GrpA LUCIA (Negative) Discharge Plan Discharge Clinical Impression: Acute upper respiratory infection Patient Disposition: Home, Self-Care Instructions: Upper Respiratory Infection (ED) Additional Instructions: Your shaking is most likely related to your fever. Continue your antibiotics as well as ibuprofen and Tylenol as prescribed Prescriptions: No Action escitalopram oxalate 10 mg tablet 1 tab PO QAM albuterol sulfate 90 mcg/actuation HFA aerosol inhaler 1 inh inhalation QID PRN (Reason: shortness of breath or wheezing) Qty: 8.5 0RF albuterol sulfate 0.63 mg/3 mL solution for nebulization 0.63 mg inhalation QID PRN (Reason: shortness of breath or wheezing) Qty: 75 0RF azithromycin 250 mg tablet See Rx Instructions .ROUTE .COMPLEX Qty: 6 0RF Rx Instructions: take 500 mg today (day 1), then 250 mg for 4 days (days 2-5) codeine-guaifenesin [Guaifenesin AC] 10-100 mg/5 mL liquid 5 ml PO Q6H PRN (Reason: cold symptoms) Qty: 120 0RF prednisone 20 mg tablet 40 mg PO DAILY 5 Days Qty: 10 0RF prednisone 20 mg tablet 60 mg PO DAILY 5 Days Qty: 15 0RF prednisone 20 mg tablet 40 mg PO DAILY Qty: 10 0RF albuterol sulfate [ProAir HFA] 90 mcg/actuation HFA aerosol inhaler 2 puff inhalation Q4-6H PRN (Reason: Wheezing) Qty: 8.5 0RF albuterol sulfate [ProAir HFA] 90 mcg/actuation HFA aerosol inhaler 2 puff inhalation Q4-6H PRN (Reason: shortness of breath or wheezing) Qty: 8.5 0RF penicillin V potassium 500 mg tablet 500 mg PO BID 10 Days Qty: 20 0RF acetaminophen 500 mg capsule 500 mg PO Q4-6H PRN (Reason: fever) Qty: 30 0RF ibuprofen 800 mg tablet 800 mg PO Q6H PRN (Reason: pain) Qty: 30 0RF azithromycin [Zithromax] 250 mg tablet 250 mg PO DAILY Qty: 6 0RF Rx Instructions: 250 mg orally; take 2 tablets day 1 1 tablet day 2 through 5 Interventions: ED Discharge Assessment Last Done: 04/08/23 04:18 Discharge Date/Time: 10/21/22 02:54
[2022-10-21 01:50] LABS: Anion Gap 17 (12-20); Blood Urea Nitrogen 11 mg/dL (9-16); Calcium 8.6 mg/dL (8.4-10.2); Carbon Dioxide 23 mmol/L (22-29); Chloride 105 mmol/L (96-108); Estimated Glomerular Filt Rate > 60; Glucose Random 99 mg/dL (60-115); Potassium 3.6 mmol/L (3.3-5.1); Sodium 141 mmol/L (135-145)
[2022-10-21 02:02] LABS: MANUAL DIFF FLAG NO
[2022-10-21 02:03] LABS: Basophils Percent Auto 0.4 % (0-2); Eosinophils Absolute Auto 0.1 X10*3/uL (0.0-0.4); Eosinophils Percent Auto 1.3 % (0-4); Hematocrit 44.3 % (42.0-52.0); Hemoglobin 15.3 g/dl (14.0-18.0); Imm Gran Abs Auto 0.01 X10*3/uL (0.00-0.03); Imm Gran Pct Auto 0.1 % (0.0-0.4); Lymphocytes Absolute Auto 2.1 X10*3/uL (1.2-4.9); Lymphocytes Percent Auto 29.5 % (20-40); Mean Corpuscular HGB Conc 34.5 g/dl (31.0-36.0); Mean Corpuscular Hemoglobin 28.1 pg (27.0-33.0); Mean Corpuscular Volume 81.4 fL (80.0-98.0); Mean Platelet Volume 9.6 fL (9.4-12.4); Monocytes Percent Auto 14.3 % (2-11); Neutrophils Absolute Auto 3.8 x10*3/uL (2.0-8.3); Neutrophils Percent Auto 54.4 % (45-73); Platelet Count 197 X10*3/uL (160-400); Red Blood Count 5.44 X10*6/uL (4.60-5.80); Red Cell Distribution Width 13.6 % (11.0-16.0); White Blood Count 6.9 X10*3/uL (4.8-10.8)
== END 2022-10-21 02:54 | disposition home or self-care (01) ==
PROVIDERS: Physician Assistant; Emergency Provider Student in an Organized Health Care Education/Training Program; PCP Internal Medicine
DX: J06.9 Acute upper respiratory infection, unspecified (principal); Z20.822 Contact with and (suspected) exposure to COVID-19; Z20.828 Contact with and (suspected) exposure to other viral communicable diseases; Z79.899 Other long term (current) drug therapy; Z87.891 Personal history of nicotine dependence
CPT/HCPCS: 36415; 71046; 80048; 85025; 86308; 87635; 87651; 99283

== ENCOUNTER 2023-09-23 07:30 | Emergency (ER) | payer OTHER, SELFPAY ==
--- NOTE | ~2023-09-23 | XR_ITS ---
EXAMINATION: XR CHEST CLINICAL INFORMATION: Right chest wall pain, atraumatic. COMPARISON: 10/20/2022 TECHNIQUE: PA and lateral views of the chest were obtained. FINDINGS: A small focus of peripheral airspace consolidation is evident at the lateral aspect of the right midlung. There is subtle adjacent pleural thickening in this region measures more pronounced as compared to the prior study. Left lung is clear. Cardiac and mediastinal contours are normal. No pneumothorax or appreciable pleural effusion. No acute osseous findings PA XR/XR chest 2V IMPRESSION: Small focus of airspace consolidation in the lateral aspect of the right midlung with adjacent pleural thickening, new as compared to the prior study. This could be due to pneumonia or pulmonary contusion. Infarct from pulmonary embolism is also on the differential if there is a corresponding concern for PE.
[2023-09-23 07:47] VITALS: BP 126/61; PULSE 76; RESP 20; TEMP 37.1; O2SAT 97; BMI 34.9
[2023-09-23 07:52] VITALS: RESP 18
--- NOTE | 2023-09-23 07:52 | ED.GENADULT ---
HPI - General Adult General Chief complaint: Extremity Problem Stated complaint: R SHOULDER/BACK PAIN TO CHEST X3 DAYS PER EMS Time Seen by Provider: 09/23/23 07:43 Source: patient Mode of arrival: EMS History of Present Illness HPI narrative: 23-year-old male, history of asthma and is an everyday smoker who arrives via EMS for 3 days of atraumatic right posterior shoulder pain that he states radiates across the deltoid area and worsens with deep inspiration, denies any new exercise regimens, is currently unemployed. He denies any associated fevers, chills, shortness of breath. Related Data Home Medications Medication Instructions Recorded Confirmed escitalopram oxalate 10 mg tablet 1 tab PO QAM 12/01/21 12/01/21 Previous Rx's Medication Instructions Recorded albuterol sulfate 90 mcg/actuation 2 puff inhalation Q4-6H PRN 07/06/21 aerosol inhaler (ProAir HFA) shortness of breath or wheezing #8.5 grams albuterol sulfate 0.63 mg/3 mL 0.63 mg (3 mL) inhalation QID PRN 12/26/21 solution for nebulization shortness of breath or wheezing #75 mL albuterol sulfate 90 mcg/actuation 1 inh inhalation QID PRN shortness 12/26/21 aerosol inhaler of breath or wheezing #8.5 grams azithromycin 250 mg tablet See Rx Instructions PO .COMPLEX #6 12/26/21 tabs codeine 10 mg-guaifenesin 100 mg/5 5 ml PO Q6H PRN cold symptoms #120 12/26/21 mL oral liquid (Guaifenesin AC) mL prednisone 20 mg tablet 40 mg (2 x 20 mg) PO DAILY rash 5 12/26/21 days #10 tabs prednisone 20 mg tablet 60 mg (3 x 20 mg) PO DAILY Asthma 02/01/22 5 days #15 tabs albuterol sulfate 90 mcg/actuation 2 puff inhalation Q4-6H PRN 04/03/22 aerosol inhaler (ProAir HFA) Wheezing #8.5 grams prednisone 20 mg tablet 40 mg (2 x 20 mg) PO DAILY #10 tabs 04/03/22 acetaminophen 500 mg capsule 500 mg PO Q4-6H PRN fever #30 caps 10/18/22 ibuprofen 800 mg tablet 800 mg PO Q6H PRN pain #30 tabs 10/18/22 penicillin V potassium 500 mg 500 mg PO BID 10 days #20 tabs 10/18/22 tablet azithromycin 250 mg tablet 250 mg PO DAILY #6 tabs 10/19/22 (Zithromax) amoxicillin 875 mg-potassium 1 tab PO BID 5 days #10 tabs 09/23/23 clavulanate 125 mg tablet Allergies Allergy/AdvReac Type Severity Reaction Status Date / Time amphetamine [From Adderall] Allergy Intermediate Chills Verified 10/20/22 22:24 dextroamphetamine Allergy Intermediate Chills Verified 10/20/22 22:24 [From Adderall] aripiprazole [From Abilify] AdvReac Severe Anaphylaxis Verified 10/20/22 22:24 Review of Systems Review of Systems: Pertinent positives and negatives as stated in [facility] Past Medical History Source: nursing notes reviewed Social History Social History Alcohol intake: never Patient Tobacco Use Status: Former Tobacco user Smoked in Last 30 Days: Yes Use of substances other than those prescribed or required for medical reasons: No Substance Use Type: Marijuana Advance Directives: No Advance Directives Information Provided: No Physical Exam ED Vital Signs: Vital Signs - 24 hr 09/23/23 07:47 09/23/23 07:52 Temperature 98.8 F Pulse Rate 76 Respiratory Rate 20 18 Blood Pressure 126/61 Pulse Oximetry 97 Oxygen Delivery Method Room Air BMI result Body Mass Index 34.9 VITAL SIGNS: Reviewed. GENERAL: Well developed, well nourished, in no acute distress. HEAD: Normocephalic/atraumatic EYES: PERRLA, EOMI LUNGS: Normal breath sounds. No adventitious sounds or accessory muscle use. SpO2<97> CARDIOVASCULAR: Regular rate and rhythm without noted murmurs ABDOMEN: Soft, non-tender, non-distended with bowel sounds. BACK: Pain is primarily along the infra scapular region, there is no noted deformity/erythema/induration and pain continues to persist in a radiating pattern into the anterior aspect MUSCULOSKELETAL: No tenderness, deformities, or effusions noted on gross inspection. EXTREMITIES: No cyanosis, clubbing or edema. RIGHT SHOULDER: No deformity, no overlying erythema or induration, neurovascular is intact to the distal extremity SKIN: Inspection of the skin reveals no rashes NEUROLOGIC: Alert and oriented x 4. Strength and sensation to light touch were grossly intact x 4. Medications Administered Discontinued Medications Generic Name Dose Route Start Last Admin Trade Name [place] PRN Reason Stop Dose Admin Acetaminophen 975 mg 09/23/23 07:51 09/23/23 08:01 Acetaminophen 325 Mg Tablet PO 09/23/23 07:52 975 mg ONCE ONE Administration Ketorolac Tromethamine 15 mg 09/23/23 07:51 09/23/23 08:01 Ketorolac Tromethamine 30 Mg/Ml Vial IVPUSH 09/23/23 07:52 15 mg ONCE ONE Administration Lidocaine 1 patch 09/23/23 07:51 09/23/23 08:01 Lidocaine 4 % Patch Adh..Patch TRANSDERMA 09/23/23 07:52 1 patch ONCE ONE Administration Protocol Medical Decision Making Medical Decision Making [facility] Narrative: This is a 23-year-old male with history and clinical presentation, DDX: Doubt pneumothorax, suspect musculoskeletal with possible spasm, this is otherwise atraumatic, no evidence to suggest underlying pneumonia or infectious etiology, no concern for fracture/dislocation. PERC: 0 On re-evaluation patient states he is feeling somewhat better, on further discussion and review of the chest x-ray does appear that patient has a pneumonia which he states he has had increased sputum but his structural layout worker informed him it was due to his smoking and he has also been coughing but he thought it was secondary to his asthma. Patient started on antibiotics here in the emergency room and provided with results. Differential Diagnosis Differential Diagnoses: The differential diagnosis associated with the presentation includes Please see the discussion above Admission/Observation Consideration of admission/observation: Escalation of care including admission/observation considered Please see the discussion above Lab Data [facility] Lab Attestation statement: I reviewed the patient's lab results. Please see the discussion above Radiology Impression Discussion of test interpretation with radiology: I have reviewed the radiologist's reading. Radiologist Impression: Please see the discussion above External Record Review External record reviewed: Outpatient record, Prior outpatient labs and Prior outpatient radiology Discharge Plan Discharge Clinical Impression: Pneumonia Patient Disposition: Home, Self-Care Instructions: Pneumonia (ED) Additional Instructions: 1. Resume all home medications as prescribed. 2. Complete the entire course of antibiotics as prescribed. I do recommend that you use [id number] Tylenol/ibuprofen as needed for pain control. 3. Please follow-up with primary care doctor and structural layout worker on Sunday morning. Return to the ER for any worsening symptoms. Prescriptions: New amoxicillin-pot clavulanate 875-125 mg tablet 1 tab PO BID 5 Days Qty: 10 0RF No Action escitalopram oxalate 10 mg tablet 1 tab PO QAM albuterol sulfate 90 mcg/actuation HFA aerosol inhaler 1 inh inhalation QID PRN (Reason: shortness of breath or wheezing) Qty: 8.5 0RF albuterol sulfate 0.63 mg/3 mL solution for nebulization 0.63 mg inhalation QID PRN (Reason: shortness of breath or wheezing) Qty: 75 0RF azithromycin 250 mg tablet See Rx Instructions .ROUTE .COMPLEX Qty: 6 0RF Rx Instructions: take 500 mg today (day 1), then 250 mg for 4 days (days 2-5) codeine-guaifenesin [Guaifenesin AC] 10-100 mg/5 mL liquid 5 ml PO Q6H PRN (Reason: cold symptoms) Qty: 120 0RF prednisone 20 mg tablet 40 mg PO DAILY 5 Days Qty: 10 0RF prednisone 20 mg tablet 60 mg PO DAILY 5 Days Qty: 15 0RF prednisone 20 mg tablet 40 mg PO DAILY Qty: 10 0RF albuterol sulfate [ProAir HFA] 90 mcg/actuation HFA aerosol inhaler 2 puff inhalation Q4-6H PRN (Reason: Wheezing) Qty: 8.5 0RF albuterol sulfate [ProAir HFA] 90 mcg/actuation HFA aerosol inhaler 2 puff inhalation Q4-6H PRN (Reason: shortness of breath or wheezing) Qty: 8.5 0RF penicillin V potassium 500 mg tablet 500 mg PO BID 10 Days Qty: 20 0RF acetaminophen 500 mg capsule 500 mg PO Q4-6H PRN (Reason: fever) Qty: 30 0RF ibuprofen 800 mg tablet 800 mg PO Q6H PRN (Reason: pain) Qty: 30 0RF azithromycin [Zithromax] 250 mg tablet 250 mg PO DAILY Qty: 6 0RF Rx Instructions: 250 mg orally; take 2 tablets day 1 1 tablet day 2 through 5 Referrals: Ramon Godwin MD [Primary Care Provider] -
[2023-09-23] MEDS: Ketorolac Tromethamine 30 MG/ML VIAL 15 MG IVPUSH (08:01)
[2023-09-23] MEDS: Lidocaine 4 % Patch ADH..PATCH 1 PATCH TRANSDERMA (08:01)
[2023-09-23] MEDS: Acetaminophen 325 MG TABLET 975 MG PO (08:01)
[2023-09-23] MEDS: Amoxicillin/Potassium Clav 875 MG TABLET PO (09:24)
[2023-09-23 09:30] VITALS: BP 128/84; PULSE 81; RESP 18; O2SAT 97
== END 2023-09-23 09:31 | disposition home or self-care (01) ==
PROVIDERS: Emergency Provider Student in an Organized Health Care Education/Training Program; PCP Internal Medicine
DX: J18.9 Pneumonia, unspecified organism (principal); Z87.891 Personal history of nicotine dependence; Z79.899 Other long term (current) drug therapy
CPT/HCPCS: 71046; 96374; 99284; J1885

== ENCOUNTER 2023-12-06 23:54 | Emergency (ER) | payer OTHER, SELFPAY ==
--- NOTE | ~2023-12-06 | CT_ITS ---
CT HEAD AND CERVICAL SPINE WITHOUT CONTRAST HISTORY: Trauma TECHNIQUE: Contiguous axial imaging was performed from the skull base to vertex without intravenous contrast. Sagittal and coronal reformatted images were obtained. CT images of the cervical spine were acquired without intravenous contrast. This CT examination was performed using dose optimization techniques as appropriate, variously including the following: *Automated exposure control *Adjustment of mA and/or kV according to patient size (this includes techniques or standardized protocols for targeted exams where dose is matched to indication/reason for exam; i.e. extremities or head) *Use of iterative reconstruction technique DLP: 1342 mGy-cm COMPARISON: None available. FINDINGS: CT HEAD: Background of mild generalized parenchymal volume loss. There is no abnormal attenuation within the brain parenchyma. No territorial loss of ware-white differentiation. No acute intracranial hemorrhage or extra-axial fluid collection. No mass lesion, significant mass effect, or herniation pattern. 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 The orbits are grossly normal. Deformity of the right lamina papyracea, presumably sequela of remote trauma. Mild patchy somewhat polypoid mucosal disease of the sinonasal cavity. No mastoid effusion. Borderline high riding right jugular bulb, dehiscent with the right vestibular aqueduct and likely posterior limb of the internal capsule. 1.0 cm sclerotic benign fibro-osseous lesion in the right anterior parietal calvarium. CT CERVICAL SPINE: No prevertebral soft tissue swelling. The craniocervical junction is intact. Vertebral body heights are normal without acute compression fracture or traumatic posterior element subluxation. The cervical lordosis is preserved. There is no significant spondylolisthesis. Please note that CT is insensitive for evaluating spinal canal patency without intrathecal contrast. 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 Normal appearance of the paraspinal soft tissues. Visualized lung apices are clear. Normal appearance of the thyroid gland. CT/CT cervical spine wo IV con IMPRESSION: 1. No CT evidence of acute intracranial injury. 2. No acute fracture or traumatic malalignment of the cervical spine. 3. 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 4. Borderline high riding right jugular bulb, dehiscent with the right vestibular aqueduct and likely posterior limb of the internal capsule.
[2023-12-07 00:57] VITALS: BP 115/50; PULSE 77; RESP 18; TEMP 36.5; O2SAT 95; BMI 34.0
--- NOTE | 2023-12-07 03:19 | ED_ITS ---
HPI - Fall General Chief Complaint: Fall Stated Complaint: head strike w/ loss of consciousness Time Seen by Provider: 12/07/23 02:57 Source: patient Mode of arrival: ambulatory Limitations: no limitations History of Present Illness ED Provider: DR. Ralph HPI Narrative: 23-year-old male came in for evaluation of head injury after a mechanical fall, patient was sitting on a 4 feet height rock hugging his girlfriend patient fell backward landed on tree root striking the back of his head with LOC for few seconds, patient was complaining of some pain that is improved after drinking water, patient currently have no headache, no dizziness, no nausea, no vomiting, no blurry vision, no neck pain, no weakness, no numbness. Related Data Home Medications ?Medication ?Instructions ?Recorded ?Confirmed escitalopram oxalate 10 mg tablet 1 tab PO QAM 12/01/21 12/01/21 Previous Rx's ?Medication ?Instructions ?Recorded albuterol sulfate 90 mcg/actuation 2 puff inhalation Q4-6H PRN 07/06/21 aerosol inhaler (ProAir HFA) shortness of breath or wheezing #8.5 grams albuterol sulfate 0.63 mg/3 mL 0.63 mg (3 mL) inhalation QID PRN 12/26/21 solution for nebulization shortness of breath or wheezing #75 mL albuterol sulfate 90 mcg/actuation 1 inh inhalation QID PRN shortness 12/26/21 aerosol inhaler of breath or wheezing #8.5 grams azithromycin 250 mg tablet See Rx Instructions PO .COMPLEX #6 12/26/21 tabs codeine 10 mg-guaifenesin 100 mg/5 5 ml PO Q6H PRN cold symptoms #120 12/26/21 mL oral liquid (Guaifenesin AC) mL prednisone 20 mg tablet 40 mg (2 x 20 mg) PO DAILY rash 5 12/26/21 days #10 tabs prednisone 20 mg tablet 60 mg (3 x 20 mg) PO DAILY Asthma 02/01/22 5 days #15 tabs albuterol sulfate 90 mcg/actuation 2 puff inhalation Q4-6H PRN 04/03/22 aerosol inhaler (ProAir HFA) Wheezing #8.5 grams prednisone 20 mg tablet 40 mg (2 x 20 mg) PO DAILY #10 tabs 04/03/22 acetaminophen 500 mg capsule 500 mg PO Q4-6H PRN fever #30 caps 10/18/22 ibuprofen 800 mg tablet 800 mg PO Q6H PRN pain #30 tabs 10/18/22 penicillin V potassium 500 mg 500 mg PO BID 10 days #20 tabs 10/18/22 tablet azithromycin 250 mg tablet 250 mg PO DAILY #6 tabs 10/19/22 (Zithromax) amoxicillin 875 mg-potassium 1 tab PO BID 5 days #10 tabs 09/23/23 clavulanate 125 mg tablet Allergies Allergy/AdvReac Type Severity Reaction Status Date / Time amphetamine [From Adderall] Allergy Intermediate Chills Verified 12/07/23 01:00 dextroamphetamine Allergy Intermediate Chills Verified 12/07/23 01:00 [From Adderall] aripiprazole [From Abilify] AdvReac Severe Anaphylaxis Verified 12/07/23 01:00 Review of Systems Review of Systems: All other systems are reviewed and are negative Constitutional: Reports as per HPI and Reports no additional constitutional complaints Eyes: Reports as per HPI and Reports no additional eye complaints Reports system reviewed and no additional complaints, except as documented Cardiovascular: Reports as per HPI and Reports no additional cardiovascular complaints Respiratory: Reports as per HPI and Reports no additional respiratory complaints Gastrointestinal: Reports as per HPI and Reports no additional gastrointestinal complaints Genitourinary: Reports no additional female genitourinary complaints Musculoskeletal: Reports no additional musculoskeletal complaints Skin/Breast: Reports system reviewed and no additional complaints, except as docu Psychiatric: Reports no additional psychiatric complaints Endocrine: Reports no additional endocrine complaints Hematologic/Lymphatic: Reports no additional hematologic/lymphatic complaints Allergic/Immunologic: Reports no additional allergic/immunologic complaints Reports system reviewed and no additional complaints, except as documented and Reports Abnormal speech present [facility] Social History Social History Alcohol intake: never Patient Tobacco Use Status: Former Tobacco user Substance Use Type: Marijuana Advance Directives: No Advance Directives Information Provided: Yes Do you have a plan to hurt others: No Plan Physical Exam Vital Signs: Vital Signs: Last Vital Signs Temp 97.7 F 12/07/23 00:57 Pulse 77 12/07/23 00:57 Resp 18 12/07/23 00:57 BP 115/50 L 12/07/23 00:57 Pulse Ox 95 12/07/23 00:57 O2 Del Method Room Air 12/07/23 00:57 BMI result Body Mass Index 34.0 Vital signs have been reviewed and appear to be correct. Blood pressure elevated. Heart rate normal. Respiratory rate normal. Temperature normal. Oxygen saturation normal. Appearance: Alert. Oriented X3. No acute distress. Head: Normal external exam. Normocephalic. Atraumatic. No Barbosa signs noted. No raccoon eyes noted Eyes: PERRLA. EOMI. Conjunctiva and sclera normal. Eyelids normal. ENT: TM's Normal. Pharynx normal. Uvula midline. Moist mucous membranes. No trismus noted. No drooling noted. No muffled voice noted. Neck: Normal inspection. Neck supple. FROM. No adenopathy. Thyroid Normal. No meningeal signs. No neck mass noted. CVS: Normal heart rate and rhythm. Heart sound normal. No murmurs noted. Pulses normal throughout. Respiratory: No respiratory distress. Painless inspiration. Breath sounds normal. No wheezes/rales/rhonchi noted. Chest nontender. No accessory muscle usage noted or decreased air movement noted. Abdomen: Soft and nontender. Bowel sounds normal in all 4 quadrants. No distention noted. No organomegaly noted. No visible injury noted. Back: No CVA tenderness. Full range of motion noted. Skin: Skin warm and dry. Normal skin color. Normal skin turgor. No rashes/lesions/lacerations noted. Extremities: No lower extremity edema. Extremities exhibit normal range of motion. Extremities nontender. Neuro: Oriented X 3. Cranial nerve exam: II-XII are grossly intact No motor deficit. No sensory deficit. Reflexes normal. Course Reevaluation(s) Reevaluation #1: S/p mechanical fall, GCS of 15, normal neuro exam, head CT is unremarkable for acute pathology. CT head is revealing insignificant accidental findings, Time: 03:22 Medical Decision Making Differential Diagnosis Differential Diagnoses: The differential diagnosis associated with the presentation includes (Intracranial bleed, cervical spine injury, brain concussion.) Admission/Observation Consideration of admission/observation: Escalation of care including admission/observation considered Independent Interpretation I performed an independent interpretation of an: CT Scan (Head/cervical spine:1. No CT evidence of acute intracranial injury. 2. No acute fracture or traumatic malalignment of the cervical spine. 3. 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 4. Borderline high riding right jug) Radiology Impression Discussion of test interpretation with radiology: I have reviewed the radiologist's reading. Discharge Plan Discharge Clinical Impression: Closed head injury Patient Disposition: Home, Self-Care Instructions: Head Injury (ED) Prescriptions: No Action escitalopram oxalate 10 mg tablet 1 tab PO QAM albuterol sulfate 90 mcg/actuation HFA aerosol inhaler 1 inh inhalation QID PRN (Reason: shortness of breath or wheezing) Qty: 8.5 0RF albuterol sulfate 0.63 mg/3 mL solution for nebulization 0.63 mg inhalation QID PRN (Reason: shortness of breath or wheezing) Qty: 75 0RF azithromycin 250 mg tablet See Rx Instructions .ROUTE .COMPLEX Qty: 6 0RF Rx Instructions: take 500 mg today (day 1), then 250 mg for 4 days (days 2-5) codeine-guaifenesin [Guaifenesin AC] 10-100 mg/5 mL liquid 5 ml PO Q6H PRN (Reason: cold symptoms) Qty: 120 0RF prednisone 20 mg tablet 40 mg PO DAILY 5 Days Qty: 10 0RF prednisone 20 mg tablet 60 mg PO DAILY 5 Days Qty: 15 0RF prednisone 20 mg tablet 40 mg PO DAILY Qty: 10 0RF albuterol sulfate [ProAir HFA] 90 mcg/actuation HFA aerosol inhaler 2 puff inhalation Q4-6H PRN (Reason: Wheezing) Qty: 8.5 0RF albuterol sulfate [ProAir HFA] 90 mcg/actuation HFA aerosol inhaler 2 puff inhalation Q4-6H PRN (Reason: shortness of breath or wheezing) Qty: 8.5 0RF amoxicillin-pot clavulanate 875-125 mg tablet 1 tab PO BID 5 Days Qty: 10 0RF penicillin V potassium 500 mg tablet 500 mg PO BID 10 Days Qty: 20 0RF acetaminophen 500 mg capsule 500 mg PO Q4-6H PRN (Reason: fever) Qty: 30 0RF ibuprofen 800 mg tablet 800 mg PO Q6H PRN (Reason: pain) Qty: 30 0RF azithromycin [Zithromax] 250 mg tablet 250 mg PO DAILY Qty: 6 0RF Rx Instructions: 250 mg orally; take 2 tablets day 1 1 tablet day 2 through 5 Print Language: Welsh
[2023-12-07 03:35] VITALS: BP 118/61; PULSE 65; RESP 14; TEMP 36.7; O2SAT 96
[2023-12-07 03:40] VITALS: BP 118/61; PULSE 65; RESP 16; TEMP 36.6; O2SAT 96
== END 2023-12-07 03:45 | disposition home or self-care (01) ==
PROVIDERS: Emergency Provider Emergency Medicine
DX: S09.90XA Unspecified injury of head, initial encounter (principal); W17.89XA Other fall from one level to another, initial encounter; Y93.89 Activity, other specified; Y92.89 Other specified places as the place of occurrence of the external cause; Y99.9 Unspecified external cause status
CPT/HCPCS: 70450; 72125; 99283; 99284

== ENCOUNTER 2024-01-03 20:24 | Emergency (ER) | payer OTHER, SELFPAY ==
[2024-01-03 20:26] VITALS: BP 141/70; PULSE 82; RESP 18; TEMP 36.8; O2SAT 97; BMI 33.0
--- NOTE | 2024-01-03 20:26 | ED.GENADULT ---
HPI - General Adult General Chief complaint: Syncope Stated complaint: heat stroke? Time Seen by Provider: 01/03/24 21:45 Source: patient Mode of arrival: ambulatory Limitations: no limitations History of Present Illness ED Provider: stephan GARRETT narrative: Patient was outside all day today in eat felt dizzy and passed out feeling back to normal at this time no seizures also noticed sharp chest pain history of same in the past Related Data Home Medications ?Medication ?Instructions ?Recorded ?Confirmed escitalopram oxalate 10 mg tablet 1 tab PO QAM 12/01/21 12/01/21 Previous Rx's ?Medication ?Instructions ?Recorded albuterol sulfate 90 mcg/actuation 2 puff inhalation Q4-6H PRN 07/06/21 aerosol inhaler (ProAir HFA) shortness of breath or wheezing #8.5 grams albuterol sulfate 0.63 mg/3 mL 0.63 mg (3 mL) inhalation QID PRN 12/26/21 solution for nebulization shortness of breath or wheezing #75 mL albuterol sulfate 90 mcg/actuation 1 inh inhalation QID PRN shortness 12/26/21 aerosol inhaler of breath or wheezing #8.5 grams azithromycin 250 mg tablet See Rx Instructions PO .COMPLEX #6 12/26/21 tabs codeine 10 mg-guaifenesin 100 mg/5 5 ml PO Q6H PRN cold symptoms #120 12/26/21 mL oral liquid (Guaifenesin AC) mL prednisone 20 mg tablet 40 mg (2 x 20 mg) PO DAILY rash 5 12/26/21 days #10 tabs prednisone 20 mg tablet 60 mg (3 x 20 mg) PO DAILY Asthma 02/01/22 5 days #15 tabs albuterol sulfate 90 mcg/actuation 2 puff inhalation Q4-6H PRN 04/03/22 aerosol inhaler (ProAir HFA) Wheezing #8.5 grams prednisone 20 mg tablet 40 mg (2 x 20 mg) PO DAILY #10 tabs 04/03/22 acetaminophen 500 mg capsule 500 mg PO Q4-6H PRN fever #30 caps 10/18/22 ibuprofen 800 mg tablet 800 mg PO Q6H PRN pain #30 tabs 10/18/22 penicillin V potassium 500 mg 500 mg PO BID 10 days #20 tabs 10/18/22 tablet azithromycin 250 mg tablet 250 mg PO DAILY #6 tabs 10/19/22 (Zithromax) amoxicillin 875 mg-potassium 1 tab PO BID 5 days #10 tabs 09/23/23 clavulanate 125 mg tablet Allergies Allergy/AdvReac Type Severity Reaction Status Date / Time amphetamine [From Adderall] Allergy Intermediate Chills Verified 01/03/24 20:28 dextroamphetamine Allergy Intermediate Chills Verified 01/03/24 20:28 [From Adderall] aripiprazole [From Abilify] AdvReac Severe Anaphylaxis Verified 01/03/24 20:28 Review of Systems Review of Systems: Yes all other systems are reviewed and are negative [facility] Social History Social History Alcohol intake: never Patient Tobacco Use Status: Former Tobacco user Smoked in Last 30 Days: Yes Use of substances other than those prescribed or required for medical reasons: No Substance Use Type: Marijuana Advance Directives: No Advance Directives Information Provided: No Do you have a plan to hurt others: No Plan Physical Exam ED Vital Signs: Vital Signs - 24 hr 01/03/24 20:26 01/03/24 21:16 01/03/24 21:27 Temperature 98.3 F Pulse Rate 82 78 Respiratory Rate 18 Blood Pressure 141/70 H 125/58 L Pulse Oximetry 97 98 Oxygen Delivery Method Room Air Room Air 01/03/24 21:27 01/03/24 21:28 01/03/24 21:29 Temperature 97.8 F Pulse Rate 73 80 78 Respiratory Rate 17 Blood Pressure 128/85 143/79 H 125/73 Pulse Oximetry 96 Oxygen Delivery Method Room Air 01/03/24 23:15 Temperature 98.1 F Pulse Rate 82 Respiratory Rate 16 Blood Pressure 120/69 Pulse Oximetry 97 Oxygen Delivery Method Room Air BMI result Body Mass Index 33.0 Appearance: Alert. Oriented X3. No acute distress. Eyes: PERRLA, No Nystagmus ENT: Pharynx normal. Oral Mucosa moist Neck: Normal inspection. Neck supple. CVS: Normal heart rate and rhythm. Pulses normal. Respiratory: No respiratory distress. Equal air entry bilateral, no wheezing/rales/rhonchi Abdomen: Soft and nontender. Bowel sounds are present, no mass palpable, no CVA tenderness Skin: Skin warm and dry. Normal skin color. Normal skin turgor. Extremities: No lower extremity edema. No calf tenderness Neuro: Oriented X 3. No motor deficit. No sensory deficit.No cerebellar signs , cranial nerves II-XII intact Course Course Course Narrative: This is a Rapid Medical Exam performed in triage by Juhi Ku PA-C. Full HPI, ROS and PE to be performed by primary ED provider. 23 year-old M w/ PMHx asthma, presenting to the ED c/o heat stroke about 1hr ago. Reports passing out 2x and do not remember the last hour. States was sitting outside smoking cigarette when occurred. Reports chest pain, SOB & dizziness upon waking. denies head trauma, incontinence, tongue biting. Was witnessed by daughter and girlfriend. denies drug use. PE: Ambulating w/steady gait, no focal neuro deficits, appears under the influence Plan: EKG, Labs, Tox screen Medications Administered Discontinued Medications Generic Name Dose Route Start Last Admin Trade Name Freq PRN Reason Stop Dose Admin Sodium Chloride 1,000 mls @ 999 mls/hr 01/03/24 20:30 01/03/24 22:05 Ns IV 01/03/24 21:30 Infused .Q1H1M JOSEPH Infusion Medical Decision Making Medical Decision Making [facility] Narrative: Patient with heat exhaustion syncope episode feeling better at this time urinating in the ER received 1 L of normal saline urine drug screen negative discharge patient home advised to stay in shaded area Differential Diagnosis Differential Diagnoses: The differential diagnosis associated with the presentation includes Lab Data [facility] Lab Attestation statement: I reviewed the patient's lab results. 01/03/24 20:55 01/03/24 20:55 Labs: Lab Results 01/03/24 01/03/24 Range/Units 20:55 20:56 WBC 8.4 (4.8-10.8) X10*3/uL RBC 5.84 H (4.60-5.80) X10*6/uL Hgb 17.1 (14.0-18.0) g/dl Hct 48.8 (42.0-52.0) % MCV 83.6 (80.0-98.0) fL MCH 29.3 (27.0-33.0) pg MCHC 35.0 (31.0-36.0) g/dl RDW 13.1 (11.0-16.0) % Plt Count 274 D (160-400) X10*3/uL MPV 10.1 (9.4-12.4) fL Immature Gran % (Auto) 0.4 (0.0-0.4) % Neut % (Auto) 57.3 (45-73) % Lymph % (Auto) 32.4 (20-40) % Gregory % (Auto) 7.4 (2-11) % Eos % (Auto) 2.1 (0-4) % Baso % (Auto) 0.4 (0-2) % Lymph # (Auto) 2.7 (1.2-4.9) X10*3/uL Gregory # (Auto) 0.6 (0.1-1.2) X10*3/uL Eos # (Auto) 0.2 (0.0-0.4) X10*3/uL Baso # (Auto) 0.0 (0.0-0.2) X10*3/uL Abs Immat Gran (auto) 0.03 (0.00-0.03) X10*3/uL Absolute Neuts (auto) 4.8 (2.0-8.3) x10*3/uL Absolute Nucleated RBC 0.000 (0.0-0.012) X10*3/uL Nucleated RBC % (auto) 0.0 (0.0-0.2) /100WBC Sodium 143 (135-145) mmol/L Potassium 4.0 (3.3-5.1) mmol/L Chloride 107 (96-108) mmol/L Carbon Dioxide 26 (22-29) mmol/L Anion Gap 14 (12-20) BUN 13 (9-16) mg/dL Creatinine 1.06 (0.5-1.4) mg/dL Estim Creat Clear Calc 144.2 Estimated GFR > 60 Random Glucose 88 (60-115) mg/dL Calcium 10.0 D (8.4-10.2) mg/dL Magnesium 2.5 (1.6-2.6) mg/dL Total Bilirubin 1.4 H (0.0-1.0) mg/dL Direct Bilirubin 0.4 (0.0-0.5) mg/dL AST 23 (5-37) U/L ALT 22 (0-40) U/L Alkaline Phosphatase 122 H (39-117) U/L Troponin I High Sens < 2.7 (<3.5-35.0) ng/L Total Protein 7.3 (6.5-8.0) g/dL Albumin 4.5 (3.5-5.0) g/dL Urine Color Yellow Urine Appearance Clear Urine pH 7.0 (5.0-9.0) Ur Specific Eugene 1.025 (1.005-1.025) Urine Protein Trace (Neg-Trace) mg/dL Urine Glucose (UA) Negative (Negative) mg/dL Urine Ketones Trace (Negative) mg/dL Urine Blood Negative (Negative) Urine Nitrite Negative (Negative) Ur Leukocyte Esterase Negative (Negative) Urine Opiates Screen Not Detected (Not Detect) Ur Buprenorphine Scrn Not Detected (Not Detect) ng/mL Ur Oxycodone Screen Not Detected (Not Detect) ng/mL Urine Methadone Screen Not Detected (Not Detect) ng/mL Urine Fentanyl Screen Not Detected (Not Detect) Ur Barbiturates Screen Not Detected (Not Detect) Ur Phencyclidine Scrn Not Detected (Not Detect) Ur Amphetamines Screen Not Detected (Not Detect) U Benzodiazepines Scrn Not Detected (Not Detect) Urine Cocaine Screen Not Detected (Not Detect) U Marijuana (THC) Screen Not Detected (Not Detect) Ethyl Alcohol < 10 mg/dL Independent Interpretation I performed an independent interpretation of an: EKG Interpretation: Normal sinus rhythm heart rate 71 beats per minute normal intervals normal axis no acute ST T wave changes no acute ischemia Discharge Plan Discharge Clinical Impression: Heat exhaustion Patient Disposition: Home, Self-Care Instructions: Heat Exhaustion (DC) Additional Instructions: Stay in cool shaded area Drink plenty of fluids Prescriptions: No Action escitalopram oxalate 10 mg tablet 1 tab PO QAM albuterol sulfate 90 mcg/actuation HFA aerosol inhaler 1 inh inhalation QID PRN (Reason: shortness of breath or wheezing) Qty: 8.5 0RF albuterol sulfate 0.63 mg/3 mL solution for nebulization 0.63 mg inhalation QID PRN (Reason: shortness of breath or wheezing) Qty: 75 0RF azithromycin 250 mg tablet See Rx Instructions .ROUTE .COMPLEX Qty: 6 0RF Rx Instructions: take 500 mg today (day 1), then 250 mg for 4 days (days 2-5) codeine-guaifenesin [Guaifenesin AC] 10-100 mg/5 mL liquid 5 ml PO Q6H PRN (Reason: cold symptoms) Qty: 120 0RF prednisone 20 mg tablet 40 mg PO DAILY 5 Days Qty: 10 0RF prednisone 20 mg tablet 60 mg PO DAILY 5 Days Qty: 15 0RF prednisone 20 mg tablet 40 mg PO DAILY Qty: 10 0RF albuterol sulfate [ProAir HFA] 90 mcg/actuation HFA aerosol inhaler 2 puff inhalation Q4-6H PRN (Reason: Wheezing) Qty: 8.5 0RF albuterol sulfate [ProAir HFA] 90 mcg/actuation HFA aerosol inhaler 2 puff inhalation Q4-6H PRN (Reason: shortness of breath or wheezing) Qty: 8.5 0RF amoxicillin-pot clavulanate 875-125 mg tablet 1 tab PO BID 5 Days Qty: 10 0RF penicillin V potassium 500 mg tablet 500 mg PO BID 10 Days Qty: 20 0RF acetaminophen 500 mg capsule 500 mg PO Q4-6H PRN (Reason: fever) Qty: 30 0RF ibuprofen 800 mg tablet 800 mg PO Q6H PRN (Reason: pain) Qty: 30 0RF azithromycin [Zithromax] 250 mg tablet 250 mg PO DAILY Qty: 6 0RF Rx Instructions: 250 mg orally; take 2 tablets day 1 1 tablet day 2 through 5 Stand Alone Forms: Work/School Release Interventions: ED Discharge Assessment Last Done: 01/03/24 23:15 Discharge Date/Time: 01/03/24 23:16 Print Language: Swedish
--- NOTE | 2024-01-03 20:29 | ECG_ITS ---
Test Reason : SYNCOPE Blood Pressure : / mmHG Vent. Rate : 071 BPM Atrial Rate : 071 BPM P-R Int : 150 ms QRS Dur : 084 ms QT Int : 332 ms P-R-T Axes : 054 001 013 degrees QTc Int : 360 ms Normal sinus rhythm Normal ECG No previous ECGs available Referred By: Juhi Ku Electronically Signed By:Martín Zaragoza
[2024-01-03 21:01] LABS: MANUAL DIFF FLAG NO
[2024-01-03] MEDS: 0.9 % Sodium Chloride 1,000 ML 999 ML IV (21:03)
[2024-01-03 21:04] LABS: Appearance Urine Clear; Color Urine Yellow; Glucose Urine UA Negative (Negative); Leukocyte Esterase Urine Negative (Negative); Nitrite Urine Negative (Negative); Specific Gravity - Urine 1.025 (1.005-1.025); Urine Blood Negative (Negative); Urine Ketones Trace mg/dL (Negative); Urine Protein Trace mg/dL (Neg-Trace)
[2024-01-03 21:14] LABS: Amphetamine Screen Urine Not Detected (Not Detect); Barbiturates, Urine Not Detected (Not Detect); Benzodiazepines Screen Urine Not Detected (Not Detect); Buprenorphine Scr Not Detected (Not Detect); Cannabinoid Screen Urine Not Detected (Not Detect); Cocaine Screen Urine Not Detected (Not Detect); Fentanyl, urine Not Detected (Not Detect); Methadone Screen, Urine Not Detected (Not Detect); Opiate Screen Urine Not Detected (Not Detect); Oxycodone Screen Urine Not Detected (Not Detect); Phencyclidine Screen Urine Not Detected (Not Detect)
[2024-01-03 21:16] VITALS: PULSE 78; O2SAT 98
[2024-01-03 21:18] LABS: Alanine Aminotransferase 22 U/L (0-40); Albumin Level 4.5 g/dL (3.5-5.0); Alkaline Phosphatase 122 U/L (39-117); Anion Gap 14 (12-20); Aspartate Amino Transferase 23 U/L (5-37); Bilirubin Direct 0.4 mg/dL (0.0-0.5); Bilirubin Total 1.4 mg/dL (0.0-1.0); Blood Urea Nitrogen 13 mg/dL (9-16); Carbon Dioxide 26 mmol/L (22-29); Chloride 107 mmol/L (96-108); Creatinine Clr Calc Pharmacy 144.2; Estimated Glomerular Filt Rate > 60; Glucose Random 88 mg/dL (60-115); Magnesium 2.5 mg/dL (1.6-2.6); Sodium 143 mmol/L (135-145); Total Protein 7.3 g/dL (6.5-8.0)
[2024-01-03 21:20] LABS: Ethanol < 10 mg/dL
[2024-01-03 21:27] VITALS: BP 125/58; BP 128/85; PULSE 73; PULSE 78
[2024-01-03 21:28] VITALS: BP 143/79; PULSE 80
[2024-01-03 21:29] VITALS: BP 125/73; PULSE 78; RESP 17; TEMP 36.6; O2SAT 96
[2024-01-03 21:29] LABS: Basophils Percent Auto 0.4 % (0-2); Eosinophils Absolute Auto 0.2 X10*3/uL (0.0-0.4); Eosinophils Percent Auto 2.1 % (0-4); Hematocrit 48.8 % (42.0-52.0); Hemoglobin 17.1 g/dl (14.0-18.0); Imm Gran Abs Auto 0.03 X10*3/uL (0.00-0.03); Imm Gran Pct Auto 0.4 % (0.0-0.4); Lymphocytes Absolute Auto 2.7 X10*3/uL (1.2-4.9); Lymphocytes Percent Auto 32.4 % (20-40); Mean Corpuscular Hemoglobin 29.3 pg (27.0-33.0); Mean Corpuscular Volume 83.6 fL (80.0-98.0); Mean Platelet Volume 10.1 fL (9.4-12.4); Monocytes Absolute Auto 0.6 X10*3/uL (0.1-1.2); Monocytes Percent Auto 7.4 % (2-11); Neutrophils Absolute Auto 4.8 x10*3/uL (2.0-8.3); Neutrophils Percent Auto 57.3 % (45-73); Platelet Count 274 X10*3/uL (160-400); Red Blood Count 5.84 X10*6/uL (4.60-5.80); Red Cell Distribution Width 13.1 % (11.0-16.0); Troponin-I High Sensitivity < 2.7 ng/L (<3.5-35.0); White Blood Count 8.4 X10*3/uL (4.8-10.8)
[2024-01-03 23:15] VITALS: BP 120/69; PULSE 82; RESP 16; TEMP 36.7; O2SAT 97
== END 2024-01-03 23:16 | disposition home or self-care (01) ==
PROVIDERS: Physician Assistant; Emergency Provider Internal Medicine; PCP Internal Medicine
DX: T67.3XXA Heat exhaustion, anhydrotic, initial encounter (principal); X32.XXXA Exposure to sunlight, initial encounter; R55 Syncope and collapse; R07.9 Chest pain, unspecified; R06.02 Shortness of breath; Z87.891 Personal history of nicotine dependence; F12.90 Cannabis use, unspecified, uncomplicated; Y93.89 Activity, other specified; Y92.89 Other specified places as the place of occurrence of the external cause; Y99.9 Unspecified external cause status
CPT/HCPCS: 36415; 80048; 80076; 80307; 81003; 83735; 84484; 85025; 93005; 96360; 99284; 99285

== ENCOUNTER → 2024-01-03 20:29 | Outpatient (BNV) | payer OTHER, SELFPAY | PROVIDERS: Emergency Provider Internal Medicine; PCP Internal Medicine; Visit Provider Internal Medicine Cardiovascular Disease | DX: R55 Syncope and collapse (principal) | CPT/HCPCS: 93010 ==

== ENCOUNTER 2024-01-11 12:07 | Emergency (ER) | payer OTHER, SELFPAY ==
--- NOTE | ~2024-01-11 | XR_ITS ---
EXAMINATION: XR HAND/WRIST, LEFT CLINICAL INFORMATION: Fall. Pain. COMPARISON: None TECHNIQUE: Four views of the left hand and wrist. FINDINGS: The bones and soft tissues are normal. No fracture. Alignment is anatomic. Joint spaces are maintained. No erosions or soft tissue calcifications. XR/XR hand wrist LT IMPRESSION: Normal radiographs of the hand and wrist.
--- NOTE | ~2024-01-11 | CT_ITS ---
EXAMINATION: CT CERVICAL SPINE WITHOUT CONTRAST CLINICAL INFORMATION: Fall. Midline tenderness. COMPARISON: Previous cervical spine CT November 2023 TECHNIQUE: Axial images through the cervical spine without contrast. Sagittal and coronal reconstructions. This CT examination was performed using dose optimization techniques as appropriate, variously including the following: *Automated exposure control *Adjustment of mA and/or kV according to patient size (this includes techniques or standardized protocols for targeted exams where dose is matched to indication/reason for exam; i.e. extremities or head) *Use of iterative reconstruction technique DLP: 592 mGy-cm FINDINGS: Bone alignment is normal. No fracture or dislocation. Normal disc spaces. Normal prevertebral soft tissues. Visualized lung apices are clear. CT/CT cervical spine wo IV con IMPRESSION: Unremarkable examination. Fleischner guidelines were followed.
--- NOTE | ~2024-01-11 | CT_ITS ---
EXAMINATION: CT HEAD WITHOUT CONTRAST CLINICAL INFORMATION: Fall. Head trauma. Headache. Question loss of consciousness. COMPARISON: Previous head CT November 2023 TECHNIQUE: Contiguous axial imaging was performed from the skull base to vertex without intravenous administration of contrast. This CT examination was performed using dose optimization techniques as appropriate, variously including the following: *Automated exposure control *Adjustment of mA and/or kV according to patient size (this includes techniques or standardized protocols for targeted exams where dose is matched to indication/reason for exam; i.e. extremities or head) *Use of iterative reconstruction technique DLP: 883 mGy-cm FINDINGS: There is no evidence for an extra-axial collection. There is no evidence for intra-or extra-axial hemorrhage. The ventricles and extra-axial CSF spaces are appropriate. Bennett-white matter differentiation is normal. No mass, mass effect or infarct is seen. Low right cerebellar tonsil unchanged. No skull fracture. High right jugular bulb similar to prior exam. Small polyp or cyst and membranous soft tissue thickening in the right maxillary sinus. Remainder of the sinuses, mastoid air cells and middle ears are clear. CT/CT head/brain wo IV con IMPRESSION: No acute intracranial findings. No change from November 2023 exam.
[2024-01-11 12:09] VITALS: BP 140/74; PULSE 107; O2SAT 96
[2024-01-11 12:25] VITALS: BP 122/54; PULSE 94; RESP 16; TEMP 37.1; O2SAT 99; BMI 33.0
--- NOTE | 2024-01-11 12:55 | ED_ITS ---
HPI - Fall General Chief Complaint: Fall Stated Complaint: FELL ROLLING ONTO NECK Time Seen by Provider: 01/11/24 12:17 Source: patient Mode of arrival: EMS Limitations: no limitations History of Present Illness HPI Narrative: patient is a 23-year-old male who presents emergency department via EMS for evaluation. He was at [employer], was playing tug of war when he lost balance and his balance when his foot got caught in a ditch. He reportedly fell forward striking his face onto the ground. He reports having a diffuse headache, pain at C7 which was immediate onset, and pain to the left wrist along the radial aspect. He states he does not recall approximately 1 minute of time and believes he lost consciousness when this happened. he states he was unable to get up after this happened required assistance to the EMS stretcher. He was placed in a hard cervical spine collar. He denies dizziness, lightheadedness, numbness or tingling of the extremities, bladder bowel dysfunction, saddle paresthesias, chest pain, shortness of breath. Related Data Home Medications ?Medication ?Instructions ?Recorded ?Confirmed escitalopram oxalate 10 mg tablet 1 tab PO QAM 12/01/21 12/01/21 Previous Rx's ?Medication ?Instructions ?Recorded albuterol sulfate 90 mcg/actuation 2 puff inhalation Q4-6H PRN 07/06/21 aerosol inhaler (ProAir HFA) shortness of breath or wheezing #8.5 grams albuterol sulfate 0.63 mg/3 mL 0.63 mg (3 mL) inhalation QID PRN 12/26/21 solution for nebulization shortness of breath or wheezing #75 mL albuterol sulfate 90 mcg/actuation 1 inh inhalation QID PRN shortness 12/26/21 aerosol inhaler of breath or wheezing #8.5 grams azithromycin 250 mg tablet See Rx Instructions PO .COMPLEX #6 12/26/21 tabs codeine 10 mg-guaifenesin 100 mg/5 5 ml PO Q6H PRN cold symptoms #120 12/26/21 mL oral liquid (Guaifenesin AC) mL prednisone 20 mg tablet 40 mg (2 x 20 mg) PO DAILY rash 5 12/26/21 days #10 tabs prednisone 20 mg tablet 60 mg (3 x 20 mg) PO DAILY Asthma 02/01/22 5 days #15 tabs albuterol sulfate 90 mcg/actuation 2 puff inhalation Q4-6H PRN 04/03/22 aerosol inhaler (ProAir HFA) Wheezing #8.5 grams prednisone 20 mg tablet 40 mg (2 x 20 mg) PO DAILY #10 tabs 04/03/22 acetaminophen 500 mg capsule 500 mg PO Q4-6H PRN fever #30 caps 10/18/22 ibuprofen 800 mg tablet 800 mg PO Q6H PRN pain #30 tabs 10/18/22 penicillin V potassium 500 mg 500 mg PO BID 10 days #20 tabs 10/18/22 tablet azithromycin 250 mg tablet 250 mg PO DAILY #6 tabs 10/19/22 (Zithromax) amoxicillin 875 mg-potassium 1 tab PO BID 5 days #10 tabs 09/23/23 clavulanate 125 mg tablet Allergies Allergy/AdvReac Type Severity Reaction Status Date / Time amphetamine [From Adderall] Allergy Intermediate Chills Verified 01/11/24 12:30 dextroamphetamine Allergy Intermediate Chills Verified 01/11/24 12:30 [From Adderall] aripiprazole [From Abilify] AdvReac Severe Anaphylaxis Verified 01/11/24 12:30 Review of Systems Review of Systems: Yes all other systems are reviewed and are negative PMFSH Past Medical History Attestation statement: The following information was validated with the patient. Source: old records reviewed Social History Social History Alcohol intake: never Patient Tobacco Use Status: Former Tobacco user Substance Use Type: Marijuana Advance Directives: No Advance Directives Information Provided: No Do you have a plan to hurt others: No Plan Physical Exam Vital Signs: Vital Signs: Last Vital Signs Temp 97.9 F 01/11/24 14:49 Pulse 87 01/11/24 14:49 Resp 20 01/11/24 14:49 BP 119/64 01/11/24 14:49 Pulse Ox 97 01/11/24 14:49 O2 Del Method Room Air 01/11/24 14:49 BMI result Body Mass Index 33.0 Appearance: Alert.?Oriented to person, place and time. No acute distress.?Normal affect. Head: Normocephalic Eyes: Pupils equal, round and reactive to light. EOMI. Conjunctiva and sclera normal? No Barbosa sign noted. No raccoon eyes noted ENT: No septal hematoma, nares patent bilaterally. External auditory canal normal tympanic membrane pearly ware and intact bilaterally. Dentition normal, no fractured teeth. No lesions or lacerations of oropharynx. Uvula midline. Moist mucous membranes. Neck: Normal inspection.? Neck supple.??palpable Midline tenderness throughout the cervical spine, no palpable step-off or deformities. CVS: Heart sounds normal. Normal heart rate and rhythm.? Pulses normal.?? Respiratory: No respiratory distress.? Lung sounds clear to auscultation bilaterally?? Abdomen: Soft and non-tender. Normoactive bowel sounds. ?? Skin: Skin warm and dry.? Normal skin color.? Normal skin turgor.?? Extremities: No lower extremity edema.? no obvious deformity to the left hand / wrist. Decreased range of motion with flexion and extension due to pain. 2+ radial pulse. Anatomical snuffbox with tenderness upon palpation. Neuro: Moves all extremities spontaneously. Sensation intact bilaterally. CN II- XII intact. No focal neuro deficits. Medical Decision Making Medical Decision Making MDM Narrative: Patient is a 23 year oldold male who presents emergency department for evaluation after a mechanical fall with head injury concern for loss of consciousness with immediate midline cervical spine pain and left wrist pain as per HPI. Overall he appears well, nontoxic, afebrile. He is speaking clear full sentences. Moving bilateral upper and lower extremities without complication and they are neurovascularly intact distally. On examination does have findings concerning for collar findings. He has diffuse midline tenderness upon palpation of the cervical spine but no palpable bony step-offs or deformities. Plan to obtain CT of the head spine to exclude ICH, SDH, fracture, subluxation in addition to XR of the left wrist including scaphoid view to evaluate for fracture / dislocation versus contusion. CT head and cervical spine without acute pathology, hard cervical spine collar removed, full range of motion present to the neck. Remains without focal neurological deficits. XR of the wrist is without acute fracture dislocation. At this time he is noted to have full range of motion to the wrist and digits. Stable discharge home Differential Diagnosis Differential Diagnoses: The differential diagnosis associated with the presen tation includes ( See narrative above) Admission/Observation Consideration of admission/observation: Escalation of care including admission/observation considered Independent Interpretation I performed an independent interpretation of an: Plain X-Ray ( no acute fracture of the left hand/wrist.) Radiology Impression Discussion of test interpretation with radiology: I have reviewed the radiologist's reading. Radiologist Impression: XR/XR hand wrist LT IMPRESSION: Normal radiographs of the hand and wrist. CT/CT cervical spine wo IV con IMPRESSION: Unremarkable examination. CT/CT head/brain wo IV con IMPRESSION: No acute intracranial findings. No change from November 2023 exam. Independent Historian Clinical information obtained from an independent historian. History obtained from or confirmed by: EMS Discharge Plan Discharge Clinical Impression: Concussion without loss of consciousness Qualifiers: Encounter type: initial encounter Qualified Code(s): S06.0X0A - Concussion without loss of consciousness, initial encounter Left wrist sprain Qualifiers: Encounter type: initial encounter Qualified Code(s): S63.502A - Unspecified sprain of left wrist, initial encounter Patient Disposition: Home, Self-Care Instructions: Wrist Sprain (ED), Concussion (ED) Additional Instructions: You can take ibuprofen 200 mg, 3 tablets (600mg) every 6-8 hours as needed for pain, in addition to Tylenol 500 mg, 2 tablets (1,000mg) every 4-6 hours as needed for pain, but not to exceed 3 doses daily (3,000mg).? Prescriptions: No Action escitalopram oxalate 10 mg tablet 1 tab PO QAM albuterol sulfate 90 mcg/actuation HFA aerosol inhaler 1 inh inhalation QID PRN (Reason: shortness of breath or wheezing) Qty: 8.5 0RF albuterol sulfate 0.63 mg/3 mL solution for nebulization 0.63 mg inhalation QID PRN (Reason: shortness of breath or wheezing) Qty: 75 0RF azithromycin 250 mg tablet See Rx Instructions .ROUTE .COMPLEX Qty: 6 0RF Rx Instructions: take 500 mg today (day 1), then 250 mg for 4 days (days 2-5) codeine-guaifenesin [Guaifenesin AC] 10-100 mg/5 mL liquid 5 ml PO Q6H PRN (Reason: cold symptoms) Qty: 120 0RF prednisone 20 mg tablet 40 mg PO DAILY 5 Days Qty: 10 0RF prednisone 20 mg tablet 60 mg PO DAILY 5 Days Qty: 15 0RF prednisone 20 mg tablet 40 mg PO DAILY Qty: 10 0RF albuterol sulfate [ProAir HFA] 90 mcg/actuation HFA aerosol inhaler 2 puff inhalation Q4-6H PRN (Reason: Wheezing) Qty: 8.5 0RF albuterol sulfate [ProAir HFA] 90 mcg/actuation HFA aerosol inhaler 2 puff inhalation Q4-6H PRN (Reason: shortness of breath or wheezing) Qty: 8.5 0RF amoxicillin-pot clavulanate 875-125 mg tablet 1 tab PO BID 5 Days Qty: 10 0RF penicillin V potassium 500 mg tablet 500 mg PO BID 10 Days Qty: 20 0RF acetaminophen 500 mg capsule 500 mg PO Q4-6H PRN (Reason: fever) Qty: 30 0RF ibuprofen 800 mg tablet 800 mg PO Q6H PRN (Reason: pain) Qty: 30 0RF azithromycin [Zithromax] 250 mg tablet 250 mg PO DAILY Qty: 6 0RF Rx Instructions: 250 mg orally; take 2 tablets day 1 1 tablet day 2 through 5 Referrals: Ramon Godwin MD [Primary Care Provider] - Print Language: Romansh
[2024-01-11 14:49] VITALS: BP 119/64; PULSE 87; RESP 20; TEMP 36.6; O2SAT 97
[2024-01-11 16:48] VITALS: BP 129/58; PULSE 98; RESP 17; TEMP 37.7; O2SAT 97
[2024-01-11 17:40] VITALS: BP 129/58; PULSE 98; RESP 17; TEMP 37.7; O2SAT 97
== END 2024-01-11 17:40 | disposition home or self-care (01) ==
PROVIDERS: Emergency Provider Emergency Medicine; PCP Internal Medicine
DX: S06.0X0A Concussion without loss of consciousness, initial encounter (principal); S63.502A Unspecified sprain of left wrist, initial encounter; M54.2 Cervicalgia; R51.9 Headache, unspecified; M25.532 Pain in left wrist; W01.10XA Fall on same level from slipping, tripping and stumbling with subsequent striking against unspecified object, initial encounter; Y93.9 Activity, unspecified; Y92.9 Unspecified place or not applicable; Y99.8 Other external cause status
CPT/HCPCS: 70450; 72125; 73110; 73130; 99283

== ENCOUNTER 2024-01-31 17:29 | Inpatient (IN) | payer OTHER, SELFPAY ==
--- NOTE | 2024-01-31 | ECG_ITS ---
Test Reason : MED CLEAR Blood Pressure : / mmHG Vent. Rate : 061 BPM Atrial Rate : 061 BPM P-R Int : 146 ms QRS Dur : 086 ms QT Int : 358 ms P-R-T Axes : 055 -05 -08 degrees QTc Int : 360 ms Normal sinus rhythm Normal ECG When compared with ECG of 03-JAN-2024 20:35, No significant change was found Referred By: Generic ED Physician Electronically Signed By:SEPIDEH GAVIRIA MD
[2024-01-31 17:54] VITALS: BP 126/69; BP 126/80; PULSE 64; PULSE 70; RESP 18; TEMP 36.9; O2SAT 94; O2SAT 98; BMI 38.6
--- NOTE | 2024-01-31 18:10 | MHC.CARE ---
T/W completed Consult call to [facility] Crisis at 6:10PM. [facility] Crisis reports the following: Pt was not assessed by [facility] however they did receive a call earlier today from somebody at [facility] expressing concern due to hx of pt suicide attempts and flat affect. Caller reported concerns that pt had given another student a detailed note stating he was going to harm himself with a gun and caller noted they were unsure if pt had means/access to weapons. [facility] Crisis also reports caller noted concerns of history of violent behavior. [facility] Crisis noted they did not have any clinicians available to send out to [facility], and when they did have a clinician available, [facility] had stated they already had him ambulated to the ER.
[2024-01-31 18:20] LABS: MANUAL DIFF FLAG NO
[2024-01-31 18:21] LABS: Basophils Percent Auto 0.2 % (0-2); Eosinophils Absolute Auto 0.1 X10*3/uL (0.0-0.4); Eosinophils Percent Auto 1.5 % (0-4); Hematocrit 49.1 % (42.0-52.0); Hemoglobin 17.2 g/dl (14.0-18.0); Imm Gran Abs Auto 0.02 X10*3/uL (0.00-0.03); Imm Gran Pct Auto 0.2 % (0.0-0.4); Lymphocytes Percent Auto 25.1 % (20-40); Mean Corpuscular Hemoglobin 29.4 pg (27.0-33.0); Mean Corpuscular Volume 83.8 fL (80.0-98.0); Mean Platelet Volume 10.1 fL (9.4-12.4); Monocytes Absolute Auto 0.5 X10*3/uL (0.1-1.2); Monocytes Percent Auto 5.7 % (2-11); Neutrophils Absolute Auto 5.5 x10*3/uL (2.0-8.3); Neutrophils Percent Auto 67.3 % (45-73); Platelet Count 240 X10*3/uL (160-400); Red Blood Count 5.86 X10*6/uL (4.60-5.80); Red Cell Distribution Width 13.1 % (11.0-16.0); White Blood Count 8.1 X10*3/uL (4.8-10.8)
[2024-01-31 18:23] LABS: Appearance Urine Clear; Color Urine Yellow; Glucose Urine UA Negative (Negative); Leukocyte Esterase Urine Negative (Negative); Nitrite Urine Negative (Negative); PH 7.5 (5.0-9.0); Urine Blood Negative (Negative); Urine Ketones Negative (Negative); Urine Protein Negative (Neg-Trace)
--- NOTE | 2024-01-31 18:24 | PC.NURSE ---
pt a&ox4, vss, denies SI/HI on arrival to ED - pt brought in on section 12 for making SI/HI statements, see triage note. pt changed over belonging and belongings secured. pt calm and cooperative w plan of care re medical clearance and CARE team eval. 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 med rec completed w pt. pt pending ED provider.
[2024-01-31 18:32] LABS: Amphetamine Screen Urine Not Detected (Not Detect); Barbiturates, Urine Not Detected (Not Detect); Benzodiazepines Screen Urine Not Detected (Not Detect); Buprenorphine Scr Not Detected (Not Detect); Cannabinoid Screen Urine Not Detected (Not Detect); Cocaine Screen Urine Not Detected (Not Detect); Fentanyl, urine Not Detected (Not Detect); Methadone Screen, Urine Not Detected (Not Detect); Opiate Screen Urine Not Detected (Not Detect); Oxycodone Screen Urine Not Detected (Not Detect); Phencyclidine Screen Urine Not Detected (Not Detect)
[2024-01-31 18:37] LABS: Acetaminophen LAB < 3 mcg/mL (<30); Salicylate < 5.0 mg/dL (15-30)
[2024-01-31 18:38] LABS: Alanine Aminotransferase 21 U/L (0-40); Albumin Level 4.4 g/dL (3.5-5.0); Alkaline Phosphatase 117 U/L (39-117); Anion Gap 16 (12-20); Aspartate Amino Transferase 18 U/L (5-37); Bilirubin Total 1.4 mg/dL (0.0-1.0); Blood Urea Nitrogen 16 mg/dL (9-16); Calcium 9.6 mg/dL (8.4-10.2); Carbon Dioxide 22 mmol/L (22-29); Chloride 109 mmol/L (96-108); Creatinine Clr Calc Pharmacy 167.7; Estimated Glomerular Filt Rate > 60; Ethanol < 10 mg/dL; Glucose Random 93 mg/dL (60-115); Potassium 3.7 mmol/L (3.3-5.1); Sodium 143 mmol/L (135-145)
--- NOTE | 2024-01-31 18:56 | ED.PSYCH ---
HPI - Psych General Chief Complaint: Psychiatric Symptoms Stated Complaint: Crisis, threatening HI/SI Time Seen by Provider: 01/31/24 18:56 Source: patient, EMS and RN notes reviewed Mode of arrival: EMS Limitations: no limitations History of Present Illness ED Provider: Daysi GARRETT Narrative: Patient is a 23-year-old male presenting to the emergency department from [employer] after making suicidal and homicidal statements. Patient admits to making those statements but is now denying suicidal or homicidal ideation and states that he was upset and ?vented to the wrong person. ? Reports he has not been sleeping well at [employer] and has been drinking an excessive amount of caffeine. 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 MD complaint: suicidal ideation and homicidal ideation Onset (ago): minute(s) Associated symptoms: denies other symptoms Treatments prior to arrival: other (arrived with PD) Related Data Home Medications ?Medication ?Instructions ?Recorded ?Confirmed fluticasone propionate 230 2 puff inhalation BID 01/31/24 01/31/24 mcg-salmeterol 21 mcg/actuation HFA inhaler (Advair HFA) Allergies Allergy/AdvReac Type Severity Reaction Status Date / Time amphetamine [From Adderall] Allergy Intermediate Chills Verified 01/31/24 18:01 dextroamphetamine Allergy Intermediate Chills Verified 01/31/24 18:01 [From Adderall] aripiprazole [From Abilify] AdvReac Severe Anaphylaxis Verified 01/31/24 18:01 Review of Systems Review of Systems: As per HPI. Yes all other systems are reviewed and are negative Constitutional: Constitutional: Reports as per HPI [facility] Social History Social History Alcohol intake: never Patient Tobacco Use Status: Former Tobacco user Smoked in Last 30 Days: Yes Use of substances other than those prescribed or required for medical reasons: No Substance Use Type: Marijuana Advance Directives: No Advance Directives Information Provided: No Do you have a plan to hurt others: High Lethality and Specific Physical Exam Vital Signs: Vital Signs: Last Vital Signs Temp 97.8 F 02/01/24 06:42 Pulse 79 02/01/24 06:42 Resp 16 02/01/24 06:42 BP 129/70 02/01/24 06:42 Pulse Ox 97 02/01/24 06:42 O2 Del Method Room Air 02/01/24 06:42 BMI result Body Mass Index 38.6 Vital signs have been reviewed and appear to be correct. Blood pressure normal. Heart rate normal. Respiratory rate normal. Temperature normal. Oxygen saturation normal. Const: General: cooperative, healthy appearing and no acute distress Orientation/consciousness: oriented to person, oriented to place, oriented to time and patient oriented x3 Limitations: no limitations HEENT: Head: Yes normocephalic and Yes atraumatic Ears: external ears normal General nose exam: Normal external nose present Face and sinus: Yes face symmetric Mouth: oropharynx normal and moist mucous membranes Throat: Yes uvula midline Eyes: Pupils: Equal, round and reactive pupils present Neck: Neck: Yes normal visual inspection and Yes supple Resp: Effort & Inspection: normal respiratory effort and able to speak in complete sentences Auscultation: clear to auscultation bilaterally Cardio: Rate: regular rate Rhythm: regular rhythm Heart sounds: S1 normal heart sound present and S2 normal heart sound present GI: Palpation (GI): Soft to palpation and nontender Auscultation: normoactive bowel sounds : General: Yes no CVA tenderness Back/Spine/Pelvis: Back: no CVA tenderness Skin: General skin exam: elasticity normal and turgor normal Neuro: General: oriented to person, oriented to place, oriented to time, patient oriented x3, moves all extremities, no focal motor deficits and CN's II-XI intact bilaterally Cranial nerves: Yes Equal, round and reactive pupils present Cognition (Neuro): normal cognition Extrem: General: Yes full ROM, Yes no pedal edema and Yes no calf tenderness Psych: Appearance: grossly normal Mental Status: mental status grossly normal Speech and movement: Pressured speech present Affect: normal affect Attitude: cooperative Thought process: Normal thought process present Thought content: suicidality, no homicidality and no hallucinations Course Reevaluation(s) Reevaluation #1: Continue physician observation, no acute events overnight, patient is inpatient bed search. Time: 08:56 Medical Decision Making Medical Decision Making MDM Narrative: Patient is a 23-year-old male presenting to the emergency department from [employer] after making suicidal and homicidal statements. On exam patient is awake, A+Ox3, VS WNL, afebrile, normal neurological exam without focal deficits, physical exam findings as above. Given reported symptoms and physical exam findings, initial differential includes depression, anxiety, suicidal ideation, homicidal ideation. Labs grossly within normal limits. Urinalysis is without evidence of infection. Urine drug screen negative. Ethanol negative. Patient placed on physician observation pending care team evaluation. Differential Diagnosis Differential Diagnoses: The differential diagnosis associated with the presentation includes As per MDM. Admission/Observation Consideration of admission/observation: Escalation of care including admission/observation considered Consult Healthcare Provider Management of the patient was discussed with: Behavioral Health Provider Lab Data [facility] Lab Attestation statement: I reviewed the patient's lab results. As per MDM. 01/31/24 18:15 01/31/24 18:15 Labs: Lab Results 01/31/24 01/31/24 Range/Units 18:05 18:15 WBC 8.1 (4.8-10.8) X10*3/uL RBC 5.86 H (4.60-5.80) X10*6/uL Hgb 17.2 (14.0-18.0) g/dl Hct 49.1 (42.0-52.0) % MCV 83.8 (80.0-98.0) fL MCH 29.4 (27.0-33.0) pg MCHC 35.0 (31.0-36.0) g/dl RDW 13.1 (11.0-16.0) % Plt Count 240 (160-400) X10*3/uL MPV 10.1 (9.4-12.4) fL Immature Gran % (Auto) 0.2 (0.0-0.4) % Neut % (Auto) 67.3 (45-73) % Lymph % (Auto) 25.1 (20-40) % [place] % (Auto) 5.7 (2-11) % Eos % (Auto) 1.5 (0-4) % Baso % (Auto) 0.2 (0-2) % Lymph # (Auto) 2.0 (1.2-4.9) X10*3/uL [place] # (Auto) 0.5 (0.1-1.2) X10*3/uL Eos # (Auto) 0.1 (0.0-0.4) X10*3/uL Baso # (Auto) 0.0 (0.0-0.2) X10*3/uL Abs Immat Gran (auto) 0.02 (0.00-0.03) X10*3/uL Absolute Neuts (auto) 5.5 (2.0-8.3) x10*3/uL Absolute Nucleated RBC 0.000 (0.0-0.012) X10*3/uL Nucleated RBC % (auto) 0.0 (0.0-0.2) /100WBC Sodium 143 (135-145) mmol/L Potassium 3.7 (3.3-5.1) mmol/L Chloride 109 H (96-108) mmol/L Carbon Dioxide 22 (22-29) mmol/L Anion Gap 16 (12-20) BUN 16 (9-16) mg/dL Creatinine 0.96 (0.5-1.4) mg/dL Estim Creat Clear Calc 167.7 Estimated GFR > 60 Random Glucose 93 (60-115) mg/dL Calcium 9.6 (8.4-10.2) mg/dL Total Bilirubin 1.4 H (0.0-1.0) mg/dL AST 18 (5-37) U/L ALT 21 (0-40) U/L Alkaline Phosphatase 117 (39-117) U/L Total Protein 7.0 (6.5-8.0) g/dL Albumin 4.4 (3.5-5.0) g/dL Urine Color Yellow Urine Appearance Clear Urine pH 7.5 (5.0-9.0) Ur Specific [place] 1.020 (1.005-1.025) Urine Protein Negative (Neg-Trace) mg/dL Urine Glucose (UA) Negative (Negative) mg/dL Urine Ketones Negative (Negative) mg/dL Urine Blood Negative (Negative) Urine Nitrite Negative (Negative) Ur Leukocyte Esterase Negative (Negative) Salicylates < 5.0 L (15-30) mg/dL Urine Opiates Screen Not Detected (Not Detect) Ur Buprenorphine Scrn Not Detected (Not Detect) ng/mL Ur Oxycodone Screen Not Detected (Not Detect) ng/mL Urine Methadone Screen Not Detected (Not Detect) ng/mL Urine Fentanyl Screen Not Detected (Not Detect) Acetaminophen < 3 (<30) mcg/mL Ur Barbiturates Screen Not Detected (Not Detect) Ur Phencyclidine Scrn Not Detected (Not Detect) Ur Amphetamines Screen Not Detected (Not Detect) U Benzodiazepines Scrn Not Detected (Not Detect) Urine Cocaine Screen Not Detected (Not Detect) U Marijuana (THC) Screen Not Detected (Not Detect) Ethyl Alcohol < 10 mg/dL External Record Review External record reviewed: Inpatient record, Office record and Outpatient record Discharge Plan Discharge Clinical Impression: Suicidal ideation, Homicidal ideation Patient Disposition: Still a Patient Prescriptions: No Action fluticasone propion-salmeterol [Advair HFA] 230-21 mcg/actuation HFA aerosol inhaler 2 puff inhalation BID Interventions: [place]-Suicide Risk Severity Scale Last Done: 01/31/24 18:19 Print Language: Pakistani
--- NOTE | 2024-02-01 06:31 | PC.NURSE ---
Patient is alert and oriented x3, calm and cooperative with care, denies SI/HI at this time, VSS.
[2024-02-01 06:42] VITALS: BP 129/70; PULSE 79; RESP 16; TEMP 36.6; O2SAT 97
--- NOTE | 2024-02-01 07:16 | PC.NURSE ---
Assumed care of patient at 0645, patient appears to be sleeping, respirations even and unlabored, no apparent distress noted. Continue plan of care for inpatient bedsearch at this time
--- NOTE | 2024-02-01 08:27 | PC.NURSE ---
This RN had a conversation with patient regarding inpatient status and situation at hand. Patient verbalizes that he does not feel suicidal or homicidal, he also explains that he felt like it is better to be angry and have a verbal outburst rather than be violent. Patient relays to this RN that he has many supports at [employer] including his , adoptive children, and friends. He reports that he understands that people want him to get treatment but he also reports that he feels like he has no need for treatment as he is calm and cooperative with no plan/intention to harm himself or others.
[2024-02-01] MEDS: Fluticasone/Vilanterol 200/25 BLST.W.DEV 1 PUFF INHALE (09:15)
--- NOTE | 2024-02-01 11:34 | MHC.CARE ---
Patient's mother calls. She reports he has no access to weapons and shares that he has made grandiose statements/ threats such as this in the past, she does not believe he will act on them. She reports that he has refused to take medication for years and refused help in general. She shares that any minor stressor is met with a big reaction/ response. She shares that he usually comes home for the weekend, and she's also concerned that he will lose his programming. 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 She also shares that she was told his girlfriend is . She is unclear if patient is aware but shares that patient's father left when patient's mother was with him and was in and out of patient's life during childhood. She wonders if he is aware his GF is as his statements/ presentation may be attributable to this.
[2024-02-01 13:42] VITALS: BMI 31.6
--- NOTE | 2024-02-01 13:43 | PC.NURSE ---
Alejandro arrival on unit at 1333, skin check completed by TW and another RN. Pt calm and cooperative
[2024-02-01 13:44] VITALS: BP 125/60; PULSE 66; RESP 18; TEMP 36.8; O2SAT 97
[2024-02-01 13:45] VITALS: BMI 31.5
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
--- NOTE | 2024-02-01 15:56 | PC.ADMIT ---
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 Legals signed. Pt brought into ED from [facility] d/t making SI & HI statements to another individual at the residential program. Pt stated he was just venting and that he vented to the wrong person . When t/w asked Pt what was said Pt stated I don't remember, that is how insignificant it was . Pt is flat, guarded, and angry that he was admitted inpatient. 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 Pt does have a history of trauma, two suicide attempts back in 2019 & 2021 per patient. Safety tool & treatment plan completed. Pt is a smoker. Smokes 7 cigarettes/day. Smoking consult placed. Pt declined nicotine replacement. Pt Tox screen negative. Denies alcohol use. Pt oriented to unit.
--- NOTE | 2024-02-01 16:18 | PC.NURSE ---
Pt signed a 3-day notice. Up on Monday 02/05.
[2024-02-01 19:49] VITALS: BP 130/61; PULSE 66; RESP 16; TEMP 36.8; O2SAT 96
[2024-02-02 07:51] LABS: Estimated Average Glucose 85 mg/dL; Hemoglobin A1c % 4.6 % (<6.0)
[2024-02-02 08:00] VITALS: BP 121/58; PULSE 56; RESP 15; TEMP 36.8; O2SAT 95
[2024-02-02 08:02] LABS: Cholesterol 136 mg/dL (<200); HDL Cholesterol 35 mg/dL (>40); LDL Cholesterol Calculated 72 mg/dL (<100); Triglycerides 146 mg/dL (<150)
--- NOTE | 2024-02-02 08:17 | P.PNPSI_ITS ---
Subjective Subjective Date of Service: 02/02/24 Reason For Visit: Crisis, threatening HI/SI Interim History: met with patient. Discussed with Nursing. Patient adamant he was simply venting prior to admission and does not want to hurt himself or anybody else. He does presents as all be related and difficult to follow in thought form at times. For example spoke about missing his and 2 adopted children aged 16 and 20. patient acknowledged this would mean him being 2 years older that 1 of his adopted children. Also reported his miscarried 3 weeks ago and stated God will Bless us again if the deem us worthy of offspring , then later clarified he was not yet and they were not living together and had been in a relationship for 3 months. It was very difficult to get clarification on follow-up questions. Stated he does not want medications as he does not need them. Side effects from medications: No Attending Groups: Intermittent Review of Systems Acute medical concerns: No Review of Systems Review of Systems Yes all other systems are reviewed and are negative Mental Status Exam Mental Status Exam Narrative: adequately dressed and groomed. cooperative. no PMA/PMR. speech incr rate and amount, nml loudness, tone, latency. Oddly related. Is difficult to follow in thought form at times purely regarding content, versus speed of thought. Affect restricted. Denies depression. Denies SI or HI. Denies hallucinations. Diagnostics Vital Signs (24Hr): Vital Signs - 24 hr 02/01/24 13:44 02/01/24 19:49 Temperature 98.3 F 98.2 F Pulse Rate 66 66 Respiratory Rate 18 16 Blood Pressure 125/60 130/61 Pulse Oximetry 97 96 Oxygen Delivery Method Room Air Room Air BMI result Body Mass Index 31.5 Labs 01/31/24 18:15 01/31/24 18:15 Labs: Laboratory Results - last 48 hr 01/31/24 01/31/24 02/02/24 18:05 18:15 07:22 WBC 8.1 RBC 5.86 H Hgb 17.2 Hct 49.1 MCV 83.8 MCH 29.4 MCHC 35.0 RDW 13.1 Plt Count 240 MPV 10.1 Immature Gran % (Auto) 0.2 Neut % (Auto) 67.3 Lymph % (Auto) 25.1 [place] % (Auto) 5.7 Eos % (Auto) 1.5 Baso % (Auto) 0.2 Lymph # (Auto) 2.0 [place] # (Auto) 0.5 Eos # (Auto) 0.1 Baso # (Auto) 0.0 Abs Immat Gran (auto) 0.02 Absolute Neuts (auto) 5.5 Absolute Nucleated RBC 0.000 Nucleated RBC % (auto) 0.0 Sodium 143 Potassium 3.7 Chloride 109 H Carbon Dioxide 22 Anion Gap 16 BUN 16 Creatinine 0.96 Estim Creat Clear Calc 167.7 Estimated GFR > 60 Random Glucose 93 Estimat Average Glucose 85 Hemoglobin A1c % 4.6 Calcium 9.6 Total Bilirubin 1.4 H AST 18 ALT 21 Alkaline Phosphatase 117 Total Protein 7.0 Albumin 4.4 Triglycerides 146 Cholesterol 136 LDL Cholesterol, Calc 72 HDL Cholesterol 35 L Urine Color Yellow Urine Appearance Clear Urine pH 7.5 Ur Specific [place] 1.020 Urine Protein Negative Urine Glucose (UA) Negative Urine Ketones Negative Urine Blood Negative Urine Nitrite Negative Ur Leukocyte Esterase Negative Salicylates < 5.0 L Urine Opiates Screen Not Detected Ur Buprenorphine Scrn Not Detected Ur Oxycodone Screen Not Detected Urine Methadone Screen Not Detected Urine Fentanyl Screen Not Detected Acetaminophen < 3 Ur Barbiturates Screen Not Detected Ur Phencyclidine Scrn Not Detected Ur Amphetamines Screen Not Detected U Benzodiazepines Scrn Not Detected Urine Cocaine Screen Not Detected U Marijuana (THC) Screen Not Detected Ethyl Alcohol < 10 Medications Medications Current Medications Acetaminophen (Acetaminophen 325 Mg Tablet) 650 mg PO Q6H PRN PRN Reason: Headache/Pain Mild Scale (1-3) Al Hydroxide/Mg Hydroxide (Magnesium Hydrox/Alum Hydrox 30 Ml Oral.Susp) 30 ml PO Q6H PRN PRN Reason: Heartburn/Nausea Fluticasone/Vilanterol (Fluticasone/Vilanterol 200/25 Blst.W.Dev) 1 puff INHALE RDAILY JOSEPH Last Admin: 02/01/24 09:15 Dose: 1 puff Hydroxyzine HCl (Hydroxyzine Hcl 25 Mg Tablet) 25 mg PO Q6H PRN PRN Reason: Anxiety Magnesium Hydroxide (Milk Of Magnesia 30 Ml Oral.Susp) 30 ml PO DAILY PRN PRN Reason: Constipation Nicotine Polacrilex (Nicotine Polacrilex 2 Mg Gum) 4 mg BUCCAL Q2H PRN PRN Reason: Nicotine Cravings Trazodone HCl (Trazodone Hcl 50 Mg Tablet) 50 mg PO BEDTIME MRX1 PRN PRN Reason: Insomnia Allergies Allergies Allergy/AdvReac Type Severity Reaction Status Date / Time amphetamine [From Adderall] Allergy Intermediate Chills Verified 01/31/24 18:01 dextroamphetamine Allergy Intermediate Chills Verified 01/31/24 18:01 [From Adderall] aripiprazole [From Abilify] AdvReac Severe Anaphylaxis Verified 01/31/24 18:01 Assessment & Plan Assessment & Plan (1) Mood disorder: Status: Acute Code(s): F39 - Unspecified mood [affective] disorder Assessment and Plan: R/O bipolar disorder Plan declining medication or referrals. states he has a mental health counselor at [facility]. he would like to return there and continue to work with those people. observe for safety and stability. 02/02/2024: No changes. Three-day notice expires on 02/06/2024 Reason for continued inpatient stay Substantial Risk for: harm to self Time Spent With Patient Time: Total time managing care of this patient today ____ minutes.
[2024-02-02 08:18] LABS: Thyroid Stimulating Hormone 0.48 uIU/mL (0.32-4.0)
[2024-02-02 08:31] LABS: Folate 5.9 ng/mL (> or = 4.0); Vitamin B12 250 pg/mL (200-900)
[2024-02-02] MEDS: Fluticasone/Vilanterol 200/25 BLST.W.DEV 1 PUFF INHALE (10:39)
[2024-02-02 19:40] VITALS: BP 115/56; PULSE 63; RESP 16; TEMP 36.8; O2SAT 96
[2024-02-03 07:20] VITALS: BP 124/75; PULSE 66; RESP 20; TEMP 36.4; O2SAT 99
[2024-02-03 08:00] VITALS: BP 124/75; PULSE 66; RESP 18; TEMP 36.4; O2SAT 99
[2024-02-03] MEDS: Fluticasone/Vilanterol 200/25 BLST.W.DEV 1 PUFF INHALE (08:19)
[2024-02-03] MEDS: Acetaminophen 325 MG TABLET 650 MG PO ×2 (08:19→21:48)
--- NOTE | 2024-02-03 10:31 | P.PNPSI_ITS ---
Subjective Subjective Date of Service: 02/03/24 Reason For Visit: Crisis, threatening HI/SI Interim History: Continues to present as oddly related and and difficult to follow in thought form at times. Talks about getting back to [employer] and being with his and children- see yesterdays note on same. Stated he does not want medications as he does not need them. Otherwise in the milieu, reading, attending groups, pleasant etc.. Medication Compliance: No Side effects from medications: No Attending Groups: Yes Review of Systems Acute medical concerns: No Review of Systems Review of Systems Yes all other systems are reviewed and are negative Mental Status Exam Mental Status Exam Narrative: adequately dressed and groomed. cooperative. no PMA/PMR. speech incr rate and amount, nml loudness, tone, latency. Oddly related. Is difficult to follow in thought form at times purely regarding content, versus speed of thought. Affect restricted. Denies depression. Denies SI or HI. Denies hallucinations. Diagnostics Vital Signs (24Hr): Vital Signs - 24 hr 02/02/24 19:40 02/03/24 07:20 Temperature 98.2 F 97.5 F Pulse Rate 63 66 Respiratory Rate 16 20 Blood Pressure 115/56 L 124/75 Pulse Oximetry 96 99 Oxygen Delivery Method Room Air Room Air BMI result Body Mass Index 31.5 Labs 01/31/24 18:15 01/31/24 18:15 Labs: Laboratory Results - last 48 hr 02/02/24 07:22 Estimat Average Glucose 85 Hemoglobin A1c % 4.6 Triglycerides 146 Cholesterol 136 LDL Cholesterol, Calc 72 HDL Cholesterol 35 L Vitamin B12 250 Folate 5.9 TSH 0.48 Free T4 0.90 Medications Medications Current Medications Acetaminophen (Acetaminophen 325 Mg Tablet) 650 mg PO Q6H PRN PRN Reason: Headache/Pain Mild Scale (1-3) Last Admin: 02/03/24 08:19 Dose: 650 mg Al Hydroxide/Mg Hydroxide (Magnesium Hydrox/Alum Hydrox 30 Ml Oral.Susp) 30 ml PO Q6H PRN PRN Reason: Heartburn/Nausea Fluticasone/Vilanterol (Fluticasone/Vilanterol 200/25 Blst.W.Dev) 1 puff INHALE RDAILY JOSEPH Last Admin: 02/03/24 08:19 Dose: 1 puff Hydroxyzine HCl (Hydroxyzine Hcl 25 Mg Tablet) 25 mg PO Q6H PRN PRN Reason: Anxiety Magnesium Hydroxide (Milk Of Magnesia 30 Ml Oral.Susp) 30 ml PO DAILY PRN PRN Reason: Constipation Nicotine Polacrilex (Nicotine Polacrilex 2 Mg Gum) 4 mg BUCCAL Q2H PRN PRN Reason: Nicotine Cravings Trazodone HCl (Trazodone Hcl 50 Mg Tablet) 50 mg PO BEDTIME MRX1 PRN PRN Reason: Insomnia Allergies Allergies Allergy/AdvReac Type Severity Reaction Status Date / Time amphetamine [From Adderall] Allergy Intermediate Chills Verified 01/31/24 18:01 dextroamphetamine Allergy Intermediate Chills Verified 01/31/24 18:01 [From Adderall] aripiprazole [From Abilify] AdvReac Severe Anaphylaxis Verified 01/31/24 18:01 Assessment & Plan Assessment & Plan (1) Mood disorder: Status: Acute Code(s): F39 - Unspecified mood [affective] disorder Assessment and Plan: R/O bipolar disorder Plan declining medication or referrals. states he has a mental health counselor at [facility]. he would like to return there and continue to work with those people. observe for safety and stability. 02/03/2024: No changes. Three-day notice expires on 02/06/2024 Reason for continued inpatient stay Substantial Risk for: harm to self Time Spent With Patient Time: Total time managing care of this patient today ____ minutes.
[2024-02-03 20:00] VITALS: BP 115/62; PULSE 54; RESP 16; TEMP 36.5; O2SAT 96
[2024-02-03] MEDS: Ibuprofen 800 MG TABLET PO (22:03)
[2024-02-04 07:40] VITALS: BP 121/58; PULSE 61; RESP 14; TEMP 36.6; O2SAT 98
[2024-02-04] MEDS: Fluticasone/Vilanterol 200/25 BLST.W.DEV 1 PUFF INHALE (08:09)
[2024-02-04 20:00] VITALS: BP 112/55; PULSE 64; RESP 16; TEMP 36.6; O2SAT 97
--- NOTE | 2024-02-04 22:01 | HO.PSYCHPN ---
Subjective Subjective Date of Service: 02/04/24 Reason For Visit: Crisis, threatening HI/SI Interim History: calm, cooperative. intense. stereotyped phrases. asking for discharge, frustrated at not being discharged. feels he is not a danger to himself or anyone else. denies he has a gun or any intention to harm himself or anyone else. can't recall the medication he has been on in the past, reports he was seen at [facility] and got his meds filled at [facility]. per staff, 3-day up wed. slept 6 hours. c/o high anx/dep. telling stories about and children, who are actually peers at [employer]. delusional. declines psych meds. Mental Status Exam Mental Status Exam Narrative: adequately dressed and groomed. cooperative. no PMA/PMR. speech incr rate and amount, nml loudness, tone, latency. thoughts linear in response to questions, spontaneously tangential. affect constricted, normo-intense, non-labile. mood irritable. denies SI/HI/AVH. Diagnostics Vital Signs (24Hr): Vital Signs - 24 hr 02/04/24 07:40 02/04/24 20:00 Temperature 97.8 F 97.9 F Pulse Rate 61 64 Respiratory Rate 14 16 Blood Pressure 121/58 L 112/55 L Pulse Oximetry 98 97 Oxygen Delivery Method Room Air Room Air BMI result Body Mass Index 31.5 Labs 01/31/24 18:15 01/31/24 18:15 Medications Medications Current Medications Acetaminophen (Acetaminophen 325 Mg Tablet) 650 mg PO Q6H PRN PRN Reason: Headache/Pain Mild Scale (1-3) Last Admin: 02/03/24 21:48 Dose: 650 mg Al Hydroxide/Mg Hydroxide (Magnesium Hydrox/Alum Hydrox 30 Ml Oral.Susp) 30 ml PO Q6H PRN PRN Reason: Heartburn/Nausea Fluticasone/Vilanterol (Fluticasone/Vilanterol 200/25 Blst.W.Dev) 1 puff INHALE RDAILY JOSEPH Last Admin: 02/04/24 08:09 Dose: 1 puff Hydroxyzine HCl (Hydroxyzine Hcl 25 Mg Tablet) 25 mg PO Q6H PRN PRN Reason: Anxiety Magnesium Hydroxide (Milk Of Magnesia 30 Ml Oral.Susp) 30 ml PO DAILY PRN PRN Reason: Constipation Nicotine Polacrilex (Nicotine Polacrilex 2 Mg Gum) 4 mg BUCCAL Q2H PRN PRN Reason: Nicotine Cravings Trazodone HCl (Trazodone Hcl 50 Mg Tablet) 50 mg PO BEDTIME MRX1 PRN PRN Reason: Insomnia Allergies Allergies Allergy/AdvReac Type Severity Reaction Status Date / Time amphetamine [From Adderall] Allergy Intermediate Chills Verified 01/31/24 18:01 dextroamphetamine Allergy Intermediate Chills Verified 01/31/24 18:01 [From Adderall] aripiprazole [From Abilify] AdvReac Severe Anaphylaxis Verified 01/31/24 18:01 Assessment & Plan Assessment & Plan (1) Mood disorder: Status: Acute Code(s): F39 - Unspecified mood [affective] disorder Assessment and Plan: R/O bipolar disorder Plan declining medication or referrals. states he has a mental health counselor at [facility]. he would like to return there and continue to work with those people. observe for safety and stability. 02/03/2024: No changes. Three-day notice expires on 02/06/202402/03: declining medications. remains delusional. denies safety concerns. offer anti-psychotics. Reason for continued inpatient stay Substantial Risk for: harm to self and harm to others Time Spent With Patient Time: Total time managing care of this patient today ____ minutes.
[2024-02-05] MEDS: Ibuprofen 800 MG TABLET PO ×2 (03:54→19:21)
[2024-02-05 08:00] VITALS: BP 136/58; PULSE 61; RESP 16; TEMP 36.9; O2SAT 98
[2024-02-05] MEDS: Fluticasone/Vilanterol 200/25 BLST.W.DEV 1 PUFF INHALE (08:52)
[2024-02-05] MEDS: Acetaminophen 325 MG TABLET 650 MG PO (10:22)
--- NOTE | 2024-02-05 10:23 | PC.NURSE ---
Patient complained of 25/10 for headache pain and requested Tylenol. Patient re-educated on pain scale.
--- NOTE | 2024-02-05 15:13 | HO.PSYCHPN ---
Subjective Subjective Date of Service: 02/05/24 Reason For Visit: Crisis, threatening HI/SI Interim History: calm, cooperative. thinking logically through his predicament. planning to live with his mother for several months pending ability to return to [employer] (12 week medical leave). aware he will need to be in mental health treatment for that period. educated re medication, declines to take it. per staff, 3-day up tomorrow. agitated, labile, pacing yesterday. watching TV. difficult call with mother. refused meds. slept 7 hours. Mental Status Exam Mental Status Exam Narrative: adequately dressed and groomed. cooperative. no PMA/PMR. speech nml rate and amount, nml loudness, tone, latency. thoughts linear. affect constricted, normo-intense, non-labile. mood not assessed. no SI/HI/AVH expressed. Diagnostics Vital Signs (24Hr): Vital Signs - 24 hr 02/04/24 20:00 02/05/24 08:00 Temperature 97.9 F 98.4 F Pulse Rate 64 61 Respiratory Rate 16 16 Blood Pressure 112/55 L 136/58 L Pulse Oximetry 97 98 Oxygen Delivery Method Room Air Room Air BMI result Body Mass Index 31.5 Labs 01/31/24 18:15 01/31/24 18:15 Medications Medications Current Medications Acetaminophen (Acetaminophen 325 Mg Tablet) 650 mg PO Q6H PRN PRN Reason: Headache/Pain Mild Scale (1-3) Last Admin: 02/05/24 10:22 Dose: 650 mg Al Hydroxide/Mg Hydroxide (Magnesium Hydrox/Alum Hydrox 30 Ml Oral.Susp) 30 ml PO Q6H PRN PRN Reason: Heartburn/Nausea Fluticasone/Vilanterol (Fluticasone/Vilanterol 200/25 Blst.W.Dev) 1 puff INHALE RDAILY JOSEPH Last Admin: 02/05/24 08:52 Dose: 1 puff Hydroxyzine HCl (Hydroxyzine Hcl 25 Mg Tablet) 25 mg PO Q6H PRN PRN Reason: Anxiety Ibuprofen (Ibuprofen 800 Mg Tablet) 800 mg PO Q8H PRN PRN Reason: Pain, Moderate(Pain Scale 4-6) Last Admin: 02/05/24 03:54 Dose: 800 mg Magnesium Hydroxide (Milk Of Magnesia 30 Ml Oral.Susp) 30 ml PO DAILY PRN PRN Reason: Constipation Nicotine Polacrilex (Nicotine Polacrilex 2 Mg Gum) 4 mg BUCCAL Q2H PRN PRN Reason: Nicotine Cravings Olanzapine (Olanzapine 5 Mg Tablet) 5 mg PO BEDTIME JOSEPH Last Admin: 02/04/24 22:45 Dose: Not Given Trazodone HCl (Trazodone Hcl 50 Mg Tablet) 50 mg PO BEDTIME MRX1 PRN PRN Reason: Insomnia Allergies Allergies Allergy/AdvReac Type Severity Reaction Status Date / Time amphetamine [From Adderall] Allergy Intermediate Chills Verified 01/31/24 18:01 dextroamphetamine Allergy Intermediate Chills Verified 01/31/24 18:01 [From Adderall] aripiprazole [From Abilify] AdvReac Severe Anaphylaxis Verified 01/31/24 18:01 Assessment & Plan Assessment & Plan (1) Mood disorder: Status: Acute Code(s): F39 - Unspecified mood [affective] disorder Assessment and Plan: R/O bipolar disorder Plan declining medication or referrals. states he has a mental health counselor at [employer]. he would like to return there and continue to work with those people. observe for safety and stability. 02/03/2024: No changes. Three-day notice expires on 02/06/202402/03: declining medications. remains delusional. denies safety concerns. offer anti-psychotics. 02/04: declined meds last night. 3-day up tomorrow. mother laura rondon [phone], to . likely discharge to mother's home. Reason for continued inpatient stay Substantial Risk for: rapid decompensation Time Spent With Patient Time: Total time managing care of this patient today _35___ minutes.
[2024-02-05 20:00] VITALS: BP 125/57; PULSE 63; RESP 16; TEMP 36.3; O2SAT 98
[2024-02-06 08:00] VITALS: BP 110/68; PULSE 56; RESP 16; TEMP 36.8; O2SAT 97
[2024-02-06] MEDS: Fluticasone/Vilanterol 200/25 BLST.W.DEV 1 PUFF INHALE (08:36)
[2024-02-06] MEDS: Ibuprofen 800 MG TABLET PO (08:36)
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
--- NOTE | 2024-02-06 11:54 | PC.NURSE ---
pt requested ibuprofen for 9/10 head pain, pt re educated on pain scale.
== END 2024-02-06 11:59 | disposition home or self-care (01) | DRG 753 ==
LOC: HO.ED 21:54 → HO.PADLT16 02-01 13:04
PROVIDERS: Admitting Provider Psychiatry & Neurology Psychiatry; Emergency Provider Emergency Medicine Emergency Medical Services; PCP Internal Medicine; Visit Provider Psychiatry & Neurology Psychiatry
DX: F39 Unspecified mood [affective] disorder (principal); R45.851 Suicidal ideations; R45.850 Homicidal ideations; F17.210 Nicotine dependence, cigarettes, uncomplicated; Z71.6 Tobacco abuse counseling; Z79.899 Other long term (current) drug therapy
CPT/HCPCS: 36415; 80053; 80061; 80143; 80179; 80307; 81003; 82607; 82746; 83036; 84439; 84443; 85025; 93005; 99285; S9485

== ENCOUNTER → 2024-01-31 19:41 | Outpatient (BNV) | payer OTHER, SELFPAY | PROVIDERS: Emergency Provider Emergency Medicine Emergency Medical Services; PCP Internal Medicine; Visit Provider Internal Medicine Cardiovascular Disease | DX: Z01.818 Encounter for other preprocedural examination (principal) | CPT/HCPCS: 93010 ==

== ENCOUNTER → 2024-02-01 13:01 | Outpatient (BNV) | payer OTHER, SELFPAY | PROVIDERS: Admitting Provider Psychiatry & Neurology Psychiatry; Emergency Provider Emergency Medicine Emergency Medical Services; PCP Internal Medicine; Visit Provider Psychiatry & Neurology Psychiatry | DX: F39 Unspecified mood [affective] disorder (principal) | CPT/HCPCS: 90792; 99231; 99232; 99239 ==

== ENCOUNTER 2024-12-07 15:52 | Emergency (ER) | payer OTHER, SELFPAY ==
[2024-12-07] VITALS (8 sets, daily range): BP systolic 105–123; BP diastolic 39–60; PULSE 75–98; RESP 13–30; TEMP 36.4–36.7; O2SAT 93–99; BMI 28.0
--- NOTE | ~2024-12-07 | XR_ITS ---
CLINICAL HISTORY: sob 1 view chest x-ray. Comparison: CR/SR - XR CHEST 2V - 09/23/23 08:22 EDT Findings: Normal lung volumes. Lungs are clear. No pneumothorax or pleural effusion. Heart size normal. No passive venous congestion. No midline shift or tracheal deviation. No acute fracture. Impression: 1. No acute cardiopulmonary disease. This document has been electronically signed by: Iggy Mayes MD on 12/07/2024 17:51:15
--- NOTE | 2024-12-07 15:55 | ED_ITS ---
HPI - SOB/Dyspnea General Chief Complaint: Dyspnea Stated Complaint: sob/asthma Time Seen by Provider: 12/07/24 16:04 Related Data Home Medications ?Medication ?Instructions ?Recorded ?Confirmed fluticasone propionate 230 2 puff inhalation BID 01/31/24 01/31/24 mcg-salmeterol 21 mcg/actuation HFA inhaler (Advair HFA) Previous Rx's ?Medication ?Instructions ?Recorded albuterol sulfate 90 mcg/actuation 2 puff inhalation Q4-6H PRN 12/07/24 aerosol inhaler shortness of breath or wheezing #8.5 grams fluticasone propionate 230 2 puff inhalation BID #12 grams 12/07/24 mcg-salmeterol 21 mcg/actuation HFA inhaler (Advair HFA) prednisone 50 mg tablet 50 mg PO DAILY #4 tabs 12/07/24 Allergies Allergy/AdvReac Type Severity Reaction Status Date / Time amphetamine [From Adderall] Allergy Intermediate Chills Verified 12/07/24 15:58 dextroamphetamine Allergy Intermediate Chills Verified 12/07/24 15:58 [From Adderall] aripiprazole [From Abilify] AdvReac Severe Anaphylaxis Verified 12/07/24 15:58 [facility] Past Medical History Medical History (Updated 12/07/24 @ 18:49 by Laura Pimentel MD) Mood disorder Asthma Social History Social History Household Members: Other Household Members Other:: Lives at [facility] Housing: Other Housing Other:: [facility] Alcohol intake: never Patient Tobacco Use Status: Current everyday Tobacco user Tobacco use type: Cigarette Cigarettes Per Day: 7 Years Smoked: 4 Smoked in Last 30 Days: Yes e-Cigarette/Vaping Use: Never Used Second Hand Smoke Exposure: Yes Substance Use Type: Marijuana Advance Directives: No Advance Directives Information Provided: No service: No Sexual orientation: Straight/Heterosexual Physical Exam 2 Vital Signs: Vital Signs: Last Vital Signs Temp 98.0 F 12/07/24 18:57 Pulse 98 12/07/24 18:57 Resp 18 12/07/24 18:57 BP 105/54 L 12/07/24 18:57 Pulse Ox 96 12/07/24 18:57 O2 Del Method Room Air 12/07/24 18:57 BMI result Body Mass Index 28.0 Course Course Course Narrative: This is an RME performed by Jordan Shetty CNP: Additional HPI, ROS, PE not included below will be deferred to primary provider. Patient is a 24-year-old male who presents emergency department for evaluation of shortness of breath and concern for asthma exacerbation. Reports symptom onset 4 weeks ago, ran out of inhaler 3 weeks ago, states he is not able to get a refill due to ?Insurance coverage. Has seen pulmonology through [facility] recently they dont know what's going on with me , patient is concerned this s mor than just asthma, sates he has smoked cigarettes for years, does not believe that is worsening his symptoms. Tachypneic, increased work of breathing, accessory muscle usage, wheezing, bronchospastic cough, no room air hypoxia Plan: Patient brought back to main ED Reevaluation(s) Reevaluation #1: see additional note dated 12/07/[address] Pimentel Medications Administered Discontinued Medications Generic Name Dose Route Start Last Admin Trade Name Longq PRN Reason Stop Dose Admin Albuterol Sulfate 7.5 mg/ 10 mg 12/07/24 16:08 12/07/24 16:14 Albuterol Sulfate 2.5 mg INHALE 12/07/24 16:09 10 mg ONCE ONE Administration Albuterol Sulfate 2 puff 12/07/24 16:25 12/07/24 16:29 Albuterol Sulfate 90 Mcg 8 Gm Inhaler INHALE 12/07/24 16:26 2 puff ONCE ONE Administration Magnesium Sulfate 2 gm in 50 mls @ 150 mls/hr 12/07/24 16:03 12/07/24 17:01 Magnesium Sulfate/H2o IV 12/07/24 16:22 Infused ONCE ONE Infusion Methylprednisolone Sodium Succinate 125 mg 12/07/24 16:03 12/07/24 16:29 Methylprednisolone Sod Succ 125 Mg Vial IVPUSH 12/07/24 16:04 125 mg ONCE ONE Administration Medical Decision Making Lab Data 12/07/24 16:52 12/07/24 16:52 Labs: Lab Results 12/07/24 Range/Units 16:52 WBC 6.1 (4.8-10.8) X10*3/uL RBC 6.14 H (4.60-5.80) X10*6/uL Hgb 18.2 H (14.0-18.0) g/dl Hct 51.0 (42.0-52.0) % MCV 83.1 (80.0-98.0) fL MCH 29.6 (27.0-33.0) pg MCHC 35.7 (31.0-36.0) g/dl RDW 12.9 (11.0-16.0) % Plt Count 216 (160-400) X10*3/uL MPV 10.3 (9.4-12.4) fL Immature Gran % (Auto) 0.2 (0.0-0.4) % Neut % (Auto) 44.4 L (45-73) % Lymph % (Auto) 44.3 H (20-40) % [place] % (Auto) 5.3 (2-11) % Eos % (Auto) 5.5 H (0-4) % Baso % (Auto) 0.3 (0-2) % Lymph # (Auto) 2.7 (1.2-4.9) X10*3/uL [place] # (Auto) 0.3 (0.1-1.2) X10*3/uL Eos # (Auto) 0.3 (0.0-0.4) X10*3/uL Baso # (Auto) 0.0 (0.0-0.2) X10*3/uL Abs Immat Gran (auto) 0.01 (0.00-0.03) X10*3/uL Absolute Neuts (auto) 2.7 (2.0-8.3) x10*3/uL Absolute Nucleated RBC 0.000 (0.0-0.012) X10*3/uL Nucleated RBC % (auto) 0.0 (0.0-0.2) /100WBC Sodium 144 (135-145) mmol/L Potassium 3.9 (3.3-5.1) mmol/L Chloride 104 (96-108) mmol/L Carbon Dioxide 27 (22-29) mmol/L Anion Gap 17 (12-20) BUN 11 (9-16) mg/dL Creatinine 1.14 (0.5-1.4) mg/dL Estim Creat Clear Calc 123.1 Estimated GFR > 60 Random Glucose 100 (60-115) mg/dL Calcium 9.9 (8.4-10.2) mg/dL Total Bilirubin 1.7 H (0.0-1.0) mg/dL AST 26 (5-37) U/L ALT 19 (0-40) U/L Alkaline Phosphatase 92 (39-117) U/L Total Protein 7.2 (6.5-8.0) g/dL Albumin 4.6 (3.5-5.0) g/dL Influenza Type A (PCR) NEGATIVE (Negative) Influenza Type B (PCR) NEGATIVE (Negative) RSV RNA Qual (PCR) NEGATIVE (Negative) SARS-CoV-2 RNA (RT-PCR) NEGATIVE (Negative) Discharge Plan Discharge Clinical Impression: Asthma Patient Disposition: Home, Self-Care Instructions: Asthma (ED) Additional Instructions: Please follow-up with your primary care physician tomorrow. If you have any worsening or new symptoms, please return to the emergency room or call 911 Prescriptions: New fluticasone propion-salmeterol [Advair HFA] 230-21 mcg/actuation HFA aerosol inhaler 2 puff inhalation BID Qty: 12 0RF albuterol sulfate 90 mcg/actuation HFA aerosol inhaler 2 puff inhalation Q4-6H PRN (Reason: shortness of breath or wheezing) Qty: 8.5 0RF prednisone 50 mg tablet 50 mg PO DAILY Qty: 4 0RF No Action fluticasone propion-salmeterol [Advair HFA] 230-21 mcg/actuation HFA aerosol inhaler 2 puff inhalation BID Interventions: ED Discharge Assessment Last Done: 12/07/24 18:57 Discharge Date/Time: 12/07/24 18:58 Print Language: Niuean
--- NOTE | 2024-12-07 15:59 | ECG_ITS ---
Test Reason : Shortness of breath Blood Pressure : */* mmHG Vent. Rate : 84 BPM Atrial Rate : 84 BPM P-R Int : 144 ms QRS Dur : 80 ms QT Int : 342 ms P-R-T Axes : 150 -21 -19 degrees QTcB Int : 404 ms Unusual P axis, possible ectopic atrial rhythm Low voltage QRS Abnormal ECG When compared with ECG of 31-Jan-2024 19:41, Ectopic atrial rhythm has replaced Sinus rhythm Referred By: Joanne Shetty Electronically Signed By: Martín Zaragoza
--- NOTE | 2024-12-07 16:00 | PC.NURSE ---
Mom, Magdalene, called at patient's request to let her know patient is in ED. [phone] no message left.
--- NOTE | 2024-12-07 16:09 | ED_ITS ---
HPI - SOB/Dyspnea General Chief Complaint: Dyspnea Stated Complaint: sob/asthma Time Seen by Provider: 12/07/24 16:04 Source: patient Mode of arrival: wheelchair Limitations: no limitations History of Present Illness ED Provider: Dr. Laura Pimentel HPI Narrative: Patient comes to the emergency room complaining of shortness of breath. Patient is known to have asthma. Patient states that he ran out of his inhaler 3 days ago. Patient states that he does not have any refills. Patient denies any chest pain. Patient denies any recent URI symptoms. Related Data Home Medications ?Medication ?Instructions ?Recorded ?Confirmed fluticasone propionate 230 2 puff inhalation BID 01/31/24 01/31/24 mcg-salmeterol 21 mcg/actuation HFA inhaler (Advair HFA) Previous Rx's ?Medication ?Instructions ?Recorded albuterol sulfate 90 mcg/actuation 2 puff inhalation Q4-6H PRN 12/07/24 aerosol inhaler shortness of breath or wheezing #8.5 grams fluticasone propionate 230 2 puff inhalation BID #12 grams 12/07/24 mcg-salmeterol 21 mcg/actuation HFA inhaler (Advair HFA) prednisone 50 mg tablet 50 mg PO DAILY #4 tabs 12/07/24 Allergies Allergy/AdvReac Type Severity Reaction Status Date / Time amphetamine [From Adderall] Allergy Intermediate Chills Verified 12/07/24 15:58 dextroamphetamine Allergy Intermediate Chills Verified 12/07/24 15:58 [From Adderall] aripiprazole [From Abilify] AdvReac Severe Anaphylaxis Verified 12/07/24 15:58 Review of Systems 2 Review of Systems: Constitutional : No Weight loss, No Fever, No Chills, No Night Sweats, No Fatigue, No Malaise ENT/Mouth : No Hearing loss, No Ear Pain, No Nasal Congestion, No Sinus Pain, No Hoarseness, No sore throat, No Rhinorrhea, No Swallowing Difficulty Eyes: No Eye Pain, No Swelling, No Redness, No Foreign Body, No Discharge, No Vision Changes Cardiovascular : No Chest Pain, No SOB, No Dyspnea on Exertion, No Orthopnea, No Edema, No Palpitations Respiratory : Complaining of shortness of breath, wheezing Gastrointestinal : No Nausea, No Vomiting, No Diarrhea, No Constipation, No abdominal Pain, No Hematochezia, No Melena Genitourinary : no irregular bleeding, No Dysuria, No Urinary Frequency, No Hematuria, No Urinary Incontinence, No Urgency, No Flank Pain, No Urinary Flow Changes, No Hesitancy Musculoskeletal : No joint pain, No Myalgias, No Joint Swelling Skin : No Skin Lesions, No rash Neuro : No Weakness, No Numbness, No Paresthesias, No Loss of Consciousness, No Dizziness, No Headache Psych : No Anxiety/Panic, No Depression, No SI/HI/AH/VH, No Social Issues, Heme/Lymph: No Bruising, No Bleeding,No Lymphadenopathy Endocrine : No Polyuria, No Polydipsia, No Temperature Intolerance PENDING SALE TO [facility] Past Medical History Medical History (Updated 12/07/24 @ 18:49 by Laura Pimentel MD) Mood disorder Asthma Social History Social History Household Members: Other Household Members Other:: Lives at [employer] [facility] Housing: Other Housing Other:: [facility] [facility] Alcohol intake: never Patient Tobacco Use Status: Current everyday Tobacco user Tobacco use type: Cigarette Cigarettes Per Day: 7 Years Smoked: 4 Smoked in Last 30 Days: Yes e-Cigarette/Vaping Use: Never Used Second Hand Smoke Exposure: Yes Substance Use Type: Marijuana Advance Directives: No Advance Directives Information Provided: No service: No Sexual orientation: Straight/Heterosexual Physical Exam 2 Vital Signs: Vital Signs: Last Vital Signs Temp 98.0 F 12/07/24 17:56 Pulse 98 12/07/24 18:00 Resp 18 12/07/24 18:00 BP 105/54 L 12/07/24 18:00 Pulse Ox 96 12/07/24 18:00 O2 Del Method Room Air 12/07/24 18:00 BMI result Body Mass Index 28.0 Const: Other: Appearance: Alert. Oriented X3. Eyes: Pupils equal, round and reactive to light. ENT: Pharynx normal. Neck: Normal inspection. Neck supple. No lymph nodes noted. No crepitus CVS: Normal heart rate and rhythm. Pulses normal. Normal S1 and S2 Respiratory: patient tachypneic, bilateral wheezing, decreased air movement. , oxygen saturation 96% on room air Abdomen: Soft and nontender. No rigidity. No distention. Skin: Skin warm and dry. Normal skin color. Normal skin turgor. Extremities: No lower extremity edema. No Lacerations. No Rash Neuro: Oriented X 3. No motor deficit. No sensory deficit. Moving all extremities. No slurred speech. CN 2 through 12 grossly intact Psych: calm, cooperative, normal affect Course Course Course Narrative: patient complaining of shortness of breath for 3 days, ran out of inhaler. Patient receiving [facility] protocol nebulization treatment, Solu-Medrol and magnesium. All of patient's labs and imaging pending Medications Administered Discontinued Medications Generic Name Dose Route Start Last Admin Trade Name Freq PRN Reason Stop Dose Admin Albuterol Sulfate 7.5 mg/ 10 mg 12/07/24 16:08 12/07/24 16:14 Albuterol Sulfate 2.5 mg INHALE 12/07/24 16:09 10 mg ONCE ONE Administration Albuterol Sulfate 2 puff 12/07/24 16:25 12/07/24 16:29 Albuterol Sulfate 90 Mcg 8 Gm Inhaler INHALE 12/07/24 16:26 2 puff ONCE ONE Administration Magnesium Sulfate 2 gm in 50 mls @ 150 mls/hr 12/07/24 16:03 12/07/24 17:01 Magnesium Sulfate/H2o IV 12/07/24 16:22 Infused ONCE ONE Infusion Methylprednisolone Sodium Succinate 125 mg 12/07/24 16:03 12/07/24 16:29 Methylprednisolone Sod Succ 125 Mg Vial IVPUSH 12/07/24 16:04 125 mg ONCE ONE Administration Medical Decision Making Medical Decision Making [facility] Narrative: My interpretation of labs: No significant abnormality in hematology and chemistry Chest x-ray no abnormality Patient no longer wheezing, oxygen saturation 97% on ambulation trial walking around the ED Differential Diagnosis Differential Diagnoses: The differential diagnosis associated with the presentation includes (Asthma, anxiety) Admission/Observation Consideration of admission/observation: Escalation of care including admission/observation considered (Given patient's initial presentation, observation was considered) Lab Data [facility] Lab Attestation statement: I reviewed the patient's lab results. 12/07/24 16:52 12/07/24 16:52 Labs: Lab Results 12/07/24 Range/Units 16:52 WBC 6.1 (4.8-10.8) X10*3/uL RBC 6.14 H (4.60-5.80) X10*6/uL Hgb 18.2 H (14.0-18.0) g/dl Hct 51.0 (42.0-52.0) % MCV 83.1 (80.0-98.0) fL MCH 29.6 (27.0-33.0) pg MCHC 35.7 (31.0-36.0) g/dl RDW 12.9 (11.0-16.0) % Plt Count 216 (160-400) X10*3/uL MPV 10.3 (9.4-12.4) fL Immature Gran % (Auto) 0.2 (0.0-0.4) % Neut % (Auto) 44.4 L (45-73) % Lymph % (Auto) 44.3 H (20-40) % [place] % (Auto) 5.3 (2-11) % Eos % (Auto) 5.5 H (0-4) % Baso % (Auto) 0.3 (0-2) % Lymph # (Auto) 2.7 (1.2-4.9) X10*3/uL [place] # (Auto) 0.3 (0.1-1.2) X10*3/uL Eos # (Auto) 0.3 (0.0-0.4) X10*3/uL Baso # (Auto) 0.0 (0.0-0.2) X10*3/uL Abs Immat Gran (auto) 0.01 (0.00-0.03) X10*3/uL Absolute Neuts (auto) 2.7 (2.0-8.3) x10*3/uL Absolute Nucleated RBC 0.000 (0.0-0.012) X10*3/uL Nucleated RBC % (auto) 0.0 (0.0-0.2) /100WBC Sodium 144 (135-145) mmol/L Potassium 3.9 (3.3-5.1) mmol/L Chloride 104 (96-108) mmol/L Carbon Dioxide 27 (22-29) mmol/L Anion Gap 17 (12-20) BUN 11 (9-16) mg/dL Creatinine 1.14 (0.5-1.4) mg/dL Estim Creat Clear Calc 123.1 Estimated GFR > 60 Random Glucose 100 (60-115) mg/dL Calcium 9.9 (8.4-10.2) mg/dL Total Bilirubin 1.7 H (0.0-1.0) mg/dL AST 26 (5-37) U/L ALT 19 (0-40) U/L Alkaline Phosphatase 92 (39-117) U/L Total Protein 7.2 (6.5-8.0) g/dL Albumin 4.6 (3.5-5.0) g/dL Influenza Type A (PCR) NEGATIVE (Negative) Influenza Type B (PCR) NEGATIVE (Negative) RSV RNA Qual (PCR) NEGATIVE (Negative) SARS-CoV-2 RNA (RT-PCR) NEGATIVE (Negative) Independent Interpretation I performed an independent interpretation of an: Plain X-Ray Radiology Impression Discussion of test interpretation with radiology: I have reviewed the radiologist's reading. Radiologist Impression: Normal lung volumes. Lungs are clear. No pneumothorax or pleural effusion. Heart size normal. No passive venous congestion. No midline shift or tracheal deviation. No acute fracture. Impression: 1. No acute cardiopulmonary disease. Critical Care Time Critical Care Time Critical Care Time: Yes Total Critical Care Time: 45 Attestation: I have personally provided critical care time. Time includes review of lab data, radiology results, discussion with consultants, and monitoring for potential decompensation. Intervention performed as documented. Discharge Plan Discharge Clinical Impression: Asthma Patient Disposition: Home, Self-Care Instructions: Asthma (ED) Additional Instructions: Please follow-up with your primary care physician tomorrow. If you have any worsening or new symptoms, please return to the emergency room or call 911 Prescriptions: New fluticasone propion-salmeterol [Advair HFA] 230-21 mcg/actuation HFA aerosol inhaler 2 puff inhalation BID Qty: 12 0RF albuterol sulfate 90 mcg/actuation HFA aerosol inhaler 2 puff inhalation Q4-6H PRN (Reason: shortness of breath or wheezing) Qty: 8.5 0RF prednisone 50 mg tablet 50 mg PO DAILY Qty: 4 0RF No Action fluticasone propion-salmeterol [Advair HFA] 230-21 mcg/actuation HFA aerosol inhaler 2 puff inhalation BID Print Language: British
[2024-12-07] MEDS: Albuterol Sulfate 7.5 MG, Albuterol Sulfate (0.083%) 2.5 MG 10 MG INHALE (16:14)
[2024-12-07] MEDS: Magnesium Sulfate/H2O 2 GM/50 ML PIGGYBACK IV (16:29)
[2024-12-07] MEDS: Albuterol Sulfate 90 MCG 8 GM INHALER 2 PUFF INHALE (16:29)
--- NOTE | 2024-12-07 16:48 | PC.NURSE ---
Patient presents with asthma symptoms and ran out of his inhalers. Patient extemely anxious causing increased tachynea/coughing. Once resp tx provided, tachpynea appears to have subsided. PMH: mood disorder and asthma. Lungs coarse with an occas wheeze, Once more calm respirations even and non-labored. Abdomen soft, non-tender with positive bowel sounds. Positive pedal pulses with no edema.
[2024-12-07 16:58] LABS: MANUAL DIFF FLAG NO
[2024-12-07 17:01] LABS: Basophils Percent Auto 0.3 % (0-2); Eosinophils Absolute Auto 0.3 X10*3/uL (0.0-0.4); Eosinophils Percent Auto 5.5 % (0-4); Hemoglobin 18.2 g/dl (14.0-18.0); Imm Gran Abs Auto 0.01 X10*3/uL (0.00-0.03); Imm Gran Pct Auto 0.2 % (0.0-0.4); Lymphocytes Absolute Auto 2.7 X10*3/uL (1.2-4.9); Lymphocytes Percent Auto 44.3 % (20-40); Mean Corpuscular HGB Conc 35.7 g/dl (31.0-36.0); Mean Corpuscular Hemoglobin 29.6 pg (27.0-33.0); Mean Corpuscular Volume 83.1 fL (80.0-98.0); Mean Platelet Volume 10.3 fL (9.4-12.4); Monocytes Absolute Auto 0.3 X10*3/uL (0.1-1.2); Monocytes Percent Auto 5.3 % (2-11); Neutrophils Absolute Auto 2.7 x10*3/uL (2.0-8.3); Neutrophils Percent Auto 44.4 % (45-73); Platelet Count 216 X10*3/uL (160-400); Red Blood Count 6.14 X10*6/uL (4.60-5.80); Red Cell Distribution Width 12.9 % (11.0-16.0); White Blood Count 6.1 X10*3/uL (4.8-10.8)
[2024-12-07 17:16] LABS: Alanine Aminotransferase 19 U/L (0-40); Albumin Level 4.6 g/dL (3.5-5.0); Alkaline Phosphatase 92 U/L (39-117); Anion Gap 17 (12-20); Aspartate Amino Transferase 26 U/L (5-37); Bilirubin Total 1.7 mg/dL (0.0-1.0); Blood Urea Nitrogen 11 mg/dL (9-16); Calcium 9.9 mg/dL (8.4-10.2); Carbon Dioxide 27 mmol/L (22-29); Chloride 104 mmol/L (96-108); Creatinine Clr Calc Pharmacy 123.1; Estimated Glomerular Filt Rate > 60; Glucose Random 100 mg/dL (60-115); Potassium 3.9 mmol/L (3.3-5.1); Sodium 144 mmol/L (135-145); Total Protein 7.2 g/dL (6.5-8.0)
[2024-12-07 17:37] LABS: Influenza A PCR NEGATIVE (Negative); Influenza B PCR NEGATIVE (Negative); Resp Syncy Virus RNA Qual PCR NEGATIVE (Negative); SARS COV2 PCR INHOUSE NEGATIVE (Negative)
== END 2024-12-07 18:58 | disposition home or self-care (01) ==
PROVIDERS: Nurse Practitioner Family; Emergency Provider Emergency Medicine; PCP Internal Medicine
DX: J45.909 Unspecified asthma, uncomplicated (principal); R06.02 Shortness of breath; R94.31 Abnormal electrocardiogram [ECG] [EKG]; F17.210 Nicotine dependence, cigarettes, uncomplicated; Z79.899 Other long term (current) drug therapy; Z03.818 Encounter for observation for suspected exposure to other biological agents ruled out
CPT/HCPCS: 0241U; 36415; 71045; 80053; 85025; 93005; 94640; 94664; 96365; 96375; 99284; 99285; J2919; J3475

== ENCOUNTER → 2024-12-07 15:59 | Outpatient (BNV) | payer MEDICAID, SELFPAY | PROVIDERS: Emergency Provider Emergency Medicine; PCP Internal Medicine; Visit Provider Internal Medicine Cardiovascular Disease | DX: R94.31 Abnormal electrocardiogram [ECG] [EKG] (principal); R06.02 Shortness of breath | CPT/HCPCS: 93010 ==

== ENCOUNTER → 2024-12-07 16:08 | Outpatient (BNV) | payer MEDICAID, SELFPAY | PROVIDERS: Emergency Provider Emergency Medicine; PCP Internal Medicine; Visit Provider Radiology Diagnostic Radiology | DX: R06.02 Shortness of breath (principal) | CPT/HCPCS: 71045 ==

== ENCOUNTER 2025-01-25 08:52 | Emergency (ER) | payer OTHER, SELFPAY ==
--- NOTE | 2025-01-25 | ECG_ITS ---
Test Reason : DYSPNEA Blood Pressure : */* mmHG Vent. Rate : 63 BPM Atrial Rate : 63 BPM P-R Int : 156 ms QRS Dur : 90 ms QT Int : 346 ms P-R-T Axes : 46 -6 8 degrees QTcB Int : 354 ms Normal sinus rhythm Normal ECG When compared with ECG of 07-Dec-2024 16:27, Sinus rhythm has replaced Ectopic atrial rhythm Referred By: Generic ED Physician Electronically Signed By: CHRISTINA ELLIS
--- NOTE | ~2025-01-25 | XR_ITS ---
CLINICAL HISTORY: SOB 2 views chest Comparison: CR - XR CHEST 1V - 12/07/24 17:04 EDT Findings: Cardiac and mediastinal contours are normal. Mild interstitial prominence with scattered peribronchial thickening. No focal consolidation. No effusion. No pneumothorax. No acute osseous finding. Impression: Mild interstitial prominence with scattered peribronchial thickening. No focal consolidation. This document has been electronically signed by: Bobby Reyes MD on 01/25/2025 10:54:36
[2025-01-25 09:08] VITALS: BP 122/52; BP 129/75; PULSE 65; PULSE 74; RESP 18; TEMP 36.8; O2SAT 97; O2SAT 98; BMI 26.4
[2025-01-25 09:49] VITALS: BP 110/42; PULSE 70; RESP 18; TEMP 36.7; O2SAT 96
--- NOTE | 2025-01-25 10:49 | ED_ITS ---
HPI - General Adult General Chief complaint: Dyspnea Stated complaint: SOB, WHEEZING ALL COLEMAN, DUONEB GIVEN PER EMS Time Seen by Provider: 01/25/25 09:44 Source: patient, family and EMS Mode of arrival: EMS Limitations: no limitations History of Present Illness ED Provider: Joanne Shetty NP HPI narrative: Patient is a 24-year-old male who presents emergency department via EMS for eunice luation of shortness of breath and wheezing. He states this has been ongoing over the past month with productive cough in the morning. He has been using his albuterol and Advair inhaler without much improvement. He has a nebulizer machine at home but does not have the solution to use it. He states that he has been compliant with his inhalers. Denies any fevers or chills. No recent sick contacts. Denies orthopnea, PND. Denies trauma, fevers, chills, URI symptoms, sore throat, difficulty swallowing, neck pain, chest pain, palpitations, nausea, vomiting, abdominal pain, numbness or tingling of the extremities, recent lower extremity pain or swelling. Denies alcohol use, recreational drugs. He has been continue to smoke tobacco. Related Data Home Medications ?Medication ?Instructions ?Recorded ?Confirmed fluticasone propionate 230 2 puff inhalation BID 01/3001/31/24 mcg-salmeterol 21 mcg/actuation HFA inhaler (Advair HFA) Previous Rx's ?Medication ?Instructions ?Recorded albuterol sulfate 90 mcg/actuation 2 puff inhalation Q 4-6H PRN 12/07/24 aerosol inhaler shortness of breath or wheez ing #8.5 grams fluticasone propionate 230 2 puff inhalation BID #12 g tristan 12/07/24 mcg-salmeterol 21 mcg/actuation HFA inhaler (Advair HFA) prednisone 50 mg tablet 50 mg PO DAILY #4 tabs 12/07 fluticasone 100 mcg-salmeterol 50 1 inh inhalation BID #60 ea 12/10/24 mcg/dose blistr powdr for inhalation (Advair Diskus) albuterol sulfate 2.5 mg/3 mL 2.5 mg (3 mL) inhalation Q6-8H PRN 01/25/25 (0.083 %) solution for nebulization shortness of breat h or wheezing #180 mL azithromycin 250 mg tablet See Rx Instructions PO .COM PLEX #6 01/25/25 tabs guaifenesin 1,200 mg tablet, 1,200 mg PO BID #14 tabs 01/25/25 extended release 12 hr prednisone 20 mg tablet 40 mg (2 x 20 mg) PO DAILY # 10 tabs 01/25/25 Allergies Allergy/AdvReac Type Severity Reaction Status Date / Time amphetamine (From Adderall) Allergy Intermediate Chills Verified 01/25/25 09:11 dextroamphetamine (From Allergy Intermediate Chills Verified 01/25/25 09:11 Adderall) aripiprazole (From Abilify) AdvReac Severe Anaphylaxis Verified 01/25/25 09:11 Review of Systems Review of Systems: Yes all other systems are reviewed and are negative PMFSH Past Medical History Attestation statement: The following information was validated with the patient. Source: old records reviewed Medical History Mood disorder Asthma Social History Social History Household Members: Other Household Members Other:: Lives at [employer] Housing: Other Housing Other:: [facility] Alcohol intake: never Patient Tobacco Use Status: Current everyday Tobacco user Tobacco use type: Cigarette Cigarettes Per Day: 7 Years Smoked: 4 Smoked in Last 30 Days: Yes e-Cigarette/Vaping Use: Never Used Second Hand Smoke Exposure: Yes Use of substances other than those prescribed or required for medical reasons: No Substance Use Type: Marijuana Advance Directives: No Advance Directives Information Provided: No Do you have a plan to hurt others: No Plan service: No Sexual orientation: Straight/Heterosexual Physical Exam ED Vital Signs: Vital Signs - 24 hr 01/25/25 09:08 01/25/25 09:49 Temperature 98.2 F 98.1 F Pulse Rate 65 70 Respiratory Rate 18 18 Blood Pressure 122/52 L 110/42 L Pulse Oximetry 97 96 Oxygen Delivery Method Room Air Room Air BMI result Body Mass Index 26.4 Appearance: Alert.?Oriented to person, place and time. No acute distress.?Normal affect. Eyes: Pupils equal, round and reactive to light.? ENT: Pharynx normal.?? Neck: Normal inspection.? Neck supple.?? CVS: Heart sounds normal. Normal heart rate and rhythm.? Pulses normal.?? Respiratory: No respiratory distress.? Lung sounds clear with mild inspiratory wheezing, no prolonged expiratory wheeze Abdomen: Soft and non-tender. Normoactive bowel sounds. Skin: Skin warm and dry.? Normal skin color.? Extremities: No lower extremity edema.? No calf ttp? Neuro: Moves all extremities spontaneously. Sensation intact bilaterally. No focal neuro deficits. Ambulates with normal steady gait. Medical Decision Making Medical Decision Making [facility] Narrative: Patient is a 24-year-old male with past medical history of asthma who presents emergency department expressed concern for asthma exacerbation, symptoms over the past month as per HPI with productive cough primarily in the a.m.. He is sleeping in his an air-conditioned room, symptoms do slightly improve throughout the day. However, he is not getting significant relief from his albuterol and Advair inhaler. Does not have nebulizer solution. No recent steroid usage. Continues to smoke tobacco despite being advised not to. Overall well- appearing, nontoxic, afebrile, no respiratory distress. He has mild expiratory wheezing after receiving 2 DuoNeb updrafts from EMS. Viral serologies are negative. Chest x-ray revealed no consolidation infiltrate to suggest pneumonia, no pleural effusions, consistent with bronchitis. ECG reveals sinus rhythm with ventricular rate of 63, normal DIMITRY, QTC 354, no ST elevation. Ambulatory O2 trial revealed an O2 saturation of 95% on room air, no notable dyspnea on exertion. No rash or lesions, urticaria, or evidence of angioedema to suggest allergic reaction/anaphylaxis. No swallowing difficulties to suggest aspiration. No associated chest pain, lower extremity redness pain or swelling, history of VTE/malignancy to suggest ACS. CHF, pericardial effusion, or pulmonary embolism. No palpitations or history of known arrhythmias. No recent trauma or injury, no tracheal deviation, unlikely tension pneumothorax. No recent URI symptoms to suggest viral illness, or pneumonia. No history of diabetes, unlikely DKA. No acute bleeding or known anemia, no associated dizziness fatigue or chest pain to suggest acute anemia. Differential Diagnosis Differential Diagnoses: The differential diagnosis associated with the presentation includes (See narrative above) Lab Data [facility] Lab Attestation statement: I reviewed the patient's lab results. Independent Interpretation I performed an independent interpretation of an: EKG (See narrative above) and Plain X-Ray (See narrative above) Radiology Impression Discussion of test interpretation with radiology: I have reviewed the radiologist's reading. Radiologist Impression: 2 views chest Comparison: CR - XR CHEST 1V - 12/07/24 17:04 EDT Findings: Cardiac and mediastinal contours are normal. Mild interstitial prominence with scattered peribronchial thickening. No focal consolidation. No effusion. No pneumothorax. No acute osseous finding. Impression: Mild interstitial prominence with scattered peribronchial thickening. No focal consolidation. Independent Historian Clinical information obtained from an independent historian. History obtained from or confirmed by: Parent (Mother at bedside) and EMS External Record Review External record reviewed: Outpatient record Prescription Management I considered prescription management with: Antibiotic (Azithromycin) and Other (See narrative above; prednisone, albuterol solution for nebulizer) Chronic Conditions Patient?s care impacted by: Other (See narrative above) Discharge Plan Discharge Clinical Impression: Acute asthmatic bronchitis Patient Disposition: Home, Self-Care Instructions: Asthma (ED), Acute Bronchitis (ED) Additional Instructions: Chest x-ray does not show evidence of pneumonia which is reassuring. Symptoms are consistent with bronchitis and exacerbation of your asthma. Prescriptions have been sent to the pharmacy for albuterol nebulizer solution is rubbery and out, in addition to prednisone, and a short course of azithromycin. Guaifenesin can be used as an expectorant to help get out of the phlegm from your cough particularly in the morning. Follow-up with PCP/pulmonology. Return to emergency department any new or worsening symptoms or concerns. Prescriptions: New prednisone 20 mg tablet 40 mg PO DAILY Qty: 10 0RF azithromycin 250 mg tablet See Rx Instructions .ROUTE .COMPLEX Qty: 6 0RF Rx Instructions: For 250 mg dose pack: take 500 mg today (day 1), then 250 mg for 4 days (days 2-5) guaifenesin 1,200 mg tablet extended release 12hr 1,200 mg PO BID Qty: 14 0RF albuterol sulfate 2.5 mg /3 mL (0.083 %) solution for nebulization 2.5 mg inhalation Q6-8H PRN (Reason: shortness of breath or wheezing) Qty: 180 0RF No Action fluticasone propion-salmeterol [Advair HFA] 230-21 mcg/actuation HFA aerosol inhaler 2 puff inhalation BID Qty: 12 0RF albuterol sulfate 90 mcg/actuation HFA aerosol inhaler 2 puff inhalation Q4-6H PRN (Reason: shortness of breath or wheezing) Qty: 8.5 0RF prednisone 50 mg tablet 50 mg PO DAILY Qty: 4 0RF fluticasone propion-salmeterol [Advair Diskus] 100-50 mcg/dose blister with device 1 inh inhalation BID Qty: 60 0RF fluticasone propion-salmeterol [Advair HFA] 230-21 mcg/actuation HFA aerosol inhaler 2 puff inhalation BID Referrals: Physician,Unknown J [Primary Care Provider, Medical] Print Language: Latvian
[2025-01-25 11:12] LABS: Resp Syncy Virus RNA Qual PCR NEGATIVE (Negative); SARS COV2 PCR INHOUSE NEGATIVE (Negative)
[2025-01-25 11:18] VITALS: BP 108/41; PULSE 59; RESP 12; TEMP 36.2; O2SAT 96
[2025-01-25 11:24] VITALS: BP 108/41; PULSE 59; RESP 12; TEMP 36.2; O2SAT 96
== END 2025-01-25 11:26 | disposition home or self-care (01) ==
PROVIDERS: Nurse Practitioner Family; Emergency Provider Emergency Medicine
DX: J20.9 Acute bronchitis, unspecified (principal); R06.02 Shortness of breath; Z03.818 Encounter for observation for suspected exposure to other biological agents ruled out
CPT/HCPCS: 71046; 87637; 93005; 99283; 99285

== ENCOUNTER → 2025-01-25 09:09 | Outpatient (BNV) | payer OTHER, SELFPAY | PROVIDERS: Emergency Provider Emergency Medicine; Visit Provider Internal Medicine | DX: R06.00 Dyspnea, unspecified (principal) | CPT/HCPCS: 93010 ==

== ENCOUNTER → 2025-01-25 09:59 | Outpatient (BNV) | payer OTHER, SELFPAY | PROVIDERS: Visit Provider Radiology Vascular & Interventional Radiology | DX: R06.02 Shortness of breath (principal) | CPT/HCPCS: 71046 ==

== ENCOUNTER 2025-03-14 22:26 | Emergency (ER) | payer OTHER, SELFPAY ==
--- NOTE | ~2025-03-14 | CT_ITS ---
CLINICAL HISTORY: fall approx 8 ft; NOWAK CT head without contrast Comparison: CT/REG/SR - CT HEAD WITHOUT IV CONTRAST - 01/11/24 14:24 EDT Findings: No intracranial mass, midline shift, hydrocephalus, or acute hemorrhage. Mild right cerebellar tonsillar ectopia redemonstrated. Mild mucosal thickening identified within the ethmoid air cells with minimal mucosal thickening at the right maxillary sinus. The bilateral mastoid air cells appear clear. No acute skull fracture. Impression: 1. No acute intracranial abnormality. No acute intracranial hemorrhage. This document has been electronically signed by: Chaka Hickman MD on 03/15/2025 00:40:50
--- NOTE | ~2025-03-14 | CT_ITS ---
CLINICAL HISTORY: fall approx 8 ft; NOWAK CT cervical spine without contrast Comparison: CT/SR - CT CERVICAL SPINE WITHOUT IV CONTRAST - 01/11/24 14:24 EDT Findings: The visualized portions of the bilateral lung apices appear clear. Mild levocurvature present at the cervical spine. No cervical spondylolisthesis. No acute fractures or dislocations. No significant degenerative endplate changes at the cervical spine. Impression: 1. No acute fracture or dislocation injury identified at the cervical spine. This document has been electronically signed by: Chaka Hickman MD on 03/15/2025 00:38:57
[2025-03-14 22:49] VITALS: BP 118/64; PULSE 63; RESP 18; TEMP 36.2; O2SAT 97; BMI 28.0
[2025-03-14 23:04] VITALS: BP 118/64; BP 126/73; PULSE 63; PULSE 66; RESP 16; RESP 18; TEMP 36.2; TEMP 36.6; O2SAT 96; O2SAT 97
--- NOTE | 2025-03-14 23:10 | PC.NURSE ---
pt confirms being hit with back hoe while doing yard work and fell onto ground. denies LOC, no dizziness or lightheadedness prior to fall. Dizziness now as well as severe headache and nausea. denies vomiting. took 800 mg ibuprofen at 2200 with no relief. respirations even and unlabored, 02 at 100% room air.
--- OUTSIDE RECORDS SUMMARY | 2025-03-14 23:35 | XMS_ITS | Encounter Summary ---
Author Organization [facility] Address [address] [place] [address] Care Team Providers Care Unix Administrator Name Role Phone Lio Gerard MD Primary Care Provider Unava Lio Cloud MD Unavailable Unavailable Ari Cueto MD Primary Care Provider [phone] Ramon Godwin Primary Care Provider [phone] Reason for Visit * Reason Onset Date Comments refill request 06/18/2020 Encounter Details Date Type Department Care Team Description 06/18/2020 Refill Pulmonology - [place] [address] [place] [address] Sukumar Ng MD [address] [place] [id number] refill request Social History Tobacco Use Types Packs/Day Years Used Date Smoking Tobacco: Some Days Cigarettes Smokeless Tobacco: Never Alcohol Use Standard Drinks/Week Comments Not Asked 0 (1 standard drink = 0.6 oz pur e alcohol) Sex Assigned at Date Recorded Not on file Job Start Date Occupation Industry Not on file Not on file Not on file documented as of this encounter Miscellaneous Notes * Telephone Encounter - Analisa Zuleta - 06/18/2020 12:59 PM EST KAYLIE - 05.26.2020 NOV - Patient will call back to reschedule next follow up appointment documented in this encounter Plan of Treatment Not on file documented as of this encounter Visit Diagnoses Diagnosis Allergic rhinitis due to other allergic trigger, unspecified seasonality Moderate persistent asthma with acute exacerbation documented in this encounter Care Teams Unix Administrator Relationship Specialty Start Date End Date Lio Gerard MD PCP - General 05/28/20 10/26/21 Ari Cueto MD [address] [place] [address] PCP - General Internal Medicine 10/27/21 12/07/21 Ramon Godwin [address] [place] [address] PCP - General Internal Medicine 12/08/21 Lio Gerard MD Internal Medicine 05/28/20 documented as of this encounter
--- OUTSIDE RECORDS SUMMARY | 2025-03-14 23:35 | XMS_ITS | Clinical Summary ---
Author Organization [facility] Address [address] [place] [address] Care Team Providers Care Olive Packer Name Role Phone Ramon Godwin MD Primary Care Provider [phone] Allergies Active Allergy Reactions Criticality Noted Date Comments Amphetamine-Dextroamphetami ne 05/07/2015 Other reaction(s): Irritability, OTHER agressive Aripiprazole Anaphylaxis High 05/07/2015 Medications Medication Sig Dispensed Refills Start Date End Date Status albuterol (PROVENTIL) (2.5 MG/3ML) 0.083% nebulizer solution 0 03/10/2022 Active escitalopram (LEXAPRO) tablet 10 mg TAKE 1 TABLET BY MOUTH EVERY DAY IN THE MORNING 0 01/02/2022 Active Advair HFA 230-21 MCG/ACT inhaler INHALE 2 PUFFS INTO THE LUNGS 3 TIMES DAILY FOR ASTHMA 0 02/10/2022 Active Active Problems No known active problems Social History Tobacco Use Types Packs/Day Years Used Date Smoking Tobacco: Every Day Cigarettes 0.3 Smokeless Tobacco: Never Alcohol Use Standard Drinks/Week Comments Not Currently 0 (1 standard drink = 0.6 oz pur e alcohol) Sex and Gender Information Value Date Recorded Sex Assigned at Not on file Gender Identity Not on file Sexual Orientation Not on file Job Start Date Occupation Industry Not on file Not on file Not on file Last Filed Vital Signs Vital Sign Reading Time Taken Comments Blood Pressure 127/70 03/14/2022 1:06 PM EDT Pulse 110 03/14/2022 1:06 PM EDT Temperature 36.6 C (97.8 F) 03/14/2022 1:06 PM EDT Respiratory Rate - - Oxygen Saturation 98% 03/14/2022 1:06 PM EDT Inhaled Oxygen Concentration - - Weight 119.3 kg (263 lb) 03/14/2022 1:06 PM EDT Height - - Body Mass Index - - Plan of Treatment Health Maintenance Due Date Last Done Comments Hepatitis B Vaccines (1 of 3 - 3-dose series) 2001 Hepatitis C Screening 2001 COVID-19 Vaccine (#1) 02/07/2002 Pneumococcal Vaccine (1 of 1 - PPSV23 or PCV20) 2007 07/21/2002, 02/07/2002, 2001, Additional history exists Depression Screening 2013 Preventative Health Evaluation 2019 Influenza Vaccine (#1) 2025 , 03/21/2019, 05/14/2018, Additional history exists DTap / Tdap / Td (8 - Td or Tdap) 03/06/2030 03/06/2020, 10/21/2012, 10/05/2005, Additional history exists RSV Ped < 20 months Aged Out No longe r eligible based on patient's age to complete this topic Care Teams Olive Packer Relationship Specialty Start Date End Date Ramon Godwin MD [address] [place] [address] [id number] PCP - General Hospitalist Medicine 03/14/22
--- OUTSIDE RECORDS SUMMARY | 2025-03-14 23:35 | XMS_ITS | Encounter Summary ---
Author Organization [facility] Address [address] [place] [address] Care Team Providers Care Workers' Compensation Claims Examiner Name Role Phone John Collier MD Primary Care Provider Lio Islas MD Primary Care Provider Lio Islas MD Primary Care Provider Unava Lio Cloud MD Unavailable Unavailable Ari Cueto MD Primary Care Provider [phone] Ramon Godwin Primary Care Provider [phone] Encounter Details Date Type Department Care Team Description 10/31/2019 [facility] - [address] [address] John Collier MD Social History Tobacco Use Types Packs/Day Years Used Date Smoking Tobacco: Never Smokeless Tobacco: Never Alcohol Use Standard Drinks/Week Comments Not Asked 0 (1 standard drink = 0.6 oz pur e alcohol) Sex Assigned at Date Recorded Not on file Job Start Date Occupation Industry Not on file Not on file Not on file documented as of this encounter Plan of Treatment Not on file documented as of this encounter Visit Diagnoses Not on filedocumented in this encounter Care Teams Workers' Compensation Claims Examiner Relationship Specialty Start Date End Date John Collier MD PCP - General Pediatrics 05/05/15 03/07/20 Lio Gerard MD PCP - General Internal Medicine 03/08/20 05/27/20 Lio Gerard MD PCP - General 05/28/20 10/26/21 Ari Cueto MD [address] [place] [address] PCP - General Internal Medicine 10/27/21 12/07/21 Ramon Godwin [address] [place] [id number] PCP - General Internal Medicine 12/08/21 Lio Gerard MD Internal Medicine 05/28/20 documented as of this encounter
--- OUTSIDE RECORDS SUMMARY | 2025-03-14 23:35 | XMS_ITS | Encounter Summary ---
Demographics Address [address] [facility] [address] [place] [address] Home Phone Work Phone Mobile Phone Email Address Preferred Language German Marital Status Single Sikhism Affiliation Unknown Race White Ethnic Group Not or Lati no Author Organization [facility] Address [address] [place] [address] Care Team Providers Care Student Advisor Name Role Phone Lio Gerard MD Unavailable Unavailable Ramon Godwin Primary Care Provider [phone] Reason for Visit * Reason Onset Date Comments DME Request 01/05/2022 Encounter Details Date Type Department Care Team Description 01/05/2022 Telephone Pulmonology - [place] [address] [facility] [address] [place] [address] Bobby Plaza MD DME Request Social History Tobacco Use Types Packs/Day Years Used Date Smoking Tobacco: Some Days Cigarettes Smokeless Tobacco: Never Comments:smokes approx 1-2 c igarettes daily Alcohol Use Standard Drinks/Week Comments Not Currently 0 (1 standard drink = 0.6 oz pur e alcohol) Sex Assigned at Date Recorded Not on file Job Start Date Occupation Industry Not on file Not on file Not on file COVID-19 Exposure Response Date Recorded In the last 10 days, have yo u been in contact with someone who was confirmed or suspected to have Coronavirus/COVID-19? No / Unsure 12/27/2021 8:53 AM EDT documented as of this encounter Miscellaneous Notes * Telephone Encounter - Kaia Childs - 01/05/2022 8:54 AM EDT Done faxed order to [facility] for Nebulizer machine documented in this encounter Plan of Treatment Not on file documented as of this encounter Visit Diagnoses Not on filedocumented in this encounter Care Teams Student Advisor Relationship Specialty Start Date End Date Ramon Godwin [address] [place] [id number] PCP - General Internal Medicine 12/08/21 Lio Gerard MD Internal Medicine 05/28/20 documented as of this encounter
--- OUTSIDE RECORDS SUMMARY | 2025-03-14 23:35 | XMS_ITS | Clinical Summary ---
Author Organization [facility] Address [address] [place] [address] Phone Care Team Providers Care Mineral Industry Teacher Name Role Phone Ramon Godwin MD Primary Care Provider Allergies Active Allergy Reactions Criticality Noted Date Comments Aripiprazole Anaphylaxis High 05/07/2015 Dextroamphetamine-Ampheta mine Other,Irritable 05/07/2015 agressive Other reaction(s): Irritability, OTHER agressive Medications inhalational spacing device (BreatheRite MDI Spacer) inhaler 022 Active albuterol 2.5 mg /3 mL (0.083 %) nebulizer solutionIndicati ons:Moderate persistent asthma, unspecified whether complicated Take 3 mL (2.5 mg total) by nebulization every 6 (six) hours if needed for wheezing or shortness of breath. 360 mL 11 024 2024 Active carbamide peroxide (DEBROX) 6.5 % otic solution Administer 5-10 drops into each ear 2 (two) times a day. 15 mL 025 Active Ventolin HFA 90 mcg/actuation inhalerIndicatio ns:Moderate persistent asthma, uncomplicated INHALE 2 PUFFS BY MOUTH EVERY 6 HOURS NEEDED FOR WHEEZE OR FOR SHORTNESS OF BREATH 54 each 3 025 Active fluticasone propion-salmeter oL (Advair HFA) 230-21 mcg/actuation inhalerIndicatio ns:Moderate persistent asthma, unspecified whether complicated Inhale 2 puffs by mouth 2 (two) times a day. Rinse mouth with water after use to reduce aftertaste and incidence of candidiasis. Do not swallow. 3 each 3 025 2025 Active omeprazole (PriLOSEC) [address] capsule TAKE 1 CAPSULE BY MOUTH 1 TIME EACH DAY. DO NOT CRUSH OR CHEW. 30 capsule 025 Active omeprazole (PriLOSEC) [address] capsule Take 1 capsule (40 mg total) by mouth 1 (one) time each day. Do not crush or chew. 90 each 1 025 2024 Discontinued Active Problems Problem Noted Date Diagnosed Date Attention deficit hyperactivity disorder 024 Croup 05/20/2024 Mood disorder ([facility] V24) 05/20/2024 Posttraumatic stress disorder 05/20/2024 Asthma 05/20/2024 Smoker 12/27/2021 Overview (05/15/2024): Last Assessment & Plan: Advised strongly to quit smoking and he will do it. Lab test negative for COVID-19 virus 05/12/2020 Polycythemia 04/18/2020 PTSD (post-traumatic stress disorder) 04/16/2020 Overview (05/15/2024): Reportedly misdiagnosed as bipolar d/o per mom, no psych or therapist at this time. Allergic rhinitis due to cat hair 02/05/2020 PND (post-nasal drip) 02/05/2020 Esophageal obstruction due to food impaction Overview (05/15/2024): 06/24/18 Steak, removed, FU GI 4-6 weeks, omeprazol prescribed Scleral icterus 05/14/2018 Overview (05/15/2024): 05/14/2018 labs ordered Allergic rhinitis 11/17/2015 Overview (05/15/2024): On Zyrtec Asthma in adult, moderate pe rsistent, with acute exacerbation 09/18/2015 Overview (05/15/2024): 09/18/15 insurance letter received poor use of controllers, alb filled almost montly last year. Last ER visit 11/27/14 11/17/[address] Canales 03/14/17 Dr. Canales: No change in treatment, continue symbicort FU 3 M 05/14/2018 hasn't had any symptoms in a year. No treatments. Not seen specialist Last Assessment & Plan: 22-year-old man, heavy smoker with moderate persisting asthma. 1. Advised strongly to quit smoking to avoid progression to chronic bronchitis and COPD 2. Continue with Advair 250 mcg 1 puff twice a day 3. Albuterol as needed 4. Return to clinic in 6 months. 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 Overview (05/15/2024): 05/21/15 argument at school, started yelling I want to kill my self taken to the ER cleared by Crisis 11/17/15 history of PTSD and mood disorder, sees therapist and psychiatrist, mood stable, on Seroquel and Wellbutrin 11/14/2017 communication letter , Depression and axiety Immunizations Name Administration Dates Next Due DTP 2001 DTaP (Infanrix) 6wks to less than 7yo ,11/14/2002,02/07/2002,12/10,2001 [id number]-[id number]-[id number] (Pentacel) 2mo to less than 5yo 11/14/2002,02/07/2002,2001,10/09 HPV, Quadrivalent 05/12/2014,10/27/2013,10/22/19 13 Hepatitis A Pediatric (Havri x; Vaqta) 12mo to less than 19yo 11/24/2014 Hepatitis B (Nuhbjju-X-Gklho , Recombivax HB-Adult) 19yo and older 2001 Hepatitis B Pediatric (Enger ix B; Recombivax HB) to less than 20 yo 05/12/2002,2001 Hib (HbOC) 2001 IPV Inactivated polio (Ipol) 6wks and older 10/05/2005,05/12/2002,2001,10/09 Influenza Quadravalent, MDCK , 0.5ml, preservative free (Flucelvax) 6mo and older 04/01/2020,03/21/2019 Influenza Quadrivalent, 0.5m l, preservative free (Fluarix; FluLaval; Fluzone) ages 6mo and older (Afluria) 3yo and older 05/14/2018 Influenza trivalent, 0.5mL, preservative free (Fluarix; FluLaval; Fluzone) ages 6mo and older (Afluria) 3 years and older 05/14/2018,04/29/2016,05/07/2015,05/12,05/05/2013,04/16/2012 MMR, measles mumps and rubel la Live (Priorix; M-M-R II) 12mo and older 10/05/2005,08/15/2002 Meningococcal MCV4P 05/14/2018,10/21/2012 Pneumococcal Conjugate Vacci ne, 7 Valent 07/21/2002,02/07/2002,2001,10/09 Pneumococcal, Unspecified 07/21/2002,,2001,10/09 Tdap Tetanus diptheria acell ular pertussis (Boostrix; Adacel) 7yo and older 03/06/2020,10/21/2012 Varicella live (Varivax) 12m o and older 05/12/2014,08/15/2002 Surgical History Surgery Date Site/Laterality Comments OTHER SURGICAL HISTORY PROCEDURE: ---- OTHER ----; COMMENT: removal of 4 front teeth in past OTHER SURGICAL HISTORY PROCEDURE: ---- OTHER ----; COMMENT: EGD to remove steak stuck in esophagus Medical History Medical History Date Comments ADHD (attention deficit hype ractivity disorder) DX:ADHD (attention deficit hyperactivity disorder) Asthma DX:Asthma Bipolar disorder ([facility] V2 4, [facility] V28) 06/27/2016 DX:Bipolar disorder ([facility]); C OMMENT: 11/10/14 meds prescribed by his Psychiatrist. Sees therapist Syncope 11/17/2015 DX:Syncope; COMM ENT: 11/17/15 4 times in a week, refer to neurology. 03/09/16 Neuro: to have EEG 04/04/16 Neuro: EEG NL, syncope, no FU Family history of cardiomyopathy 11/17/2015 DX:Family history of cardiomyopathy; COMMENT: MGM, as per mother had cardio w/up neg, followup asymptomatic. Family History Medical History Relation Name Comments Other: heart disease Grandparent Heart attack Maternal Grandfather x 3 Hypertension Maternal Grandfather Other: cardiomiophaty Maternal Grandmother at 24 y Depression Mother TA disease Mother Hypertension Mother Obesity Mother Other: anxiety Mother Other: hypercalcemia Mother Diabetes Mother's side Hyperlipidemia Other No Known Problems Sister 1 1/2 sis No Known Problems Sister 2 1/2 sis No Known Problems Sister 3 1/2 sis Cancer Neg Hx Relation Name Status Comments Father Grandparent Maternal Grandfather Maternal Grandmother Mother Mother's side Other Sister 1 1/2 sis Alive Sister 2 1/2 sis Alive Sister 3 1/2 sis Alive Social History Tobacco Use Types Packs/Day Years Used Date Smoking Tobacco: Every Day Cigarettes 0.3 5 Started: 03/2020 Smokeless Tobacco: Never Tobacco Cessation:Ready to Q uit: Not Asked; Counseling Given: Not Answered Comments:7-8 cigarette daily Alcohol Use Standard Drinks/Week Comments Not Currently 0 (1 standard drink = 0.6 oz pur e alcohol) Sex and Gender Information Value Date Recorded Sex Assigned at Not on file Legal Sex Male 10:30 PM EST Gender Identity Not on file Sexual Orientation Not on file Obstetrics History Last Filed Vital Signs Vital Sign Reading Time Taken Comments Blood Pressure 112/68 11/17/2024 12:53 PM EDT Pulse 60 11/17/2024 12:53 PM EDT Temperature 36.1 C (96.9 F) 11/17/2024 12:53 PM EDT Respiratory Rate 16 11/17/2024 12:53 PM EDT Oxygen Saturation 98% 11/17/2024 12:53 PM EDT Inhaled Oxygen Concentration - - Weight 103 kg (226 lb 6.4 oz) 11/17/2024 12:53 P M EDT Height 185.4 cm (6' 1 ) 11/17/2024 12:53 PM EDT Body Mass Index 29.87 11/17/2024 12:53 PM EDT Plan of Treatment Upcoming Encounters Date Type Department Care Team (Late st Contact Info) Description 06/01/2025 8:30 AM EST Office Visit [facility] [address] [facility] [address] [place] [address] Yessy Harris MD [address] [place] [phone] Health Maintenance Due Date Last Done Comments Pneumococcal Vaccine: Pediatrics (0 to 5 Years) and At-Risk Patients (6 to 49 Years) (1 of 1 - PPSV23) 2007 07/21/2002, 07/21/2002, 02/07/2002, Additional history exists Hepatitis A Vaccines (2 of 2 - 2-dose series) 05/27/2015 11/24/2014 Meningococcal B Vaccine (1 of 2 - Standard) 2017 Social Influencers of Health Screening 06/24/2022 COVID-19 Vaccine ( season) 2024 01/10/2021, 12/13/2020 Depression Screening 07/16/2024 Influenza Vaccine (#1) 2025 0, 03/21/2019, 05/14/2018, Additional history exists Cholesterol Screening (Lipid Panel) 04/16/2025 04/16/2020 DTaP,Tdap,and Td Vaccines (8 - Td or Tdap) 03/06/2030 03/06/2020, 10/21/2012, 10/05/2005, Additional history exists Hepatitis B Vaccines Completed 05/12/2002, 2001, 2001 HIB Vaccines Completed 11/14/2002, 08/2002, 02/07/2002, Additional history exists IPV Vaccines Completed 10/05/2005, 0 08/2002, 05/12/2002, Additional history exists MMR Vaccines Completed 10/05/2005, 08/15/2002 HPV Vaccines Completed 05/12/2014, 10/14, 10/21/2012 Varicella Vaccines Completed 05/12/2014, 08/15/2002 Meningococcal ACWY Vaccine Completed 05/14/2018, HIV Screening Completed 11/03/2022 Hepatitis C Screening Completed 11/03/2022 RSV Immunization Patients Under 20 months Aged Out No longer eligible based on patient's age to complete this topic Procedures Procedure Name Priority Date/Time Associated Diagnosis Comments HEPATITIS C SCREENING Routine 11/03/2022 HIV SCREENING Routine 11/03/2022 LIPID PANEL Routine 04/16/2020 from Last 3 Months or Most Recently Relevant to Health Maintenance Results * HIV Screening (11/03/2022) HIV Screening Abstracted [facility] Provider HEALTH MAINTENANCE Final Result * Hepatitis C Screening (11/03/2022) Hepatitis C Screening Abstracted [facility] Provider HEALTH MAINTENANCE Final Result * (ABNORMAL) Lipid panel (04/16/2020) LDL/HDL Ratio 4 0 - 4 Triglycerides 221(A) 0 - 150 mg/dL Cholesterol 172 0 - 200 mg/dL HDL 40 >=40 mg/dL LDL Cholesterol 88 0 - 100 mg/dL Blood Venous blood specimen / Unknown [facility] Provider LAB BLOOD ORDERABLES Jessenia l Result from Last 3 Months or Most Recently Relevant to Health Maintenance Insurance [facility] [place] [address] Care Teams Mineral Industry Teacher Relationship Specialty Start Date End Date Ramon Godwin MD [address] [place] [address] PCP - General Internal Medicine 12/08/21
--- OUTSIDE RECORDS SUMMARY | 2025-03-14 23:35 | XMS_ITS | Encounter Summary ---
Author Organization [facility] Address [address] [place] [address] Care Team Providers Care Concierge Manager Name Role Phone John Collier MD Primary Care Provider Lio Islas MD Primary Care Provider Lio Islas MD Primary Care Provider Lio Islas MD Unavailable Unavailable Ari Cueto MD Primary Care Provider [phone] Ramon Godwin Primary Care Provider [phone] Encounter Details Date Type Department Care Team Description 09/10/2019 Release of Information Medical Records [address] [place] [id number] Abstract, Provider Social History Tobacco Use Types Packs/Day Years [...] on filedocumented in this encounter Care Teams Concierge Manager Relationship Specialty Start Date End Date John Collier MD PCP - General Pediatrics 05/05/15 03/07/20 Lio Gerard MD PCP - General Internal Medicine 03/08/20 05/27/20 Lio Gerard MD PCP - General 05/28/20 10/26/21 Ari Cueto MD [address] [place] [address] [id number] PCP - General Internal Medicine 10/27/21 12/07/21 Ramon Godwin [address] [place] [id number] PCP - General Internal Medicine 12/08/21 Lio Gerard MD Internal Medicine 05/28/20 documented as of this encounter
--- OUTSIDE RECORDS SUMMARY | 2025-03-14 23:35 | XMS_ITS | Encounter Summary ---
Author Organization [facility] Address [address] [place] [address] Care Team Providers Care Paper Coating Machine Operator Name Role Phone John Collier MD Primary Care Provider Lio Islas MD Primary Care Provider Lio Islas MD Primary Care Provider Unava Lio Cloud MD Unavailable Unavailable Ari Cueto MD Primary Care Provider [phone] Ramon Godwin Primary Care Provider [phone] Encounter Details Date Type Department Care Team Description 03/09/2016 Sales Facilitator Report Medical Records [address] [place] [address] Jane Archibald MD Social History Tobacco Use Types Packs/Day Years Used Date Smoking Tobacco: Never Alcohol Use Standard Drinks/Week Comments [...] on filedocumented in this encounter Care Teams Paper Coating Machine Operator Relationship Specialty Start Date End Date John Collier MD PCP - General Pediatrics 05/05/15 03/07/20 Lio Gerard MD PCP - General Internal Medicine 03/08/20 05/27/20 Lio Gerard MD PCP - General 05/28/20 10/26/21 Ari Cueto MD [address] [place] [address] PCP - General Internal Medicine 10/27/21 12/07/21 Ramon Godwin [address] [place] [id number] PCP - General Internal Medicine 12/08/21 Lio Gerard MD Internal Medicine 05/28/20 documented as of this encounter
--- OUTSIDE RECORDS SUMMARY | 2025-03-14 23:35 | XMS_ITS | Encounter Summary ---
Author Organization [facility] Address [address] [place] [address] Care Team Providers Care Gate Operator Name Role Phone Lio Gerard MD Unavailable Unavailable Ramon Godwin Primary Care Provider [phone] Reason for Visit * Reason Onset Date Comments hospital follow up 03/27/2022 Encounter Details Date Type Department Care Team Description 03/27/2022 Telephone Pulmonology - [address] [place] [phone] Bobby Plaza MD hospital follow up Social History Tobacco Use Types Packs/Day Years [...] encounter Miscellaneous Notes * Telephone Encounter - Cathy Harper MD - 03/28/2022 4:[address] Plaza gets back please- can double book * Telephone Encounter - Juana Oliveira - 03/27/2022 4:58 PM EDT Patient calling he would like to get seen sooner since he was in the ER yesterday again with breathing problems. Please Advise he does have a hospital follow up already for 04/05 documented in this encounter Plan of Treatment Not on file documented as of this encounter Visit Diagnoses Not on filedocumented in this encounter Care Teams Gate Operator Relationship Specialty Start Date End Date Ramon Godwin [address] [place] [address] PCP - General Internal Medicine 12/08/21 Lio Gerard MD Internal Medicine 05/28/20 documented as of this encounter
--- OUTSIDE RECORDS SUMMARY | 2025-03-14 23:35 | XMS_ITS | Encounter Summary ---
Author Organization [facility] Address [address] [place] [address] Care Team Providers Care Group Therapist Name Role Phone John Collier MD Primary Care Provider Lio Islas MD Primary Care Provider Lio Islas MD Primary Care Provider Maddiva Lio Cloud MD Unavailable Unavailable Ari Cueto MD Primary Care Provider [phone] Ramon Godwin Primary Care Provider [phone] Encounter Details Date Type Department Care Team Description 03/14/2017 Bag Sorter Report Medical Records [address] [place] [id number] Alvaro Canales Social History Tobacco Use Types Packs/Day Years [...] on filedocumented in this encounter Care Teams Group Therapist Relationship Specialty Start Date End Date John Collier MD PCP - General Pediatrics 05/05/15 03/07/20 Lio Gerard MD PCP - General Internal Medicine 03/08/20 05/27/20 Lio Gerard MD PCP - General 05/28/20 10/26/21 Ari Cueto MD [address] [place] [id number] PCP - General Internal Medicine 10/27/21 12/07/21 Ramon Godwin [address] [place] [id number] PCP - General Internal Medicine 12/08/21 Lio Gerard MD Internal Medicine 05/28/20 documented as of this encounter
--- OUTSIDE RECORDS SUMMARY | 2025-03-14 23:35 | XMS_ITS | Encounter Summary ---
Author Organization [facility] Address [address] [place] [address] Care Team Providers Care Dog Boarder Name Role Phone Lio Gerard MD Unavailable Unavailable Ramon Godwin Primary Care Provider [phone] Reason for Visit * Reason Onset Date Comments refill request 05/14/2024 Encounter Details Date Type Department Care Team Description 05/14/2024 Refill Pulmonology - [place] [address] [phone] Yessy Harris MD [address] [phone] refill request Social History Tobacco Use Types Packs/Day Years Used Date Smoking Tobacco: Some Days Cigarettes Smokeless Tobacco: Never Comments:Smokes 1/2 ppd some times less Alcohol Use Standard Drinks/Week Comments Not Currently 0 (1 standard drink = 0.6 oz pur e alcohol) Sex Assigned at Date Recorded Not on file Job Start Date Occupation Industry Not on file Not on file Not on file documented as of this encounter Miscellaneous Notes * Telephone Encounter - Matilde Burciaga - 05/14/2024 11:40 AM EDT Patient completely out was unaware Dr. Plaza left practice jadiel 07/07/2023 Nov 05/20/2024 90 day supply documented in this encounter Plan of Treatment Not on file documented as of this encounter Visit Diagnoses Diagnosis Moderate persistent asthma with acute exacerbation documented in this encounter Care Teams Dog Boarder Relationship Specialty Start Date End Date Ramon Godwin [address] [place] [id number] PCP - General Internal Medicine 12/08/21 Lio Gerard MD Internal Medicine 05/28/20 documented as of this encounter
--- OUTSIDE RECORDS SUMMARY | 2025-03-14 23:35 | XMS_ITS | Encounter Summary ---
Author Organization [facility] Address [address] [place] [address] Care Team Providers Care Care Consultant Name Role Phone Lio Gerard MD Unavailable Unavailable Ramon Godwin Primary Care Provider [phone] Encounter Details Date Type Department Care Team Description 04/13/2024 Hospital Medical Records [address] [place] [address] [facility] Social History Tobacco Use Types Packs/Day Years [...] on filedocumented in this encounter Care Teams Care Consultant Relationship Specialty Start Date End Date Ramon Godwin [address] [place] [address] PCP - General Internal Medicine 12/08/21 Lio Gerard MD Internal Medicine 05/28/20 documented as of this encounter
--- OUTSIDE RECORDS SUMMARY | 2025-03-14 23:35 | XMS_ITS ---
Author Name [facility] Organization Unknown Care Team Organization Name Specialty Phone Email Start Date End Da te [facility] Ramon Godwin Primary Care 05/23/202202/13
--- NOTE | 2025-03-15 01:27 | ED_ITS ---
HPI - Fall General Chief Complaint: Fall Stated Complaint: abd pain,migraine Time Seen by Provider: 03/15/25 00:20 Source: patient Mode of arrival: ambulatory Limitations: no limitations History of Present Illness ED Provider: Dr. Velma Collins HPI Narrative: 24-year-old male with history of ADHD and bipolar disorder presenting with headaches, brain fog, lightheadedness ongoing for the last 4 days after hitting his head after a fall. Reports he was helping a friend did go hole and was standing on top of a bulldozer when he fell off the bucket, landing on the ground, hitting his head on the concrete. He did not lose consciousness at the time but reports a headache. Was able to ambulate after the fall without assistance. Denies other injury. Since that time has been having worsening headaches and feels lightheaded at times. Today felt like he might pass out. Never lost consciousness though. Denies associated chest pain, difficulty breathing, abdominal pain, nausea or vomiting, bowel changes, urinary complaints, lower extremity edema or pain, family history of early onset heart disease or sudden cardiac . Related Data Home Medications ?Medication ?Instructions ?Recorded ?Confirmed fluticasone propionate 230 2 puff inhalation BID 01/3001/31/24 mcg-salmeterol 21 mcg/actuation HFA inhaler (Advair HFA) Previous Rx's ?Medication ?Instructions ?Recorded albuterol sulfate 90 mcg/actuation 2 puff inhalation Q 4-6H PRN 12/07/24 aerosol inhaler shortness of breath or wheez ing #8.5 grams fluticasone propionate 230 2 puff inhalation BID #12 g tristan 12/07/24 mcg-salmeterol 21 mcg/actuation HFA inhaler (Advair HFA) prednisone 50 mg tablet 50 mg PO DAILY #4 tabs 12/07 fluticasone 100 mcg-salmeterol 50 1 inh inhalation BID #60 ea 12/10/24 mcg/dose blistr powdr for inhalation (Advair Diskus) albuterol sulfate 2.5 mg/3 mL 2.5 mg (3 mL) inhalation Q6-8H PRN 01/25/25 (0.083 %) solution for nebulization shortness of breat h or wheezing #180 mL azithromycin 250 mg tablet See Rx Instructions PO .COM PLEX #6 01/25/25 tabs guaifenesin 1,200 mg tablet, 1,200 mg PO BID #14 tabs 01/25/25 extended release 12 hr prednisone 20 mg tablet 40 mg (2 x 20 mg) PO DAILY # 10 tabs 01/25/25 elbgwdxxze-avcodaouadthf-nwrglsdp 1 cap PO TID PRN hea dache 3 days 03/15/25 50 mg-300 mg-40 mg capsule #10 caps (Fioricet) Allergies Allergy/AdvReac Type Severity Reaction Status Date / Time amphetamine (From Adderall) Allergy Intermediate Chills Verified 03/14/25 22:52 dextroamphetamine (From Allergy Intermediate Chills Verified 03/14/25 22:52 Adderall) aripiprazole (From Abilify) AdvReac Severe Anaphylaxis Verified 03/14/25 22:52 Review of Systems Review of Systems: as per HPI, full review of systems performed and negative but for the above mentioned pertinent positives and negatives. [facility] Past Medical History Medical History Mood disorder Asthma Social History Social History Household Members: Other Household Members Other:: Lives at [facility] Housing: Other Housing Other:: [facility] Alcohol intake: never Patient Tobacco Use Status: Current everyday Tobacco user Tobacco use type: Cigarette Cigarettes Per Day: 7 Years Smoked: 4 e-Cigarette/Vaping Use: Never Used Second Hand Smoke Exposure: Yes Substance Use Type: Marijuana service: No Sexual orientation: Straight/Heterosexual Physical Exam Exam: Exam: GENERAL: Uncomfortable-Appearing, conversant, mild distress due to pain. SKIN: Normal skin color for ethnicity, warm, dry, intact, no rashes noted. HEENT:? Normocephalic, atraumatic, no stridor, airway patent, no raccoon's eyes, no Barbosa sign, dentition intact, EOMI. NECK: Soft, supple, full ROM, midline structures nontender, no step-offs, no deformities, no lymphadenopathy. CHEST: Heart regular rate and rhythm, no murmurs, symmetric chest rise and fall, no crepitus. PULMONARY: Clear to auscultation bilaterally, no labored breathing, no wheezes/rhales/rhonchi. ABDOMINAL: Soft, nondistended, nontender, positive bowel sounds in all quadrants. : Deferred. MUSCULOSKELETAL: Normal tone, full range of motion, no deformities, no contusions, hypertonicity of the bilateral trapezius musculature. NEURO: Alert and oriented x3, CN II through XII intact, equal strength and sensation bilateral upper and lower extremities, no focal neurologic deficits.? PSYCHIATRIC: Anxious affect, fluid speech, good eye contact and appropriate demeanor. Vital Signs: Vital Signs: Last Vital Signs Temp 97.5 F 03/15/25 01:41 Pulse 57 03/15/25 01:41 Resp 18 03/15/25 01:41 BP 133/62 03/15/25 01:41 Pulse Ox 94 03/15/25 01:41 O2 Del Method Room Air 03/15/25 01:41 BMI result Body Mass Index 28.0 Medications Administered Discontinued Medications Generic Name Dose Route Start Last Admin Trade Name Freq PRN Reason Stop Dose Admin Acetaminophen 975 mg 03/15/25 01:28 03/15/25 01:37 Acetaminophen 325 Mg Tablet PO 03/15/25 01:29 975 mg ONCE ONE Administration Medical Decision Making Medical Decision Making [facility] Narrative: Patient presents today with chief complaint of head trauma. Different diagnosis on this patient includes intracranial hemorrhage, skull fracture, neck injury including fracture or spinal cord pathology. Other diagnoses considered would include chest or abdominal trauma as well as long bone fractures. Based on my physical exam, the ordered imaging modalities are indicated. The patient specifically does not show any signs of central cord syndrome as evidenced by equal strength in the upper extremities with normal two-point discrimination. Sensation is not altered. GCS is appropriate. Patient is neurovascularly intact. There are no signs of vascular emergency. No signs of shock. No respiratory distress. Patient was given motrin for pain control. CT imaging is negative for acute trauma. He has post concussive syndrome and we discussed this at length. Using shared decision making, plan for discharge home to follow-up with primary care and/or specialist.? Patient understands and agrees with plan for discharge.? Discharged home in stable condition. Differential Diagnosis Differential Diagnoses: The differential diagnosis associated with the presentation includes (as above) Admission/Observation Consideration of admission/observation: Escalation of care including admission/observation considered Radiology Impression Discussion of test interpretation with radiology: I have reviewed the radiologist's reading. Radiologist Impression: CT head without contrast Comparison: CT/REG/SR - CT HEAD WITHOUT IV CONTRAST - 01/11/24 14:24 EDT Findings: No intracranial mass, midline shift, hydrocephalus, or acute hemorrhage. Mild right cerebellar tonsillar ectopia redemonstrated. Mild mucosal thickening identified within the ethmoid air cells with minimal mucosal thickening at the right maxillary sinus. The bilateral mastoid air cells appear clear. No acute skull fracture. Impression: 1. No acute intracranial abnormality. No acute intracranial hemorrhage. CT cervical spine without contrast Comparison: CT/SR - CT CERVICAL SPINE WITHOUT IV CONTRAST - 01/11/24 14:24 EDT Findings: The visualized portions of the bilateral lung apices appear clear. Mild levocurvature present at the cervical spine. No cervical spondylolisthesis. No acute fractures or dislocations. No significant degenerative endplate changes at the cervical spine. Impression: 1. No acute fracture or dislocation injury identified at the cervical spine. Prescription Management I considered prescription management with: Pain Medication Discharge Plan Discharge Clinical Impression: Concussion without loss of consciousness, Fall from height of greater than 3 feet Patient Disposition: Home, Self-Care Instructions: Post Concussion Syndrome (ED) Additional Instructions: You need to rest your brain. Use Tylenol and ibuprofen as needed for headaches. If your headaches are severe, you may try to use Fioricet. Do not drive with this medication as it can make you drowsy. Return to the emergency department with any new or worsening symptoms including: Worsening headaches despite medications, vomiting, fevers greater than 100?, any new symptom that concerns you. Call 911 with any medical emergency. Prescriptions: New uhibymysii-hxzrcnxnqbzql-hgto [Fioricet] 50-300-40 mg capsule 1 cap PO TID PRN (Reason: headache) 3 Days Qty: 10 0RF No Action fluticasone propion-salmeterol [Advair HFA] 230-21 mcg/actuation HFA aerosol inhaler 2 puff inhalation BID Qty: 12 0RF albuterol sulfate 90 mcg/actuation HFA aerosol inhaler 2 puff inhalation Q4-6H PRN (Reason: shortness of breath or wheezing) Qty: 8.5 0RF prednisone 50 mg tablet 50 mg PO DAILY Qty: 4 0RF fluticasone propion-salmeterol [Advair Diskus] 100-50 mcg/dose blister with device 1 inh inhalation BID Qty: 60 0RF prednisone 20 mg tablet 40 mg PO DAILY Qty: 10 0RF azithromycin 250 mg tablet See Rx Instructions .ROUTE .COMPLEX Qty: 6 0RF Rx Instructions: For 250 mg dose pack: take 500 mg today (day 1), then 250 mg for 4 days (days 2-5) guaifenesin 1,200 mg tablet extended release 12hr 1,200 mg PO BID Qty: 14 0RF albuterol sulfate 2.5 mg /3 mL (0.083 %) solution for nebulization 2.5 mg inhalation Q6-8H PRN (Reason: shortness of breath or wheezing) Qty: 180 0RF fluticasone propion-salmeterol [Advair HFA] 230-21 mcg/actuation HFA aerosol inhaler 2 puff inhalation BID Interventions: ED Discharge Assessment Last Done: 03/15/25 01:41 Discharge Date/Time: 03/15/25 01:43 Print Language: Israeli
[2025-03-15 01:41] VITALS: BP 133/62; PULSE 57; RESP 18; TEMP 36.4; O2SAT 94
== END 2025-03-15 01:43 | disposition home or self-care (01) ==
PROVIDERS: Emergency Provider Emergency Medicine
DX: S06.0X0A Concussion without loss of consciousness, initial encounter (principal); R51.9 Headache, unspecified; M54.2 Cervicalgia; X58.XXXA Exposure to other specified factors, initial encounter; Y93.9 Activity, unspecified; Y92.9 Unspecified place or not applicable; Y99.8 Other external cause status; F17.210 Nicotine dependence, cigarettes, uncomplicated; Z79.899 Other long term (current) drug therapy
CPT/HCPCS: 70450; 72125; 99284

== ENCOUNTER → 2025-03-14 23:40 | Outpatient (BNV) | payer OTHER, SELFPAY | PROVIDERS: Emergency Provider Emergency Medicine; Visit Provider Radiology Diagnostic Radiology | DX: R51.9 Headache, unspecified (principal); W17.89XA Other fall from one level to another, initial encounter | CPT/HCPCS: 70450; 72125 ==

== ENCOUNTER 2025-04-29 16:52 | Emergency (ER) | payer OTHER, SELFPAY ==
[2025-04-29] VITALS (7 sets, daily range): BP systolic 127–139; BP diastolic 46–65; PULSE 70–91; RESP 15–24; TEMP 36.3–36.9; O2SAT 94–98; BMI 29.0
--- NOTE | ~2025-04-29 | XR_ITS ---
CLINICAL HISTORY: sob 1 view chest x-ray Comparison: CR - XR CHEST 2V - 01/25/25 10:11 EDT Findings: No consolidation or effusion. Heart size is normal. No acute fracture. IMPRESSION: 1. No acute findings. This document has been electronically signed by: Rian Jenkins MD on 04/29/2025 18:05:42
--- NOTE | 2025-04-29 16:56 | ECG_ITS ---
Test Reason : SOB Blood Pressure : */* mmHG Vent. Rate : 73 BPM Atrial Rate : 73 BPM P-R Int : 126 ms QRS Dur : 82 ms QT Int : 366 ms P-R-T Axes : 58 14 17 degrees QTcB Int : 403 ms Normal sinus rhythm Septal infarct , age undetermined Abnormal ECG When compared with ECG of 25-Jan-2025 09:09, No significant change was found Referred By: [place] Ding Electronically Signed By: Martín Zaragoza
--- NOTE | 2025-04-29 16:58 | ED.GENADULT ---
HPI - General Adult General Chief complaint: Asthma Stated complaint: asthma attack Time Seen by Provider: 04/29/25 17:02 Source: patient Mode of arrival: ambulatory Limitations: no limitations History of Present Illness ED Provider: Dr. Alamo [facility] narrative: This is a 24-year-old male history of asthma presented hospital today for evaluation of shortness of breath. Patient does have history of asthma. He has a nebulizer at home. Patient stated that his nebulizer machine did not work. He was working [employer] today when the asthma attack happened all of a sudden. Related Data Home Medications ?Medication ?Instructions ?Recorded ?Confirmed fluticasone propionate 230 2 puff inhalation BID 01/31/24 01/31/24 mcg-salmeterol 21 mcg/actuation HFA inhaler (Advair HFA) Previous Rx's ?Medication ?Instructions ?Recorded albuterol sulfate 90 mcg/actuation 2 puff inhalation Q4-6H PRN 12/07/24 aerosol inhaler shortness of breath or wheezing #8.5 grams fluticasone propionate 230 2 puff inhalation BID #12 grams 12/07/24 mcg-salmeterol 21 mcg/actuation HFA inhaler (Advair HFA) prednisone 50 mg tablet 50 mg PO DAILY #4 tabs 12/07/24 fluticasone 100 mcg-salmeterol 50 1 inh inhalation BID #60 ea 12/10/24 mcg/dose blistr powdr for inhalation (Advair Diskus) albuterol sulfate 2.5 mg/3 mL 2.5 mg (3 mL) inhalation Q6-8H PRN 01/25/25 (0.083 %) solution for nebulization shortness of breath or wheezing #180 mL azithromycin 250 mg tablet See Rx Instructions PO .COMPLEX #6 01/25/25 tabs guaifenesin 1,200 mg tablet, 1,200 mg PO BID #14 tabs 01/25/25 extended release 12 hr prednisone 20 mg tablet 40 mg (2 x 20 mg) PO DAILY #10 tabs 01/25/25 cvosquqzoi-idxbxuvuyxess-mtkdgwwu 1 cap PO TID PRN headache 3 days 03/15/25 50 mg-300 mg-40 mg capsule #10 caps (Fioricet) albuterol sulfate 90 mcg/actuation 2 puff inhalation Q6H PRN 10/15/25 aerosol inhaler (Ventolin HFA) shortness of breath or wheezing 30 days #6.7 grams fluticasone propionate 115 2 inh inhalation Q12H 30 days #12 04/29/25 mcg-salmeterol 21 mcg/actuation grams HFA inhaler (Advair HFA) prednisone 50 mg tablet 50 mg PO DAILY 5 days #5 tabs 04/29/25 Allergies Allergy/AdvReac Type Severity Reaction Status Date / Time amphetamine (From Adderall) Allergy Intermediate Chills Verified 04/29/25 17:12 dextroamphetamine (From Allergy Intermediate Chills Verified 04/29/25 17:12 Adderall) aripiprazole (From Abilify) AdvReac Severe Anaphylaxis Verified 04/29/25 17:12 Review of Systems Review of Systems: Pertinent review of systems as mentioned in HPI. All other system otherwise negative. [facility] Past Medical History [facility] Narrative: Asthma Medical History Mood disorder Asthma Social History Social History Household Members: Other Household Members Other:: Lives at [facility] Housing: Other Housing Other:: [facility] Alcohol intake: never Patient Tobacco Use Status: Current everyday Tobacco user Tobacco use type: Cigarette Cigarettes Per Day: 7 Years Smoked: 4 Smoked in Last 30 Days: No e-Cigarette/Vaping Use: Never Used Second Hand Smoke Exposure: Yes Use of substances other than those prescribed or required for medical reasons: No Substance Use Type: Marijuana Advance Directives: No Advance Directives Information Provided: No service: No Sexual orientation: Straight/Heterosexual Physical Exam ED Exam Exam: General: Appears to respiratory distress Head: Normacephalic, atraumatic ENT: oral mucosa moist, neck supple, no tracheal deviation Cardiovascular: regular rate, regular rhythm, no murmurs, rubbing, gallops Respiratory: Tachypneic, wheezing bilaterally Gastrointestinal: Soft, non distended, non tender, non guarding Extremities: No limb pain or swelling, no calf tenderness Neurological: Awake and alert, no facial droop noted Skin: Warm and dry Psychiatric: Appropriate mood and thoughts Vital Signs: Vital Signs - 24 hr 04/29/25 17:09 04/29/25 17:10 04/29/25 17:20 Temperature 97.4 F Pulse Rate 81 70 91 Respiratory Rate 24 H 16 16 Blood Pressure 139/53 L Pulse Oximetry 94 98 Oxygen Delivery Method Room Air Room Air 04/29/25 18:45 04/29/25 19:55 Temperature 98.3 F Pulse Rate 86 Respiratory Rate 18 Blood Pressure 132/46 L Pulse Oximetry 97 96 Oxygen Delivery Method Room Air BMI result Body Mass Index 29.0 Course Course Course Narrative: This is a Rapid Medical Examination (RME) performed by Maida Ding PA-C in triage. Full HPI, ROS, assessment and treatment plan per primary provider in the Main ED. Hx: 24 yo M here for eval of cough and SOB. [place] [facility] [place] up to the ED on his hands and knees with an inhaler in his hand. unable to verbalize complaint d/t shortness of breath. used his inhaler 3x [employer] airline [employer]. states he became SOB while driving to work, pulled off the street to ED. PE/vitals: tripoding, hyperventilating, bronchospastic cough. lungs clear. speaking in 1-2 word sentences. Plan: labs, ekg, cxr, viral swabs Medications Administered Discontinued Medications Generic Name Dose Route Start Last Admin Trade Name Freq PRN Reason Stop Dose Admin Albuterol Sulfate 7.5 mg/ 0 mg 04/29/25 17:04 04/29/25 17:09 Albuterol/Ipratropium 3 ml INHALE 04/29/25 17:05 2.5 each ONCE ONE Administration Famotidine 20 mg 04/29/25 17:02 04/29/25 17:16 Famotidine/Pf 20 Mg/2 Ml Vial IVPUSH 04/29/25 17:03 20 mg ONCE ONE Administration Magnesium Sulfate 2 gm in 50 mls @ 50 mls/hr 04/29/25 17:02 04/29/25 18:49 Magnesium Sulfate/H2o IV 04/29/25 18:01 Infused ONCE ONE Infusion Methylprednisolone Sodium Succinate 60 mg 04/29/25 17:00 04/29/25 17:16 Methylprednisolone Sod Succ 125 Mg/2 Ml Vial IVPUSH 04/29/25 17:01 60 mg ONCE ONE Administration Medical Decision Making Medical Decision Making MDM Narrative: 24-year-old male history of asthma presented hospital to in respiratory distress. Appear to be severely tachypneic. Satting 91% at this time. Patient is placed on residential monitor., ED brown protocol activated, IV magnesium will be given. Solu-Medrol IV has been ordered for the patient we will obtain a chest x-ray that as well. On reassessment the patient's breathing has improved. We will continue to observe the patient does time. Patient's chest x-ray is unremarkable. Patient was able to ambulate without any signs of hypoxia. Patient appears to be much better at this time. He will be discharged home with a close outpatient follow up. Prednisone will be prescribed to the patient's inhaler will be prescribed to the patient and we will refill his Advair as well. Patient is we will be discharged. Differential Diagnosis Differential Diagnoses: The differential diagnosis associated with the presentation includes Asthma exacerbation, pneumonia, bronchitis Admission/Observation Consideration of admission/observation: Escalation of care including admission/observation considered Lab Data MDM Lab Attestation statement: I reviewed the patient's lab results. 04/29/25 17:07 04/29/25 17:07 Labs: Lab Results 04/29/25 Range/Units 17:07 WBC 11.6 H (4.8-10.8) X10*3/uL RBC 6.27 H (4.60-5.80) X10*6/uL Hgb 18.6 H (14.0-18.0) g/dl Hct 52.4 H (42.0-52.0) % MCV 83.6 (80.0-98.0) fL MCH 29.7 (27.0-33.0) pg MCHC 35.5 (31.0-36.0) g/dl RDW 13.0 (11.0-16.0) % Plt Count 268 (160-400) X10*3/uL MPV 9.7 (9.4-12.4) fL Immature Gran % (Auto) 0.4 (0.0-0.4) % Neut % (Auto) 51.0 (45-73) % Lymph % (Auto) 33.3 (20-40) % Teller % (Auto) 5.1 (2-11) % Eos % (Auto) 9.4 H (0-4) % Baso % (Auto) 0.8 (0-2) % Lymph # (Auto) 3.9 (1.2-4.9) X10*3/uL Teller # (Auto) 0.6 (0.1-1.2) X10*3/uL Eos # (Auto) 1.1 H (0.0-0.4) X10*3/uL Baso # (Auto) 0.1 (0.0-0.2) X10*3/uL Abs Immat Gran (auto) 0.05 H (0.00-0.03) X10*3/uL Absolute Neuts (auto) 5.9 (2.0-8.3) x10*3/uL Absolute Nucleated RBC 0.000 (0.0-0.012) X10*3/uL Nucleated RBC % (auto) 0.0 (0.0-0.2) /100WBC Sodium 142 (135-145) mmol/L Potassium 4.0 (3.3-5.1) mmol/L Chloride 108 (96-108) mmol/L Carbon Dioxide 22 (22-29) mmol/L Anion Gap 16 (12-20) BUN 16 (9-16) mg/dL Creatinine 1.18 (0.5-1.4) mg/dL Estim Creat Clear Calc 120.9 Estimated GFR > 60 Random Glucose 81 (60-115) mg/dL Calcium 9.3 D (8.4-10.2) mg/dL Magnesium 2.5 (1.6-2.6) mg/dL Total Bilirubin 1.3 H (0.0-1.0) mg/dL AST 33 (5-37) U/L ALT 27 (0-40) U/L Alkaline Phosphatase 87 (39-117) U/L Troponin I High Sens < 2.7 (<3.5-35.0) ng/L Total Protein 7.1 (6.5-8.0) g/dL Albumin 4.8 (3.5-5.0) g/dL Independent Interpretation I performed an independent interpretation of an: Plain X-Ray Radiology Impression Discussion of test interpretation with radiology: I have reviewed the radiologist's reading. Chronic Conditions Asthma, tobacco use Critical Care Time Critical Care Time Critical Care Time: Yes Total Critical Care Time: 38 Attestation: Time is exclusive of separately billable procedures. Time includes: direct patient care, patient reassessment, coordination of patient care, interpretation of data (laboratory data, pulse oximetry, arterial blood gases and chest xrays), review of patient's medical records, medical consultation and documentation of patient care. Procedures excluded from critical care time: central intravenous line placement and electrocardiography. Discharge Plan Discharge Clinical Impression: Asthma with acute exacerbation, Acute respiratory distress Patient Disposition: Home, Self-Care Instructions: Asthma (ED) Prescriptions: New albuterol sulfate [Ventolin HFA] 90 mcg/actuation HFA aerosol inhaler 2 puff inhalation Q6H PRN (Reason: shortness of breath or wheezing) 30 Days Qty: 6.7 0RF prednisone 50 mg tablet 50 mg PO DAILY 5 Days Qty: 5 0RF fluticasone propion-salmeterol [Advair HFA] 115-21 mcg/actuation HFA aerosol inhaler 2 inh inhalation Q12H 30 Days Qty: 12 0RF No Action fluticasone propion-salmeterol [Advair HFA] 230-21 mcg/actuation HFA aerosol inhaler 2 puff inhalation BID Qty: 12 0RF albuterol sulfate 90 mcg/actuation HFA aerosol inhaler 2 puff inhalation Q4-6H PRN (Reason: shortness of breath or wheezing) Qty: 8.5 0RF prednisone 50 mg tablet 50 mg PO DAILY Qty: 4 0RF fluticasone propion-salmeterol [Advair Diskus] 100-50 mcg/dose blister with device 1 inh inhalation BID Qty: 60 0RF prednisone 20 mg tablet 40 mg PO DAILY Qty: 10 0RF azithromycin 250 mg tablet See Rx Instructions .ROUTE .COMPLEX Qty: 6 0RF Rx Instructions: For 250 mg dose pack: take 500 mg today (day 1), then 250 mg for 4 days (days 2-5) guaifenesin 1,200 mg tablet extended release 12hr 1,200 mg PO BID Qty: 14 0RF albuterol sulfate 2.5 mg /3 mL (0.083 %) solution for nebulization 2.5 mg inhalation Q6-8H PRN (Reason: shortness of breath or wheezing) Qty: 180 0RF fluticasone propion-salmeterol [Advair HFA] 230-21 mcg/actuation HFA aerosol inhaler 2 puff inhalation BID gxtxrqmirb-chbuddarrotyi-gchc [Fioricet] 50-300-40 mg capsule 1 cap PO TID PRN (Reason: headache) 3 Days Qty: 10 0RF Print Language: Swedish
[2025-04-29] MEDS: Albuterol Sulfate 7.5 MG, Albuterol/Iprat 2.5/0.5MG 3 ML 3 ML INHALE (17:09)
[2025-04-29 17:13] LABS: Hematocrit 52.4 % (42.0-52.0); Hemoglobin 18.6 g/dl (14.0-18.0); Imm Gran Abs Auto 0.05 X10*3/uL (0.00-0.03); Imm Gran Pct Auto 0.4 % (0.0-0.4); Lymphocytes Absolute Auto 3.9 X10*3/uL (1.2-4.9); MANUAL DIFF FLAG NO; Mean Corpuscular HGB Conc 35.5 g/dl (31.0-36.0); Mean Corpuscular Hemoglobin 29.7 pg (27.0-33.0); Mean Corpuscular Volume 83.6 fL (80.0-98.0); NRBC Abs Auto 0.000 X10*3/uL (0.0-0.012); NRBC Pct Auto 0.0 /100WBC (0.0-0.2); Platelet Count 268 X10*3/uL (160-400); Red Blood Count 6.27 X10*6/uL (4.60-5.80); White Blood Count 11.6 X10*3/uL (4.8-10.8)
[2025-04-29] MEDS: Magnesium Sulfate/H2O 2 GM/50 ML PIGGYBACK IV (17:19)
[2025-04-29 17:38] LABS: Alanine Aminotransferase 27 U/L (0-40); Albumin Level 4.8 g/dL (3.5-5.0); Alkaline Phosphatase 87 U/L (39-117); Anion Gap 16 (12-20); Aspartate Amino Transferase 33 U/L (5-37); Blood Urea Nitrogen 16 mg/dL (9-16); Calcium 9.3 mg/dL (8.4-10.2); Carbon Dioxide 22 mmol/L (22-29); Chloride 108 mmol/L (96-108); Creatinine Clr Calc Pharmacy 120.9; Estimated Glomerular Filt Rate > 60; Magnesium 2.5 mg/dL (1.6-2.6); Potassium 4.0 mmol/L (3.3-5.1); Sodium 142 mmol/L (135-145); Total Protein 7.1 g/dL (6.5-8.0)
[2025-04-29 17:39] LABS: Troponin-I High Sensitivity < 2.7 ng/L (<3.5-35.0)
--- OUTSIDE RECORDS SUMMARY | 2025-04-29 19:34 | XMS_ITS | Clinical Summary ---
Author Organization [facility] Address [address] [place] [address] Care Team Providers Care Proof Plate Maker Name Role Phone Ramon Godwin MD Primary Care Provider [phone] Allergies Active Allergy Reactions Criticality Noted Date [...] age to complete this topic Care Teams Proof Plate Maker Relationship Specialty Start Date End Date Ramon Godwin MD [address] [place] [address] [id number] PCP - General Hospitalist Medicine 03/14/22
--- OUTSIDE RECORDS SUMMARY | 2025-04-29 19:34 | XMS_ITS | Clinical Summary ---
Author Organization [address] [facility] Address [address] [place] [address] Phone Care Team Providers Care Magneto Electrician Name Role Phone Ramon Godwin MD Primary Care Provider Allergies Active Allergy Reactions Criticality Noted Date Comments Aripiprazole Anaphylaxis High 05/07/2015 Dextroamphetamine-Ampheta mine Other,Irritable 05/07/2015 agressive Other reaction(s): Irritability, OTHER agressive Medications inhalational spacing device (BreatheRite MDI Spacer) inhaler 12/28/19 22 Active albuterol 2.5 mg /3 mL (0.083 %) nebulizer solutionIndicati ons:Moderate persistent asthma, unspecified whether complicated Take 3 mL (2.5 mg total) by nebulization every 6 (six) hours if needed for wheezing or shortness of breath. 360 mL 11 05/20/20 24 025 Active carbamide peroxide (DEBROX) 6.5 % otic solution Administer 5-10 drops into each ear 2 (two) times a day. 15 mL 09/10/19 25 Active Ventolin HFA 90 mcg/actuation inhalerIndicatio ns:Moderate persistent asthma, uncomplicated INHALE 2 PUFFS BY MOUTH EVERY 6 HOURS NEEDED FOR WHEEZE OR FOR SHORTNESS OF BREATH 54 each 3 02/10/20 25 Active omeprazole (PriLOSEC) [address] capsule TAKE 1 CAPSULE BY MOUTH 1 TIME EACH DAY. DO NOT CRUSH OR CHEW. 30 capsule 03/09/20 25 Active fluticasone propion-salmeter oL (Advair HFA) 230-21 mcg/actuation inhalerIndicatio ns:Moderate persistent asthma, unspecified whether complicated Inhale 2 puffs by mouth 2 (two) times a day. Rinse mouth with water after use to reduce aftertaste and incidence of candidiasis. Do not swallow. 3 each 3 04/21/20 25 026 Active tiotropium (Spiriva Respimat) 2.5 mcg/actuation inhalation spray Inhale 2 puffs by mouth 1 (one) time each day. 1 each 12 04/23/20 25 026 Active predniSONE (DELTASONE) 10 mg tablet Take 1 tablet (10 mg total) by mouth See administration instructions for 12 days. 24 tablet 04/23/20 25 025 Active fluticasone propion-salmeter oL (Advair HFA) 230-21 mcg/actuation inhalerIndicatio ns:Moderate persistent asthma, unspecified whether complicated Inhale 2 puffs by mouth 2 (two) times a day. Rinse mouth with water after use to reduce aftertaste and incidence of candidiasis. Do not swallow. 3 each 3 02/10/20 25 025 Discontin ued(Reord er) Active Problems Problem Noted Date Diagnosed Date Attention deficit hyperactivity disorder 024 Croup 05/20/2024 Mood disorder ([facility] V24) 05/20/2024 Posttraumatic stress disorder 05/20/2024 Asthma [...] due to food impaction Overview (05/15/2024): 06/24/18 Hortensia, removed, FU GI 4-6 weeks, omeprazol prescribed [...] 11/14/2017 communication letter , Depression and axiety Encounters Date Type Department Care Team Description 04/23/2025 2:30 PM EDT Office Visit Pulmonology - [address] [place] [address] Yessy Harris MD Moderate persistent asthma, unspecified whether complicated (Primary Dx); Chronic cough from Last 3 Months Immunizations Immunization Administration Dates Next Due DTP 2001 DTaP (Infanrix) 6wks to less than 7yo ,11/14/2002,02/07/2002,12/10,2001 [id number] (Pentacel) 2mo to less than 5yo 11/14/2002,02/07/2002,2001,10/09 HPV, Quadrivalent 05/12/2014,10/27/2013,10/22/19 13 Hepatitis A Pediatric (Havri x; Vaqta) 12mo to less than 19yo 11/24/2014 Hepatitis B (Otpaotb-A-Gypro , Recombivax HB-Adult) 19yo and older 2001 [...] deficit hyperactivity disorder) Asthma DX:Asthma Bipolar disorder ([facility] V2 4, [facility] V28) 06/27/2016 DX:Bipolar disorder ([facility]); C OMMENT: 11/10/14 meds prescribed by his [...] Date Smoking Tobacco: Every Day Cigarettes 0.3 5.1 Started: 03/2020 Smokeless Tobacco: Never Tobacco Cessation:Ready [...] Sign Reading Time Taken Comments Blood Pressure 125/69 04/23/2025 2:25 PM EDT Pulse 89 04/23/2025 2:25 PM EDT Temperature 36.1 C (97 F) 04/23/2025 2:25 PM EDT Respiratory Rate 20 04/23/2025 2:25 PM EDT Oxygen Saturation 97% 04/23/2025 2:25 PM EDT Inhaled Oxygen Concentration - - Weight 90.7 kg (200 lb) 04/23/2025 2:25 PM EDT Height 185.4 cm (6' 1 ) 04/23/2025 2:25 PM EDT Body Mass Index 26.39 04/23/2025 2:25 PM EDT Plan of Treatment Upcoming Encounters Date Type Department Care Team (Late st Contact Info) Description 10/23/2025 3:45 PM EDT Office Visit Pulmonology - [place] [address] [facility] [address] [place] [id number] Cathy Harper MD [address] [facility] [address] [place] [address] Health Maintenance Due Date Last Done Comments Pneumococcal Vaccine: Pediatrics (0 to 5 Years) and At-Risk Patients (6 to 49 Years) (1 of 1 - PPSV23, PCV20, or PCV21) 2007 07/21/2002, 07/21/2002, 02/07/2002, Additional history exists Hepatitis A Vaccines (2 of 2 - 2-dose series) 05/27/2015 11/24/2014 Meningococcal B Vaccine (1 of 2 - Standard) 2017 Social Influencers of Health Screening 06/24/2022 Depression Screening 07/16/2024 COVID-19 Vaccine (3 - season) 2025 01/10/2021, 12/13/2020 Influenza Vaccine (#1) 2025 , 03/21/2019, 05/14/2018, Additional history exists Cholesterol Screening (Lipid Panel) 04/16/2025 04/16/2020 DTaP,Tdap,and Td Vaccines (8 - Td or Tdap) 03/06/2030 03/06/2020, 10/21/2012, 10/05/2005, Additional history exists RSV Immunization Adult Patients (1 - 1-dose 75+ series) 2076 Hepatitis B Vaccines Completed 05/12/2002, 2001, 2001 HIB Vaccines Completed 11/14/2002, 08/2002, 02/07/2002, Additional history exists IPV Vaccines Completed 10/05/2005, 08/2002, 05/12/2002, Additional history exists MMR Vaccines [...] * HIV Screening (11/03/2022) HIV Screening Abstracted us Historical Provider HEALTH MAINTENANCE Final Result * Hepatitis C Screening (11/03/2022) Hepatitis C Screening Abstracted us Historical Provider HEALTH MAINTENANCE Final Result * (ABNORMAL) Lipid panel (04/16/2020) LDL/HDL Ratio 4 0 - 4 Triglycerides 221(A) 0 - 150 mg/dL Cholesterol 172 0 - 200 mg/dL HDL 40 >=40 mg/dL LDL Cholesterol 88 0 - 100 mg/dL Blood Venous blood specimen / Unknown Historical Provider LAB BLOOD ORDERABLES Jessenia paulino Result from Last 3 Months or Most Recently Relevant to Health Maintenance Insurance * Guarantor: Layla Burr Account Type Relation to Patient Date of Phone Billing Address Personal/Family Self [address] [place] [address] [facility] [email or web address] Care Teams Magneto Electrician Relationship Specialty Start Date End Date Ramon Godwin MD [address], [place] PCP - General Internal Medicine 12/08/21
--- NOTE | 2025-04-29 19:56 | PC.NURSE ---
this RN assumed care of this pt @1900, pt was ambulated w/ pulse oximetry monitoring, pt was able to ambulate independently around ED, tolerated well, SPO2 96% consistently during ambulation, pt denies SOB/Dyspnea w/ ambulation
== END 2025-04-29 20:33 | disposition home or self-care (01) ==
PROVIDERS: Physician Assistant Medical; Emergency Provider Student in an Organized Health Care Education/Training Program
DX: J45.901 Unspecified asthma with (acute) exacerbation (principal); R06.03 Acute respiratory distress; R06.02 Shortness of breath; R94.31 Abnormal electrocardiogram [ECG] [EKG]; Z79.899 Other long term (current) drug therapy
CPT/HCPCS: 36415; 71045; 80053; 83735; 84484; 85025; 93005; 94640; 96365; 96366; 96375; 99284; 99285; J1308; J2919; J3475

== ENCOUNTER → 2025-04-29 16:56 | Outpatient (BNV) | payer OTHER, SELFPAY | PROVIDERS: Emergency Provider Student in an Organized Health Care Education/Training Program; Visit Provider Internal Medicine Cardiovascular Disease | DX: R94.31 Abnormal electrocardiogram [ECG] [EKG] (principal); R06.02 Shortness of breath | CPT/HCPCS: 93010 ==

== ENCOUNTER → 2025-04-29 17:24 | Outpatient (BNV) | payer OTHER, SELFPAY | PROVIDERS: Emergency Provider Student in an Organized Health Care Education/Training Program; Visit Provider Radiology Diagnostic Radiology | DX: R06.02 Shortness of breath (principal) | CPT/HCPCS: 71045 ==